=== PATIENT | female | born 1930 | race African-American/Black ===

== ENCOUNTER 2016-04-08 13:54 | Emergency (ER) | payer OTHER ==
[~2016-04-08] VITALS: Ht 157.5 cm; Wt 74.8 kg
[~2016-04-08 13:54] MED LIST: ALDACTONE25 MG PO; COREG25 M1 PO; COUMADIN 7.5 M7.5 MG PO; COUMADIN4 M1 PO; FUROSEMIDE40 MG PO; HYDRALAZINE HCL25 MG PO; IMDUR 60MG TAB60 MG PO; JANUVIA25 M1 PO; LASIX20 MG PO; LASIX80 MG PO; LOVENOX 8080 MG/0.8 SC; PRINIVIL 5MG5 MG PO; SIMVASTATIN40 M1 PO; SPIRONOLACTONE25 MG PO; ZAROXOLYN 2.5M2.5 MG PO
--- NOTE | 2016-04-08 14:17 | ED UPPER/LOWER EXTREMITY COMPL ---
History of Present Illness General Chief Complaint: Lower Extremity Problems Stated Complaint: LEFT LEG PAIN Source: patient Exam Limitations: no limitations Allergies Coded Allergies: NO KNOWN ALLERGIES (01/01/13) Reconcile Medications Carvedilol (Coreg) 25 MG TABLET 1 TAB PO BID HEART (Reported) Furosemide 40 MG TABLET 1 TAB PO DAILY WATER PILL (Reported) Hydralazine HCl 25 MG TABLET 1 TAB PO BID BP (Reported) Isosorbide Mononitrate (Isosorbide Mononitrate ER) 60 MG TAB.ER.24H 1 TAB PO DAILY HEART (Reported) Metolazone 2.5 MG TABLET 1 TAB PO QTHURS WATER PILL (Reported) Simvastatin (Simvastatin*) 40 MG TABLET 1 TAB PO DAILY CHOLESTEROL (Reported) Sitagliptin Phosphate (Januvia) 25 MG TABLET 1 TAB PO DAILY DM (Reported) Spironolactone (Aldactone) 25 MG TABLET 1 TAB PO DAILY WATER PILL (Reported) Warfarin Sodium (Coumadin) 4 MG TABLET 1 TAB PO Q48 BLOOD THINNER (Reported) Triage Note: 85 Y/O FEMALE BIBA FROM HOME FOR EVAL OF L LEG AND L KNEE PAIN X 1 WEEK. PER EMS AND FAMILY MEMBER, PT WAS TOLD SHE HAS ARTHRITIS AND WAS ADVISED TO TAKE TYLENOL BUT HAS NOT TAKEN SAME - "DOESNT LIKE TAKING PILLS" PER EMS. PT ARRIVES A/O X 4, SPEAKING CLEARLY WITH NO DISTRESS NOTED. DENIES INJURIES OR TRAUMA TO THE LEG STATING IS HAS JUST BEEN BOTHERING HER AND NOW SHE IS UNABLE TO AMBULATE. GUERLINE STUDENT INTO EVAL. Triage Nurses Notes Reviewed? yes HPI: this patient is an 85-year-old female with a past medical history including CHF and hypertension who presented to the emergency department today for evaluation of left knee pain. The patient reported that and started on Tuesday and has progressively been getting worse. She typically walks without a walker or cane, but starting on Tuesday she needed to use her cane. The patient reported that last night she went to stand up and began having 10 out of 10 pain in her left knee and was unable to bear weight. The patient reported that when she is laying down she does not have any pain. The pain is worse with movement and palpation. The pain is nonradiating. The patient was told that she does have some arthritis and her primary care physician suggested that she take Tylenol. The patient does not like taking pills, so she did not take any Tylenol prior to arrival in the emergency department. The patient denied any history of blood clots, calf pain, difficulty breathing, chest pain, abdominal pain, fevers, chills, or numbness or tingling in her extremities. (DIANNA GARNER PA-C) Vital Signs & Intake/Output Vital Signs & Intake/Output Vital Signs Date Time Temp Pulse Resp B/P Pulse O2 O2 Flow FiO2 Ox Delivery Rate 04/09 1133 98.2 90 18 154/68 98 Room Air 04/09 0927 98.2 96 18 119/59 97 Room Air Past History Travel History Traveled to [place] past 21 day No Medical History Any Pertinent Medical History? see below for history Neurological: DIABETIC NEROPATHY Cardiovascular: CHF, hypertension, hyperlipidemia, nonischemic cardiomyopathy with an LVEF of 15-20% LVEF of 15-20% hypertensive heart disease FALL HX Respiratory: NONE Gastrointestinal: NONE Hepatic: NONE Renal: chronic kidney disease Musculoskeletal: NONE Psychiatric: NONE Endocrine: diabetes Blood Disorders: NONE Cancer(s): SIgmoid Carcinoma, s/p Polypectomy History of MRSA: No History of VRE: No History of CDIFF: No Pneumonia Vaccine: 11/07/06 Surgical History Surgical History: non-contributory Psychosocial History Who do you live with Patient/Self Services at Home Home Health Aide, Nursing What is your primary language Sinhala Tobacco Use: Never used Family History Family History, If Any: FATHER (HTN). MOTHER (DM). BROTHER BROTHER (Lung Cancer). Relation not specified for: FH: diabetes mellitus FH: hypertension Hx Contributory? No (DIANNA GARNER PA-C) Review of Systems Review of Systems Constitutional: Reports: no symptoms. EENTM: Reports: no symptoms. Respiratory: Reports: no symptoms. Cardiovascular: Reports: no symptoms. Gastrointestinal/Abdominal: Reports: no symptoms. Genitourinary: Reports: no symptoms. Musculoskeletal: Reports: see HPI. Skin: Reports: no symptoms. Neurological/Psychological: Reports: no symptoms. All Other Systems: Reviewed and Negative (DIANNA GARNER PA-C) Physical Exam Physical Exam General Appearance: well developed/nourished, no apparent distress, alert, awake Comments: Well-developed well-nourished person in no acute distress HEENT: Normal EENT exam, head normocephalic/atraumatic. Pupils equally round and reactive to light. Back: Normal inspection Cardiovascular: Regular rate and rhythm with no murmurs, rubs or gallops Respiratory: No respiratory distress. Breath sounds clear to auscultation bilaterally Abdomen: Soft, nontender and nondistended Left lower extremity: No effusions or overlying erythema or ecchymosis to the hip or ankle. Full range of motion of the ankle and hip. Range of motion at the knee limited due to pain. Effusion to the knee noted with no overlying erythema or ecchymosis. Dorsalis pedis and posterior tibialis pulses 2+ and strong. Capillary refill less than 2 seconds. Tenderness to palpation over the patella and patellar tendon Neuro: Alert oriented x3, cranial nerves II through XII grossly intact. Skin: No appreciable rash on exposed skin, skin is warm and dry. Psych: Mood and affect is normal (PATSY ROSENTHAL,DIANNA) Progress Differential Diagnosis: arterial insufficiency, cellulitis, CHF, compartment syndrome, contusion, DVT, fracture, gout, septic arthritis, sprain, tendon injury Diagnostic Imaging: Viewed by Me: Radiology Read, Ultrasound. Discussed w/RAD: Radiology Read, Ultrasound. Radiology Impression: PATIENT: SHIRA BUCKNER PRESENT AGE: 85 PATIENT ACCOUNT NO: [id number] : 29 LOCATION: [facility] ORDERING PHYSICIAN: DIANNA GARNER PA-C SERVICE DATE: 04/08/16 EXAM TYPE: RAD - XRY-KNEE COMPLETE LEFT EXAMINATION: XR KNEE, LEFT CLINICAL INFORMATION: Left knee swelling. Evaluate for arthritis. COMPARISON: None TECHNIQUE: Four views of the left knee. FINDINGS: No acute fracture or subluxation. Mild medial compartment joint space narrowing with small tricompartmental osteophytes. There is anterior soft tissue swelling. Superior patellar enthesophyte formation. No significant joint effusion. IMPRESSION: Mild tricompartmental degenerative changes. Anterior soft tissue swelling. DICTATED BY: KARY NEWELL MD DATE/ TIME DICTATED:04/08/161505 CLEARING HOUSE CLERK:CLARICE DATE/TIME TRANSCRIBED: 04/08/161505 CONFIDENTIAL, DO NOT COPY WITHOUT APPROPRIATE AUTHORIZATION. < Electronically signed in Other Vendor System> SIGNED BY: KARY NEWELL MD 04/08/16 1513, PATIENT: SHIRA BUCKNER PRESENT AGE : 85 PATIENT ACCOUNT NO: [id number] : 29 LOCATION: [facility] ORDERING PHYSICIAN: DIANNA GARNER PA-C SERVICE DATE: 04/08/16 EXAM TYPE: US - US-UNILATERAL VENOUS DOPPLER EXAMINATION: US TRIPLEX LOWER EXTREMITY, LEFT CLINICAL INFORMATION: Edema, pain, swelling. COMPARISON: None TECHNIQUE: Color- flow triplex imaging with spectral analysis and compression Doppler were performed on the left lower extremity. FINDINGS: Respiratory variation, normal compression and augmented flow are noted throughout the lower extremity. The visualized common femoral vein, superficial femoral vein, profunda femoral vein, popliteal vein and midcalf peroneal and posterior tibial venous segments show no evidence of deep venous thrombosis. There is a popliteal cyst measuring 2.2 x 0.7 x 1.2 cm. IMPRESSION: Normal triplex scan without evidence of deep venous thrombosis involving the left lower extremity. DICTATED BY: DAGO GOEL MD DATE /TIME DICTATED:04/08/161536 CLEARING HOUSE CLERK:CLARICE DATE/TIME TRANSCRIBED: 04/08/161536 CONFIDENTIAL, DO NOT COPY WITHOUT APPROPRIATE AUTHORIZATION. < Electronically signed in Other Vendor System> SIGNED BY: DAGO GOEL MD 1542 Hand-Off Endorsed To: YVAN MERINO MD Endorsed Time: 1954 Pending: consult Comments: 04/08/2016 2:38:56 PM: The patient is refusing any medication for pain. 04/08/2016 3:54:13 PM: Discussed this patient with Luci, case management. Patient is unable to ambulate. PT is no longer here for the evening. Patient is still refusing medication for pain. She patient will stay in the emergency department until she can be evaluated by PT. Possible short term rehab versus home with home services. Patient lives at home by herself. Discussed this patient with Dr. Jackson who is in agreement with the plan. (PATSY ROSENTHAL,DIANNA) Plan of Care: Orders Procedure Date/time Status PT EVAL MOD COMPLEX 30 MIN 04/09 UNK Complete PATIENT SIGNED OUT TO ME BY DR MERINO, PENDING PT EVALUATION/CASE MANAGEMENT. 11:37 PATIENT TO BE TRANSFERRED TO [facility] FOR PT/SHORT TERM REHAB. (MEMO GARBER,JENIFFER) Hand-Off Endorsed To: KATHERINE REEDER DO Endorsed Time: 07 Pending: consult (PT, case management) (YVAN MERINO MD) Departure Departure Disposition: ACUTE REHAB FACILITY Condition: Stable Clinical Impression Primary Impression: Left knee pain Qualifiers: Chronicity: unspecified Qualified Code: M25.562 - Pain in left knee Secondary Impressions: Unable to ambulate Referrals: AMERICA GARBER,DAGO [place] (PCP/Family) Departure Forms: Customer Survey General Discharge Information (DIANNA GARNER PA-C) PA/MEDICAL TRANSCRIPTION Co-Sign Statement Statement: ED Attending supervision documentation- [x] I saw and evaluated the patient. I have also reviewed all the pertinent lab results and diagnostic results. I agree with the findings and the plan of care as documented in the PA's/MEDICAL TRANSCRIPTION's documentation. [] I have reviewed the ED Record and agree with the PA's/MEDICAL TRANSCRIPTION's documentation. [] Additions or exceptions (if any) to the PAs/MEDICAL TRANSCRIPTION's note and plan are summarized below: [] (DINESH GARBER,KATHERINE John) PA/MEDICAL TRANSCRIPTION Co-Sign Statement Statement: ED Attending supervision documentation- x I saw and evaluated the patient. I have also reviewed all the pertinent lab results and diagnostic results. I agree with the findings and the plan of care as documented in the PA's/MEDICAL TRANSCRIPTION's documentation. [] I have reviewed the ED Record and agree with the PA's/MEDICAL TRANSCRIPTION's documentation. [] Additions or exceptions (if any) to the PAs/MEDICAL TRANSCRIPTION's note and plan are summarized below: [] (YVAN MERINO MD) Departure Time of Disposition: 1235 (MEMO GARBER,JENIFFER) (DIANNA GARNER PA-C) PA/MEDICAL TRANSCRIPTION Co-Sign Statement Statement: ED Attending supervision documentation- [x] I saw and evaluated the patient. I have also reviewed all the pertinent lab results and diagnostic results. I agree with the findings and the plan of care as documented in the PA's/MEDICAL TRANSCRIPTION's documentation. [] I have reviewed the ED Record and agree with the PA's/MEDICAL TRANSCRIPTION's documentation. [] Additions or exceptions (if any) to the PAs/MEDICAL TRANSCRIPTION's note and plan are summarized below: [] (KATHERINE JACKSON MD) PA/MEDICAL TRANSCRIPTION Co-Sign Statement Statement: ED Attending supervision documentation- x I saw and evaluated the patient. I have also reviewed all the pertinent lab results and diagnostic results. I agree with the findings and the plan of care as documented in the PA's/MEDICAL TRANSCRIPTION's documentation. [] I have reviewed the ED Record and agree with the PA's/MEDICAL TRANSCRIPTION's documentation. [] Additions or exceptions (if any) to the PAs/MEDICAL TRANSCRIPTION's note and plan are summarized below: [] (ANGELIQUE GARBER,YVAN) Departure Time of Disposition: 1235 (MEMO GARBER,JENIFFER)
[2016-04-08] MEDS ORDERED: ISOSORBIDE MONO60 M1 PO (14:19)
[2016-04-08] MEDS ORDERED: FUROSEMIDE40 M1 PO (14:19)
[2016-04-08] MEDS ORDERED: METOLAZONE2.5 M1 PO (14:21)
[2016-04-08] MEDS ORDERED: HYDRALAZINE HCL25 M1 PO (14:22)
--- NOTE | 2016-04-08 15:13 | RADIOLOGY REPORT ---
EXAMINATION: XR KNEE, LEFT CLINICAL INFORMATION: Left knee swelling. Evaluate for arthritis. COMPARISON: None TECHNIQUE: Four views of the left knee. FINDINGS: No acute fracture or subluxation. Mild medial compartment joint space narrowing with small tricompartmental osteophytes. There is anterior soft tissue swelling. Superior patellar enthesophyte formation. No significant joint effusion. IMPRESSION: Mild tricompartmental degenerative changes. Anterior soft tissue swelling.
--- NOTE | 2016-04-08 15:42 | ULTRASOUND REPORT ---
EXAMINATION: US TRIPLEX LOWER EXTREMITY, LEFT CLINICAL INFORMATION: Edema, pain, swelling. COMPARISON: None TECHNIQUE: Color-flow triplex imaging with spectral analysis and compression Doppler were performed on the left lower extremity. FINDINGS: Respiratory variation, normal compression and augmented flow are noted throughout the lower extremity. The visualized common femoral vein, superficial femoral vein, profunda femoral vein, popliteal vein and midcalf peroneal and posterior tibial venous segments show no evidence of deep venous thrombosis. There is a popliteal cyst measuring 2.2 x 0.7 x 1.2 cm. IMPRESSION: Normal triplex scan without evidence of deep venous thrombosis involving the left lower extremity.
[2016-04-09 11:33] VITALS: BP 154/68
== END 2016-04-09 13:02 ==
LOC: ERH 13:54
DX: M25.562 Pain in left knee (principal); R26.89 Other abnormalities of gait and mobility; E11.9 Type 2 diabetes mellitus without complications; Z79.84 Long term (current) use of oral hypoglycemic drugs
CPT/HCPCS: 73562-LT; 97162-GP

== ENCOUNTER 2016-04-09 19:42 | Inpatient (IN) | payer OTHER ==
[~2016-04-09] VITALS: Ht 157.5 cm; Wt 76.2 kg
[~2016-04-09 19:42] MED LIST changes: +FUROSEMIDE40 M1 PO; +HYDRALAZINE HCL25 M1 PO; +ISOSORBIDE MONO60 M1 PO; +METOLAZONE2.5 M1 PO
--- NOTE | 2016-04-09 19:46 | ED GENERAL ADULT ---
History of Present Illness General Chief Complaint: Fever Stated Complaint: BIBA FOR FEVER Source: patient, old records, EMS, [facility] Exam Limitations: confusion Vital Signs & Intake/Output Vital Signs & Intake/Output Vital Signs Date Time Temp Pulse Resp B/P Pulse O2 O2 Flow FiO2 Ox Delivery Rate 04/09 1950 98 Room Air 04/09 1945 98.6 97 18 149/73 98 Room Air Allergies Coded Allergies: NO KNOWN ALLERGIES (01/01/13) Reconcile Medications Carvedilol (Coreg) 25 MG TABLET 1 TAB PO BID HEART (Reported) Furosemide 40 MG TABLET 1 TAB PO DAILY WATER PILL (Reported) Hydralazine HCl 25 MG TABLET 1 TAB PO BID BP (Reported) Isosorbide Mononitrate (Isosorbide Mononitrate ER) 60 MG TAB.ER.24H 1 TAB PO DAILY HEART (Reported) Metolazone 2.5 MG TABLET 1 TAB PO QTHURS WATER PILL (Reported) Simvastatin (Simvastatin*) 40 MG TABLET 1 TAB PO DAILY CHOLESTEROL (Reported) Sitagliptin Phosphate (Januvia) 25 MG TABLET 1 TAB PO DAILY DM (Reported) Spironolactone (Aldactone) 25 MG TABLET 1 TAB PO DAILY WATER PILL (Reported) Warfarin Sodium (Coumadin) 4 MG TABLET 1 TAB PO Q48 BLOOD THINNER (Reported) Triage Nurses Notes Reviewed? yes Onset: Gradual Duration: hour(s): Timing: single episode today Injury Environment: at rehab Severity: mild Modifying Factors: Improves With: rest. Associated Symptoms: fever at rehab HPI: 85-year-old woman from short-term rehabilitation presents with a fever of more than 101. Per the medics and the chart, she was recently discharged from the emergency department due to right leg pain the workup was benign. However because she could not ambulate, she was transferred for short-term rehabilitation facility. Upon arrival to short-term rehabilitation they noted that she had a fever. They sent her to the emergency department for further evaluation. Patient states that she feels well. She has no dysuria cough dyspnea abdominal pain chest pain headache sore throat runny nose ear pain. She is otherwise well. She has no other concerns. Past History Travel History Traveled to [place] past 21 day No Medical History Any Pertinent Medical History? see below for history Neurological: DIABETIC NEROPATHY Cardiovascular: CHF, hypertension, hyperlipidemia, nonischemic cardiomyopathy with an LVEF of 15-20% LVEF of 15-20% hypertensive heart disease FALL HX Respiratory: NONE Gastrointestinal: NONE Hepatic: NONE Renal: chronic kidney disease Musculoskeletal: NONE Psychiatric: NONE Endocrine: diabetes Blood Disorders: NONE Cancer(s): SIgmoid Carcinoma, s/p Polypectomy History of MRSA: No History of VRE: No History of CDIFF: No Surgical History Surgical History: non-contributory Psychosocial History Who do you live with Patient/Self Services at Home Home Health Aide, Nursing What is your primary language Moroccan Family History Family History, If Any: FATHER (HTN). MOTHER (DM). BROTHER BROTHER (Lung Cancer). Relation not specified for: FH: diabetes mellitus FH: hypertension Hx Contributory? No Review of Systems Review of Systems Constitutional: Reports: no symptoms. EENTM: Reports: no symptoms. Respiratory: Reports: no symptoms. Cardiovascular: Reports: no symptoms. GI: Reports: no symptoms. Genitourinary: Reports: no symptoms. Musculoskeletal: Reports: no symptoms. Skin: Reports: no symptoms. Neurological/Psychological: Reports: no symptoms. Hematologic/Endocrine: Reports: no symptoms. Immunologic/Allergic: Reports: no symptoms. All Other Systems: Reviewed and Negative Physical Exam Physical Exam General Appearance: well developed/nourished, mild distress Head: atraumatic, normal appearance Eyes: Bilateral: normal appearance, PERRL, EOMI. Ears, Nose, Throat: normal ENT inspection, dry mucosa Neck: normal inspection, supple, full range of motion Respiratory: normal breath sounds, chest non-tender, no respiratory distress, quiet respiration, lungs clear Cardiovascular: regular rate/rhythm Gastrointestinal: normal bowel sounds, soft, non-tender, no organomegaly Back: normal inspection, normal range of motion Extremities: normal inspection, normal capillary refill Neurologic/Psych: no motor/sensory deficits, awake, alert, axox1 Skin: intact, normal color, warm/dry Core Measures ACS in differential dx? No CVA/TIA Diagnosis: No Severe Sepsis Present: No Septic Shock Present: No Progress Differential Diagnoses I considered the following diagnoses in my evaluation of the patient: dehydration, uti, pneumonia, viral syndrome, influenza vs other. Plan of Care: Orders Procedure Date/time Status Nothing by Mouth 04/10 B Active FingerStick- Glucose 04/09 2058 Active EKG 04/10 2051 Active Saline Lock 04/10 2043 Active Misc Message 04/10 2043 Active ED Holding Orders 04/10 2043 Active Admit to inpatient 04/10 2043 Active Vital Signs 04/10 2043 Active Code Status 04/10 2043 Active RAPID VIRAL INFLUENZA A 04/09 2017 Complete URINALYSIS 04/09 1946 Complete COMPREHENSIVE METABOLIC PANEL 04/09 1946 Complete CBC WITHOUT DIFFERENTIAL 04/09 1946 Complete Current Medications Sig/Ethel Start time Last Medication Dose Stop Time Status Admin Insulin Aspart 0 TIDAC 04/10 0800 CAN (NovoLOG) Laboratory Tests 04/09/16 2005: Anion Gap 16, Estimated GFR 18 L, BUN/Creatinine Ratio 25.6 H, Glucose 158 H, Calcium 8.8, Total Bilirubin 0.6, AST 48 H, ALT 35, Alkaline Phosphatase 118, Total Protein 6.9, Albumin 3.3 L, Globulin 3.6, Albumin/Globulin Ratio 0.9 L, CBC w Diff NO MAN DIFF REQ, RBC 3.95 L, MCV 82.3, MCH 27.5, RDW 14.3, MPV 7.1 L, Gran % 75.8 H, Lymphocytes % 13.0 L, Monocytes % 10.6 H, Eosinophils % 0, Basophils % 0.6, Absolute Granulocytes 8.4 H, Absolute Lymphocytes 1.4, Absolute Monocytes 1.2 H, Absolute Eosinophils 0, Absolute Basophils 0.1, PUBS MCHC 33.4 04/09/16 2003: Urinalysis LIGHT H, Urine Color YEL, Urine Clarity HAZY H, Urine pH 6.0, Ur Specific Junior 1.020, Urine Protein 100 H, Urine Ketones NEG, Urine Nitrite NEG, Urine Bilirubin NEG, Urine Urobilinogen 0.2, Ur Leukocyte Esterase NEG, Ur Microscopic SEDIMENT EXAMINED, Urine RBC 5-10 H, Urine WBC 1-3 H, Ur Epithelial Cells RARE, Urine Hemoglobin SMALL H, Urine Glucose NEG Diagnostic Imaging: Viewed by Me: Radiology Read. Discussed w/RAD: Radiology Read. CXR Impression: no acute abnormality, no infiltrates, normal size heart, normal mediastinum Initial ED EKG: normal axis, normal intervals, normal p-waves, normal QRS complex, normal sinus rhythm, WITH PVC'S, NO ACUTE CHANGE Departure Departure Disposition: STILL A PATIENT Condition: Stable Clinical Impression Primary Impression: Fever Secondary Impressions: Acute on chronic renal failure, Hypokalemia Referrals: AMERICA GABRER,DAGO [place] (PCP/Family) Departure Forms: Customer Survey General Discharge Information Admission Note Spoke With: WAI SCHMIDT MD Documentation of Exam: Documentation of any treatments & extenuating circumstances including Concerns Regarding Discharge (functional status, medication knowledge or non-compliance, living conditions, etc.) that warrant an admission rather than observation: pt with acute on chronic renal failure. also with hypokalemia... pt merits monitoring, iv hydration, potassium repletion. also , would follow fever curve... no fever in ED. Critical Care Note Critical Care Note Critical Care Time: non-applicable
--- NOTE | 2016-04-09 19:51 | NUR ---
PT CALEB FROM [facility] C/O FEVER. PT WAS D/C'D FROM ED EARLIER TODAY. PT HAS 0 COMPLAINTS WAS SENT IN BY PHYSICIAN AT [facility] FOR HIGH FEVER, EMS STATES THAT FACILITY COULD NOT GET TEMPERATURE CONTROLLED OR UNDER 101. ON ARRIVAL PT TEMP 98.6, DR KAY IN FOR EVAL
--- NOTE | 2016-04-09 20:09 | NUR ---
THIS RN AND JAMES GUZMAN CLEANED PT AND REMOVED PTS DIAPER PLACING PT ON THE PAD. THIS RN STRAIGHT CATHED PT FOR A URINE SAMPLE. URINE TRIO SENT BY JAMES GUZMAN. THIS RN ESTABLISHED IV ACCESS LFA #20, LABS DRAWN AND SENT BY THIS RN (CHERYL, BRITNI, ALVERTO. BLUE)
[2016-04-09 20:18] LABS: ABSOLUTE BASOPHIL COUNT 0.1 /CUMM (0.0-0.2); ABSOLUTE EOSINOPHIL COUNT 0 /CUMM (0.0-0.7); ABSOLUTE GRANULOCYTE CT 8.4 /CUMM (1.4-6.5); ABSOLUTE LYMPH COUNT 1.4 /CUMM (1.2-3.4); ABSOLUTE MONOCYTE COUNT 1.2 /CUMM (0.10-0.60); BASOPHIL % 0.6 % (0.0-2.0); EOSINOPHIL % 0 % (0-5); GRANULOCYTE % 75.8 % (42.2-75.2); HEMATOCRIT 32.5 % (37-47); MEAN CORPUSCULAR HGB 27.5 PG (27.0-31.0); MEAN CORPUSCULAR HGB CONC 33.4 G/DL (33.0-37.0); MEAN CORPUSCULAR VOLUME 82.3 FL (81.0-99.0); MEAN PLATELET VOLUME 7.1 FL (7.4-10.4); PLATELET COUNT 211 /CUMM (130-400); RBC DISTRIBUTION WIDTH 14.3 % (11.5-14.5); RED BLOOD CELL CT 3.95 /CUMM (4.20-5.40); WHITE BLOOD CELL COUNT 11.1 /CUMM (4.8-10.8)
--- NOTE | 2016-04-09 20:38 | RADIOLOGY REPORT ---
EXAMINATION: XR PORTABLE CHEST CLINICAL INFORMATION: Fever COMPARISON: 07/23/2014 TECHNIQUE: Portable AP view of the chest was obtained. FINDINGS: Lung volumes are symmetric. No focal consolidation is seen. No evidence of pneumothorax, pleural effusion, or pulmonary edema. Cardiac size is within normal limits. Calcification is present at the aortic arch. No acute osseous findings are seen. IMPRESSION: No acute cardiopulmonary findings.
--- NOTE | 2016-04-09 20:57 | NUR ---
FLU SWAB COLLECTED AND SENT TO LAB BY THIS MADIHA
--- NOTE | 2016-04-09 21:05 | NUR ---
PT HAS [id number] INFUSING IN D5W NS INFUSING AT 250ML/HR.
--- NOTE | 2016-04-09 21:08 | NUR ---
PTS FS 156, EKG COMPLETED BY JAMES GUZMAN
--- NOTE | 2016-04-09 21:51 | NUR ---
Emergency Dept UC Admit Note: To be admitted to [facility] by DR SCHMIDT with HYPOKALEMIA as the diagnosis, to TELE location. Nursing Software Engineer Kernel and admitting notified 04/09/16 at 2135 PT WILL GO TO ROOM 179-1
--- NOTE | 2016-04-09 21:54 | NUR ---
HOUSE STAFF IN FOR EVAL, BLOOD CULTURES COLLECTED AND SENT TO LAB
[2016-04-09 22:04] LABS: PT 14.8 SEC (9.4-12.5)
--- NOTE | 2016-04-09 22:08 | NUR ---
THIS RN GAVE REPORT TO MADIHA BENZ, TRANSPORTCALLED
--- NOTE | 2016-04-09 22:16 | NUR ---
TRANSPORT HERE FOR PT
--- NOTE | 2016-04-09 22:38 | History & Physical ---
EVERETTE BARNES MD 04/09/16 2201: General Information and HPI MD Statement: I have seen and personally examined SHIRA BUCKNER and documented this H&P. The patient is a 85 year old F sent in for evaluation from [facility] for fever. 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 EMS records and W10 demonstrate that patient has a fever of 101.6 today that did not respond to tylenol. EMS records demonstrate patient was afebrile on initial evaluation. Patient was seen in the [place] ED from the same short term rehabiliation center with complaints of left leg/knee pain for the past week with inability to ambulate secondary to pain. She was discharged back to [facility] after adequate pain control was acheived for further rehabilitation. Xray of the knee demonstrated mild tricompartmental degenerative changes with anterior soft tissue swelling. Dopple was negative for DVT. She normally ambulates with a cane, but has been using a walker. The pain is present now on evaluation and is described as being focal to her left knee as a 5/10 stabbing pain without radiation. She only admits to mild associated nausea. She has been eating and drinking and otherwise has no complaints. She denies any denies any blurred/double vision, lightheadedness/dizzyness, headache, subjective fever, chills, chest pain, palpitations, shortness of breath, cough, vomiting, diarrhea, numbness/tingling, urinary frequency/urgency/ burning/pain/discharge. PMHx: CHF, HTN, HLD, Nonischemic Cardiomyopathy EF 15-20%, NIDDM, CKD, Sigmoid Carcinoma s/p polypectomy, frequent falls Allergies/Medications Allergies: Coded Allergies: NO KNOWN ALLERGIES (01/01/13) Home Med list Carvedilol (Coreg) 25 MG TABLET 1 TAB PO BID HEART (Reported) Furosemide 40 MG TABLET 1 TAB PO DAILY WATER PILL (Reported) Hydralazine HCl 25 MG TABLET 1 TAB PO BID BP (Reported) Isosorbide Mononitrate (Isosorbide Mononitrate ER) 60 MG TAB.ER.24H 1 TAB PO DAILY HEART (Reported) Metolazone 2.5 MG TABLET 1 TAB PO QTHURS WATER PILL (Reported) Simvastatin (Simvastatin*) 40 MG TABLET 1 TAB PO DAILY CHOLESTEROL (Reported) Sitagliptin Phosphate (Januvia) 25 MG TABLET 1 TAB PO DAILY DM (Reported) Spironolactone (Aldactone) 25 MG TABLET 1 TAB PO DAILY WATER PILL (Reported) Warfarin Sodium (Coumadin) 4 MG TABLET 1 TAB PO Q48 BLOOD THINNER (Reported) Compliance With Home Meds: GOOD Past History Travel History Traveled to [place] past 21 day No Medical History Neurological: DIABETIC NEROPATHY Cardiovascular: CHF, hypertension, hyperlipidemia, nonischemic cardiomyopathy with an LVEF of 15-20% LVEF of 15-20% hypertensive heart disease FALL HX Respiratory: NONE Gastrointestinal: NONE Hepatic: NONE Renal: chronic kidney disease Musculoskeletal: NONE Psychiatric: NONE Endocrine: diabetes Blood Disorders: NONE Cancer(s): SIgmoid Carcinoma, s/p Polypectomy History of MRSA: No History of VRE: No History of CDIFF: No Surgical History Surgical History: non-contributory Past Family/Social History Family History Relations & Conditions if any FATHER (HTN). MOTHER (DM). BROTHER BROTHER (Lung Cancer). Relation not specified for: FH: diabetes mellitus FH: hypertension Psychosocial History Services at Home: Home Health Aide, Nursing Review of Systems Review of Systems Constitutional: Reports: see HPI. Exam & Diagnostic Data Last 24 Hrs of Vital Signs/I&O Vital Signs Date Time Temp Pulse Resp B/P Pulse O2 O2 Flow FiO2 Ox Delivery Rate 04/09 1950 98 Room Air 04/09 1945 98.6 97 18 149/73 98 Room Air Physical Exam General Appearance Alert, Cooperative, No Acute Distress Skin No Rashes, No Breakdown, No Significant Lesion HEENT Atraumatic, PERRLA, EOMI, Mucous Membr. moist/pink Neck Supple Cardiovascular Regular Rate, Normal S1, Normal S2, No Murmurs Lungs Minimal bibasilar crackles Abdomen Normal Bowel Sounds, Soft, No Tenderness, No Hepatospenomegaly, No Masses Neurological Normal Speech, Normal Tone, Cranial Nerves 3-12 NL Extremities No Clubbing, No Cyanosis, Normal Pulses, Warm left tender swollen knee without obviosu erythema or rash or recent injury Vascular Normal Pulses, Pulses Symmetrical Last 24 Hrs of Labs/Jonathan: Laboratory Tests 04/09/162004: Anion Gap 16, Estimated GFR 18 L, BUN/Creatinine Ratio 25.6 H, Glucose 158 H, Calcium 8.8, Total Bilirubin 0.6, AST 48 H, ALT 35, Alkaline Phosphatase 118, Troponin I Pending, Xkb-G-Tzxdagljenu Pept Pending, Total Protein 6.9, Albumin 3.3 L, Globulin 3.6, Albumin/Globulin Ratio 0.9 L, PT Pending, INR Pending, CBC w Diff NO MAN DIFF REQ, RBC 3.95 L, MCV 82.3, MCH 27.5, RDW 14.3, MPV 7.1 L, Gran % 75.8 H, Lymphocytes % 13.0 L, Monocytes % 10.6 H, Eosinophils % 0, Basophils % 0.6, Absolute Granulocytes 8.4 H, Absolute Lymphocytes 1.4, Absolute Monocytes 1.2 H, Absolute Eosinophils 0, Absolute Basophils 0.1, PUBS MCHC 33.4 04/09/16 2003: Urinalysis LIGHT H, Urine Color YEL, Urine Clarity HAZY H, Urine pH 6.0, Ur Specific [place] 1.020, Urine Protein 100 H, Urine Ketones NEG, Urine Nitrite NEG, Urine Bilirubin NEG, Urine Urobilinogen 0.2, Ur Leukocyte Esterase NEG, Ur Microscopic SEDIMENT EXAMINED, Urine RBC 5-10 H, Urine WBC 1-3 H, Ur Epithelial Cells RARE, Urine Hemoglobin SMALL H, Urine Glucose NEG Microbiology 04/09 2154 NASOPHARYN: Influenza Virus A & B Rapid Smear - COMP 04/10 2151 BLOOD: Blood Culture - RECD 04/09 2134 BLOOD: Blood Culture - RECD Diagnostic Data EKG Results NSR HR 91 NJ 224 QTc 368 PVC with 1st degree AVB Assessment/Plan Assessment: 85 year old woman with multiple medical problems seen for evaluation of persistent fever and left knee pain with inability to ambulate for at least one week. Patient was seen and evaluated in the [place] ED yesteray for left leg/ knee pain for which she refused any medicaiton for pain control. Radiograph of the knee demonstrated tricompartmental degenerative changes with anterior soft tissue swelling in the left knee and no obvious fracture. Dopple was negative for DVT. Given her reported history of a fever of 101.6 at [facility] and her persistent leg pain and physical examination demonstrating a hot swollen tender left knee it is possible that the patient has an septic joint. Patient to to be admitted to the telemetry floor for further evalution. Possible Infection Patient reportedly febrile to 101.6 at [facility] without respond to acetaminophen. Patient afebrile to 99.0 per EMS on ED arrival. Patient reports left lower extremity pain localized to her knee. Knee is hot swollen and tender. Xray of need demonstrates tricompartmental changes with anterior swelling on ED evaluation yesterday with a negative doppler for DVT. CBC demonstrates mild leukocytosis. UA negative. -No antibiotics for now -Obtain BNP -Blood cultures x2 Hx of Congestive Heart Failure with Hypokalemia Patient has a history of congestive heart failure maintained on multiple diuretics. Patient of Dr. Schumacher. She reports adequate oral intake. Potassium on initial evaluation was 2.9 without any new EKG changes. -Telemetry -Trend Troponin/EKG -Hold Metolazone -Replete potassium as needed -Cardiology consult in AM -Daily BEP Acute Kidney Injury on Chronic Kidney Disease Baseline creatinine 1.9 as of July 2015. Creatinine on initial evaluation 2.5. Non Insulin Dependent Diabetes Mellitus -Accuchecks TIDAC/HS -Hold oral hypoglycemics -Novolog SSI Hypertension -Coreg 25mg PO BID -Hydralazine 25mg PO BID Hyperlipidemia - Atorvastatin 40mg PO Daily Pain Plan - Acetaminophen, Morphine DVT PPx - Heparin SC Diet - Heart Healthy Diet Code status - DNR/DNI As Ranked By This Provider Problem List: 1. Fever Core Measures/Miscellaneous Acute Coronary Syndrome ACS Diagnosis: No Cerebrovascular Accident CVA/TIA Diagnosis: No Congestive Heart Failure CHF Diagnosis: No Venous Thromboembolism VTE Risk Factors: Acute medical illness, Age > 40 [facility] prophylaxis d/t: No contraindications No VTE Pharm Prophylaxis d/t: No contraindications VTE Diagnosis: No VTE Type: NONE VTE Confirmed by (Test): NONE Severe Sepsis Severe Sepsis Present: No Septic Shock Septic Shock Present: No Miscellaneous Documentation Attending Case Discussed With: WAI SCHMIDT MD Primary Care Physician: DAGO CROSS MD Patient sees these Specialists Dr. Schumacher Level of Patient Care: Telemetry Consults Needed: Consulting Specialty: Cardiology ELIZABETH HARRIS 04/09/16 2356: Resident Review Statement Resident Statement: discussed with mechanical engineering intern, agreed with mechanical engineering intern, discussed with family Other Findings: Patient is 81 year old female with PMH of HTN, DM type 2, CHF with EF of 20% from last echo, katie came with chief complain of left knee pain. Patient came from home to ER yesterday for left knee pain, she was evaluated with venous Doppler and left knee x-ray which were significant for anterior soft tissue swelling and no DVT. From ER, patient was discharged to [facility] for difficulty on ambulation. Patient was sent back to ER again today for fever of 101. Patient reports that her left knee pain has worsenend and is associated with local tenderness. The knee pain worsened on ambulation or knee movement. As per patients Daughter, the pain started around 3 days ago. Labs and Vitals as above. On Physical exam, Mild bibasilar crackles heard, S1 S2, Tender, red swollen left knee joint with restricted ROM, normal right knee joint. USG and left knee x ray from 04/08/16 Mild tricompartmental degenerative changes. Anterior soft tissue swelling. Normal triplex scan without evidence of deep venous thrombosis involving the left lower extremity. CXR from 04/10/16 No acute cardio pulmonary process Assessment and Plan Right knee swelling could eb due to septic bursitis (inflamation of pre-patellar bursa) given the leukocytosis and fever. WIll start patient on IV cefazolin, will trend CBC for leukocytosis and monitor for fevers. Patient does not have any history of gout or hx of local trauma. Elevated creatinine, could be pre-renal as patient was not been eating and drinking well the day prior to coming to ER or this could be her new baseline as no prior creatinien is avaliable in last 3 months to compare with. Will continue to moniotr creatinine Hypokalemia 2.9 on admission, she was given 40 IV and 40 po, repeat is still low. WIll continue to monitor and goal is to keep the levels above 3.5- 4 given her cardiac history Patient has EF of 15-20% from her previous echocardiograms, no evidence of CHF exacerbation at this point. Will continue her coreg, hydralazine, spirinolactone and isosorbid mononitrate. Will continue to monitor WIll hold oral antidiabetic agents and start on novolog SS. Patient is DNR/DNI DVT ppx SC WAI Gil 04/10/16 0104: Attending MD Review Statement Attending Statement Attending MD Statement: examined this patient, discuss w/resident/PA/FREELANCE ART DIRECTOR, agreed w/resident/PA/FREELANCE ART DIRECTOR, reviewed EMR data (avail), reviewed images, amended to note Attending Assessment/Plan: Cc: Fever PMH : HLD, HTN, DM, CKD nonischemic cardiomyopathy, HFrEF ( EF 15-20%, in 2015), S/P polypectomy, Hx DVT Patient was in ER yesterday for left knee pain, she was evaluated with venous Doppler and left knee x-ray which showed mild degenerative disease and anterior soft tissue swelling, patient was discharged to [facility] from ER for not being able to ambulate. Patient was sent back to ER again today for fever of 101. Patient persistently complains of pain in left lower extremity more so in many, unable to move the leg, unable to walk, denies chills, cough, shortness of breath, chest pain, chest tightness, urinary complaints, abdominal pain, any GI complaints. Patient states she has been having this knee pain since last 1 week. Did not have any fever at home before today, denied any trauma, did not take any pain medications at home. She states that "I have bad heart", has been compliant with all her medications. Vitals: Afebrile, pulse in 90s, heart, BP, O2 saturation in acceptable range. On examination: Thin built, no acute distress, a O 3, mucosa dry, no JVD, no neck supple, no lymphadenopathy. CVS: S1-S2, RRR. RS: Clear to auscultate bilaterally basis. Abdomen: Soft, NT, ND, bowel sounds present. No focal neurological deficits but difficult to examine lower extremities as patient is not moving much because of pain. Bilateral knees are swollen, left knee mild erythematous and warm, fluctuating probably cystic structure in front of patella. Labs: WBC 11.1, neutrophils 75%, no bands. Hemoglobin 10.9, MCV 82, sodium 144, potassium 2.9, BUN 64, creatinine 2.5 (previous 1.9, in July 2015), glucose 158, AST 48 CXR: No acute cardiopulmonary process A and P #1 elevated creatinine: Her previous was 1.9 in July 2015, if this is progression of her C [place] versus acute injury is unclear at this point, denies any symptoms related to volume overload, no confusions, no urinary problems. Patient received 1 L D5 NS with potassium in ER. For now saline lock IV, no IV fluids. I's and O's strict, hold Lasix, repeat CMP in a.m. #2 hypokalemia : Potassium is 2.9, unclear cause, no GI losses, probably secondary to diuresis. Hold Lasix for now, repeat BMP in a.m.. Replace 40 meq by mouth, repeat potassium in 4 hours. #3 right knee has some soft tissue swelling in front of patella, fluctuation present, probably a cyst. Should rule out an abscess, given mild warmth and redness. Continue IV cefazolin renally adjusted for now, discontinue once cellulitis/ abscess was ruled out #4 HFrEF : No evidence of acute volume overload. Hold Lasix for mild increased creatinine and decreased potassium, continue rest of her home medications include Coreg, hydralazine, isosorbide mononitrate, Aldactone. Patient takes metolazone once a week need to confirm the day. #5 DM: Hold Januvia, sliding scale short acting insulin. #6 continue simvastatin, heparin for DVT prophylaxis, adequate pain control.
[2016-04-09 22:39] VITALS: BP 144/72
--- NOTE | 2016-04-10 01:06 | Admission Certification ---
Admission Certification Certification Statement - As attending physician, I certify that at the time of - admission, based on clinical presentation, severity of - symptoms, need for further diagnostic testing and - therapeutic interventions, and risk of adverse outcomes - without in-hospital treatment, in my clinical assessment, - this patient requires an acute hospital stay for a minimum - of two nights or longer. I have also considered psychsocial - factors such as support system, advanced age, financial - issues, cognitive issues, and failed out-patient treatments, - past re-admission history, safety of patient, and lack of - compliance as applicable. Specific rationale supporting this admission is: Renal insufficiency, hypokalemia, left knee pain
[2016-04-10 07:40] VITALS: BP 130/70
--- NOTE | 2016-04-10 07:53 | PN- Housestaff ---
ELIZABETH HARRIS 04/10/16 0752: Subjective Follow-up For: left knee pain and swelling Subjective: Patient seen and examined. Reports of left knee pain and pain on movement. Patient has been afebrile, morning labs still pending. ROS negative except for nausea. Review of Systems Constitutional: Reports: see HPI. Objective Last 24 Hrs of Vital Signs/I&O Vital Signs Date Time Temp Pulse Resp B/P Pulse O2 O2 Flow FiO2 Ox Delivery Rate 04/10 0000 95 Room Air 04/09 2238 98.2 93 18 144/72 98 Room Air 04/09 1951 98 Room Air 04/09 1945 98.6 97 18 149/73 98 Room Air Intake & Output 04/10 0800 04/10 0000 04/09 1600 Intake Total 120 Output Total 200 Balance 120 -200 Intake, Oral 120 Output, Urine 200 Patient 76.204 kg Weight Physical Exam General Appearance: Alert, Oriented X3, Cooperative, No Acute Distress Skin: No Rashes, No Breakdown HEENT: Atraumatic Neck: Supple Cardiovascular: Normal S1, Normal S2 Lungs: BIBASILAR CRACKLES Abdomen: Soft, No Tenderness, No Hepatospenomegaly Extremities: No Cyanosis, No Edema Current Medications: Current Medications Sig/Ethel Start time Last Medication Dose Route Stop Time Status Admin Acetaminophen 650 MG Q8P PRN 04/09 2230 AC 04/10 PO 0433 Acetaminophen 1,000 MG Q8P PRN 04/09 2230 AC IV Atorvastatin Calcium 40 MG 1700 / 1700 AC PO Carvedilol 25 MG BID 04/10 1000 AC PO Cefazolin Sodium 500 MG Q12 04/10 0100 AC 04/10 IV 0242 Heparin Sodium 5,000 UNIT Q8 / 0600 AC 04/10 (Porcine) SC 0609 Hydralazine HCl 25 MG BID 04/10 1000 AC PO Insulin Aspart 0 TIDAC 04/10 0800 CAN SC Insulin Aspart 0 TIDAC 04/10 0800 AC SC Morphine Sulfate 1 MG Q12P PRN 04/09 2230 AC 04/09 IV 2242 Potassium Chloride 40 MEQ ONCE ONE 04/10 0615 DC 04/10 PO 04/10 0616 0610 Potassium Chloride 40 MEQ ONCE ONE 04/09 2230 DC 04/09 PO 04/09 2231 2323 Potassium Chloride 40 MEQ Q8H 04/09 2045 DC 04/09 Dextrose/Sodium 1,000 ML IV 2103 Chloride Last 24 Hrs of Lab/Jonathan Results Last 24 Hrs of Labs/Mics: Laboratory Tests 04/10/16 0655: Sodium Pending, Potassium Pending, Chloride Pending, Carbon Dioxide Pending, Anion Gap Pending, BUN Pending, Creatinine Pending, BUN/Creatinine Ratio Pending , Glucose Pending, Calcium Pending, Total Bilirubin Pending, AST Pending, ALT Pending, Alkaline Phosphatase Pending, Total Protein Pending, Albumin Pending, Globulin Pending, Albumin/Globulin Ratio Pending, CBC w Diff Pending, WBC Pending, RBC Pending, Hgb Pending, Hct Pending, MCV Pending, MCH Pending, RDW Pending, Plt Count Pending, MPV Pending, PUBS MCHC Pending 04/10/16 0100: Estimated GFR 19 L 04/09/162004: Anion Gap 16, Estimated GFR 18 L, BUN/Creatinine Ratio 25.6 H, Glucose 158 H, Calcium 8.8, Total Bilirubin 0.6, AST 48 H, ALT 35, Alkaline Phosphatase 118, Creatine Kinase 433 H, Troponin I < 0.01, Smz-N-[place]ot[place] Pept 2890 H, Total Protein 6.9, Albumin 3.3 L, Globulin 3.6, Albumin/Globulin Ratio 0.9 L, PT 14.8 H, INR 1.41 H, CBC w Diff NO MAN DIFF REQ, RBC 3.95 L, MCV 82.3, MCH 27.5, RDW 14.3, MPV 7.1 L, Gran % 75.8 H, Lymphocytes % 13.0 L, Monocytes % 10.6 H, Eosinophils % 0, Basophils % 0.6, Absolute Granulocytes 8.4 H, Absolute Lymphocytes 1.4, Absolute Monocytes 1.2 H, Absolute Eosinophils 0, Absolute Basophils 0.1, PUBS MCHC 33.4 04/09/162002: Urinalysis LIGHT H, Urine Color YEL, Urine Clarity HAZY H, Urine pH 6.0, Ur Specific [place] 1.020, Urine Protein 100 H, Urine Ketones NEG, Urine Nitrite NEG, Urine Bilirubin NEG, Urine Urobilinogen 0.2, Ur Leukocyte Esterase NEG, Ur Microscopic SEDIMENT EXAMINED, Urine RBC 5-10 H, Urine WBC 1-3 H, Ur Epithelial Cells RARE, Urine Hemoglobin SMALL H, Urine Glucose NEG Microbiology 03/03 2155 NASOPHARYN: Influenza Virus A & B Rapid Smear - COMP 04/10 2151 BLOOD: Blood Culture - RECD 04/09 2134 BLOOD: Blood Culture - RECD Assessment/Plan Assessment: Patient is 81 year old female with PMH of HTN, DM type 2, CHF with EF of 20% from last echo, hypwerlipidemia came with chief complain of left knee pain. Patient came from home to ER yesterday for left knee pain, she was evaluated with venous Doppler and left knee x-ray which were significant for anterior soft tissue swelling and no DVT. From ER, patient was discharged to [facility] for difficulty on ambulation. Patient was sent back to ER again today for fever of 101. Patient reports that her left knee pain has worsenend and is associated with local tenderness. The knee pain worsened on ambulation or knee movement. As per patients Daughter, the pain started around 3 days ago. Labs and Vitals as above. On Physical exam, Mild bibasilar crackles heard, S1 S2, Tender, red swollen left knee joint with restricted ROM, normal right knee joint. USG and left knee x ray from 04/08/16 Mild tricompartmental degenerative changes. Anterior soft tissue swelling. Normal triplex scan without evidence of deep venous thrombosis involving the left lower extremity. CXR from 04/10/16 No acute cardio pulmonary process Assessment and Plan Right knee swelling could bE due to septic bursitis (inflamation of pre-patellar bursa) given the leukocytosis and fever. WIll start patient on IV cefazolin, will trend CBC for leukocytosis and monitor for fevers. Patient does not have any history of gout or hx of local trauma. Elevated creatinine, could be pre-renal as patient was not been eating and drinking well the day prior to coming to ER or this could be her new baseline as no prior creatinien is avaliable in last 3 months to compare with. Will continue to moniotr creatinine Hypokalemia 2.9 on admission, she was given 40 IV and 40 po, repeat is still low. WIll continue to monitor and goal is to keep the levels above 3.5- 4 given her cardiac history Patient has EF of 15-20% from her previous echocardiograms, no evidence of CHF exacerbation at this point. Will continue her coreg, hydralazine, spirinolactone and isosorbid mononitrate. Will continue to monitor WIll hold oral antidiabetic agents and start on novolog SS. Patient is DNR/DNI DVT ppx SC heprin Problem List: 1. Hypokalemia 2. Acute on chronic renal failure 3. Left knee pain 4. Diabetes mellitus type 2 Pain Ratin Pain Location: LEFT KNEE Pain Goal: Pain 4 or less Pain Plan: TYLENOL PO, TORADOL, MORPHINE Tomorrow's Labs & Rationales: CBC BEP Consulting Request: Consulting Specialty: Cardiology HERIBERTO VIERA MD 04/10/16 1858: Attending MD Review Statement Attending Statement Attending MD Statement: examined this patient, discuss w/resident/PA/INTELLIGENCE RESEARCH SPECIALIST, agreed w/resident/PA/INTELLIGENCE RESEARCH SPECIALIST, reviewed EMR data (avail) Attending Assessment/Plan: 85F PMH HLD, HTN, DM, CKD nonischemic cardiomyopathy, HFrEF ( EF 15-20%, in 2014 ), S/P polypectomy, Hx DVT admitted for left knee pain and fever, found to be hypokalemic with mildly elevated creatinine. Patient reports continued left knee pain today. There is no warmth or erythema. The knee is mildly tender but not swollen. She has been afebrile since admission. Plan - Replete potassium - Ortho consult for knee pain tomorrow - Discontinue antibiotics - Pain control for knee - Continue home medications - PT eval - DVT PPx
[2016-04-10 08:52] LABS: ABSOLUTE BASOPHIL COUNT 0 /CUMM (0.0-0.2); ABSOLUTE EOSINOPHIL COUNT 0 /CUMM (0.0-0.7); ABSOLUTE LYMPH COUNT 1.1 /CUMM (1.2-3.4); BASOPHIL % 0.4 % (0.0-2.0); EOSINOPHIL % 0.2 % (0-5); GRANULOCYTE % 79.1 % (42.2-75.2); HEMATOCRIT 30.1 % (37-47); MEAN CORPUSCULAR VOLUME 82.4 FL (81.0-99.0); PLATELET COUNT 185 /CUMM (130-400); RBC DISTRIBUTION WIDTH 14.3 % (11.5-14.5); RED BLOOD CELL CT 3.66 /CUMM (4.20-5.40); WHITE BLOOD CELL COUNT 10.1 /CUMM (4.8-10.8)
[2016-04-10 16:05] VITALS: BP 120/70
[2016-04-10 23:52] VITALS: BP 118/60
[2016-04-11 08:11] LABS: ABSOLUTE BASOPHIL COUNT 0 /CUMM (0.0-0.2); ABSOLUTE EOSINOPHIL COUNT 0 /CUMM (0.0-0.7); ABSOLUTE GRANULOCYTE CT 7.2 /CUMM (1.4-6.5); ABSOLUTE MONOCYTE COUNT 0.7 /CUMM (0.10-0.60); BASOPHIL % 0.3 % (0.0-2.0); EOSINOPHIL % 0.2 % (0-5); GRANULOCYTE % 80.9 % (42.2-75.2); HEMATOCRIT 29.7 % (37-47); MEAN CORPUSCULAR HGB 27.5 PG (27.0-31.0); MEAN CORPUSCULAR VOLUME 83.5 FL (81.0-99.0); MEAN PLATELET VOLUME 8.1 FL (7.4-10.4); PLATELET COUNT 167 /CUMM (130-400); RBC DISTRIBUTION WIDTH 14.8 % (11.5-14.5); RED BLOOD CELL CT 3.55 /CUMM (4.20-5.40); WHITE BLOOD CELL COUNT 8.9 /CUMM (4.8-10.8)
[2016-04-11 08:15] VITALS: BP 120/60
--- NOTE | 2016-04-11 08:39 | PN- Housestaff ---
See Addendum Subjective Follow-up For: Left knee pain with swelling and warmth Tele-Events Since Last Visit: SR HR 80s, no overnight events Subjective: Patient seen and examined at bedside this AM. SHe is resting comfortably in bed without distress. She endorses pain in her left knee with any movement of the left lower extremity. It is sensitive to touch and she has been laying still to prevent exacerbation of the pain. She denies confusion, headache, chest pain, palpitations, shortness of breath or weakness. Review of Systems Constitutional: Reports: malaise. Denies: chills, fever. EENTM: Denies: visual changes, hearing changes. Cardiovascular: Denies: chest pain, palpitations. Respiratory: Denies: cough, short of breath. Gastrointestinal: Denies: abdominal pain. Genitourinary: Denies: dysuria. Musculoskeletal: Reports: joint pain, joint swelling. Skin: Denies: rash. Neurological/Psychological: Denies: confusion. Objective Last 24 Hrs of Vital Signs/I&O Vital Signs Date Time Temp Pulse Resp B/P Pulse O2 O2 Flow FiO2 Ox Delivery Rate 04/11 0815 98.9 89 20 120/60 97 Room Air 03/ 2352 98.5 91 20 118/60 97 Room Air /04 2221 99 03/04 2221 99 118/60 03/04 1605 98.7 87 20 120/70 97 Intake & Output / 1600 /05 0800 03/05 0000 Intake Total 50 250 Output Total Balance 50 250 Intake, Oral 50 250 Physical Exam General Appearance: Alert, Oriented X3, Cooperative, No Acute Distress Skin: No Rashes, No Breakdown HEENT: Atraumatic, PERRLA Neck: Supple Cardiovascular: Regular Rate, Normal S1, Normal S2 Lungs: Normal air movement,bibasilar crackles Abdomen: Normal Bowel Sounds, Soft, No Tenderness Neurological: Normal Speech, Sensation Intact Extremities: Left knee swelling with increased warmth. Vascular: Pulses Symmetrical Current Medications: Current Medications Sig/Ethel Start time Last Medication Dose Route Stop Time Status Admin Acetaminophen 650 MG Q8P PRN 04/09 2230 AC 03/ PO 1450 Acetaminophen 1,000 MG Q8P PRN 04/09 2230 AC IV Atorvastatin Calcium 40 MG 1700 04/10 1700 AC 03/04 PO 1720 Carvedilol 25 MG BID 04/10 1000 AC 04/10 PO 2221 Cefazolin Sodium 500 MG Q12H 04/10 1500 DC 04/10 IV 1454 Heparin Sodium 5,000 UNIT Q8 04/10 0600 AC 04/11 (Porcine) SC 0532 Hydralazine HCl 25 MG BID 04/10 1000 AC 04/10 PO 2221 Insulin Aspart 0 TIDAC 04/10 0800 AC 04/10 SC 0836 Morphine Sulfate 1 MG Q12P PRN 04/09 2230 AC 04/09 IV 2242 Potassium Chloride 20 MEQ BID 04/10 1130 DC 03/ PO 04/11 1001 2222 Spironolactone 25 MG DAILY 04/10 1000 AC 04/10 PO 1057 Last 24 Hrs of Lab/Jonathan Results Last 24 Hrs of Labs/Mics: Laboratory Tests 04/11/16 0640: Anion Gap 10, Estimated GFR 27 L, BUN/Creatinine Ratio 30.0 H, CBC w Diff NO MAN DIFF REQ, RBC 3.55 L, MCV 83.5, MCH 27.5, RDW 14.8 H, MPV 8.1, Gran % 80.9 H, Lymphocytes % 10.8 L, Monocytes % 7.8, Eosinophils % 0.2, Basophils % 0.3, Absolute Granulocytes 7.2 H, Absolute Lymphocytes 1.0 L, Absolute Monocytes 0.7 H, Absolute Eosinophils 0, Absolute Basophils 0, PUBS MCHC 33.0 Orders Radiology Findings: CXR: IMPRESSION: No acute cardiopulmonary findings. Assessment/Plan Assessment: Ms. Gipson is a pleasant 81 year old female with PMH of HTN, DM type 2, CHF with EF of 20% from last echo and hyperlipidemia who presented with chief complain of left knee pain. Patient came from home to the ER yesterday for left knee pain, she was evaluated with venous Doppler and left knee x-ray which were significant for anterior soft tissue swelling and no DVT. From ER, patient was discharged to [facility] for difficulty on ambulation. Patient was sent back to ER again for fever of 101. Patient reported that her left knee pain worsenend and was associated with local tenderness. The knee pain worsened on ambulation or knee movement. As per patients Daughter, the pain started around 3 days ago Patient is admitted to the telemetry floor and the following is the management: Assessment and Plan #Right knee swelling * Patient initially started on IV cefazolin for likely septic arthritis, however she has been afebrile without leukocytosis and this has been discontinued * Consideration for bursitis * Tylenol for pain * Ortho consult for today, f/u rec's * PT eval for today, f/u recs #Elevated creatinine * Could be pre-renal as patient was not been eating and drinking well the day prior to coming to ER or this could be her new baseline as no prior cre is avaliable in last 3 months to compare with. * Will continue to monitor creatinine, continue IVF #Hypokalemia * 2.9 on admission * S/P repletion and K today is WNL to 4.1 * Repeat BEP in AM #CHF * Patient has EF of 15-20% from her previous echocardiograms, no evidence of CHF exacerbation at this point. * Will continue her coreg, hydralazine, spirinolactone and isosorbid mononitrate. #DM * WIll hold oral antidiabetic agents and start on novolog SS. * Accuchecks TIDAC/HS Patient is DNR/DNI DVT ppx SC heprin Problem List: 1. Hypokalemia 2. Acute on chronic renal failure 3. Left knee pain 4. Diabetes mellitus type 2 Pain Ratin Pain Location: Left knee with minimal movement Pain Goal: Pain 4 or less Pain Plan: TYLENOL PO, TORADOL, MORPHINE Tomorrow's Labs & Rationales: CBC (monitor for leukocytosis), BEP (monitor for hypokalemia Consulting Request: Consulting Specialty: Cardiology
--- NOTE | 2016-04-11 14:33 | RADIOLOGY REPORT ---
EXAMINATION: XR KNEE, LEFT CLINICAL INFORMATION: Pain and swelling COMPARISON: 04/08/2016 x-ray TECHNIQUE: Four views of the left knee were obtained. FINDINGS: There is no acute fracture or dislocation of left knee. Degenerative changes of left knee joint with tricompartmental osteophytosis and narrowing about the medial tibiofemoral joint space again noted. There is a moderate suprapatellar joint effusion. Anterior soft tissue thickening also noted. IMPRESSION: Anterior soft tissue swelling and moderate suprapatellar joint effusion. TOMMY.
[2016-04-11 15:30] VITALS: BP 136/60
--- NOTE | 2016-04-11 16:26 | Cons- Orthopedic ---
General Information and HPI Consulting Request Date of Consult: 04/11/16 Requested By: WAI SCHMIDT MD Reason for Consult: pain swelling left knee History of Present Illness: Patient is a 85-year-old female very poor historian who comes in today with some left knee pain difficulty with bending the knee although I could move her knee from 0 to about 95. She does have a mild to moderate effusion of the left knee. Mild increased temperature and no erythema no fevers. White count is 11 which is very close to the normal range. She cannot give any history as to any trauma to this knee no prior history of being treated for arthritis she doesn't recall whether or not she is ever taken an anti-inflammatory medication. She doesn't recall ever having her knee drained. Allergies/Medications Allergies: Coded Allergies: NO KNOWN ALLERGIES (01/01/13) Home Med List: Carvedilol (Coreg) 25 MG TABLET 1 TAB PO BID HEART (Reported) Furosemide 40 MG TABLET 1 TAB PO DAILY WATER PILL (Reported) Hydralazine HCl 25 MG TABLET 1 TAB PO BID BP (Reported) Isosorbide Mononitrate (Isosorbide Mononitrate ER) 60 MG TAB.ER.24H 1 TAB PO DAILY HEART (Reported) Metolazone 2.5 MG TABLET 1 TAB PO QTHURS WATER PILL (Reported) Simvastatin (Simvastatin*) 40 MG TABLET 1 TAB PO DAILY CHOLESTEROL (Reported) Sitagliptin Phosphate (Januvia) 25 MG TABLET 1 TAB PO DAILY DM (Reported) Spironolactone (Aldactone) 25 MG TABLET 1 TAB PO DAILY WATER PILL (Reported) Warfarin Sodium (Coumadin) 4 MG TABLET 1 TAB PO Q48 BLOOD THINNER (Reported) Past History Medical History Blood Transfusion Hx: No Neurological: DIABETIC NEROPATHY Cardiovascular: CHF, hypertension, hyperlipidemia, nonischemic cardiomyopathy with an LVEF of 15-20% LVEF of 15-20% hypertensive heart disease FALL HX Respiratory: NONE Gastrointestinal: NONE Hepatic: NONE Renal: chronic kidney disease Musculoskeletal: NONE Psychiatric: NONE Endocrine: diabetes Blood Disorders: NONE Cancer(s): SIgmoid Carcinoma, s/p Polypectomy Surgical History Pertinent Surgical History: non-contributory Family History Relations & Conditions If Any: FATHER (HTN). MOTHER (DM). BROTHER BROTHER (Lung Cancer). Relation not specified for: FH: diabetes mellitus FH: hypertension Psychosocial History Where Do You Live? Home Services at Home: None Smoking Status: Never Smoked Exam & Diagnostic Data Vital Signs and I&O Vital Signs Date Time Temp Pulse Resp B/P Pulse O2 O2 Flow FiO2 Ox Delivery Rate 04/11 1530 99.6 86 18 136/60 98 04/11 1049 89 120/60 04/11 1049 89 120/60 04/11 0815 98.9 89 20 120/60 97 Room Air 04/10 2352 98.5 91 20 118/60 97 Room Air 04/10 2221 99 04/10 2221 99 118/60 Intake & Output 04/11 1600 04/11 0800 04/11 0000 04/10 1600 04/10 0800 04/10 0000 Intake Total 480 50 250 715 120 Output Total 200 Balance 480 50 250 715 120 -200 Intake, IV 15 Intake, Oral 480 50 250 700 120 Output, Urine 200 Patient 168 lb Weight Physical Exam: On physical examination the left knee had a mild to moderate effusion no erythema she has some pain over the joint lines her x-rays while here at the hospital show some osteoarthritis of the knee more so over the medial compartment and patellofemoral compartment. She has ligaments are all intact to stress testing she had range of motion 0 to about 90 with some discomfort. The patient is a very poor historian and doesn't follow commands and has no great recall of any prior treatments regarding her legs. Physical Exam General Appearance: no apparent distress, awake, comfortable Extremities: normal inspection (left knee swelling ,ligaments ) Assessment/Plan Assessment/Plan Assessment this patient is probable osteoarthritis flareup on the left side she has no history of fevers no history of chills no puncture wounds and no other source of any infection. So my assessment would be osteoarthritic flareup plan at this point in time as the leg was aspirated the bedside with the lpn medical assistant in presence the appropriate fluid will be sent for culture gram stain crystals and cell count. I did instill Celestone into the knee after I had withdrawn and the fluid patient tolerated procedure well the knee will be iced over the next day every 4-6 hours for 15 minutes she may ambulate weightbearing as tolerated and we will follow-up on the laboratory values regarding her fluid. Consult Acknowledgment - Thank you for your consult request. Attending MD Review Statement Attending Statement Attending MD Statement: examined this patient
[2016-04-11 22:26] VITALS: BP 138/70
--- NOTE | 2016-04-12 08:03 | PN- Housestaff ---
See Addendum Subjective Follow-up For: knee pain hypokalemia Tele-Events Since Last Visit: SR 72- Subjective: Pt seen this morning, she denied bilateral knee pain, however ROM limited on passive and active motion on both knees, only limited to about 30 degrees, due to pain, which according to the patient is her baseline. She thinks she was given tylenol for pain at the facility, and do not think she was receiving nsaids such as ibuprofen. kidney functions has improved to baseline. potassium has improved. likely discharge to [facility] today. she has been afebrile with no white count. knee aspiration done and gram stain pending and no growth to date. Review of Systems Constitutional: Denies: chills, fever. Cardiovascular: Denies: chest pain. Respiratory: Denies: cough, short of breath. Gastrointestinal: Denies: abdominal pain. Genitourinary: Denies: dysuria. Objective Last 24 Hrs of Vital Signs/I&O Vital Signs Date Time Temp Pulse Resp B/P Pulse O2 O2 Flow FiO2 Ox Delivery Rate 04/11 2225 98.7 85 22 138/70 95 Room Air 04/11 2053 85 138/70 04/11 2053 85 138/70 04/11 1530 99.6 86 18 136/60 98 04/11 1049 89 120/60 04/11 1049 89 120/60 Intake & Output 04/12 1600 04/12 0800 04/12 0000 Intake Total 120 240 Output Total 250 Balance -130 240 Intake, Oral 120 240 Output, Urine 250 Physical Exam General Appearance: Alert, Oriented X3, Cooperative, No Acute Distress Skin: No Significant Lesion HEENT: Atraumatic Cardiovascular: Regular Rate, Normal S1, Normal S2, No Murmurs Lungs: Clear to Auscultation, Normal Air Movement Abdomen: Normal Bowel Sounds, Soft, No Tenderness Extremities: both knees appear swollen athough nontender. rom limited to 30 degrees knee flexion bilaterally due to pain (active and passive ROM) Vascular: Normal Pulses Current Medications: Current Medications Sig/Ethel Start time Last Medication Dose Route Stop Time Status Admin Acetaminophen 650 MG .STK-MED ONE 04/12 1951 DC PO 04/11 1952 Acetaminophen 650 MG Q8P PRN 04/09 2229 AC 04/11 PO 1957 Acetaminophen 1,000 MG Q8P PRN 04/09 2229 AC IV Atorvastatin Calcium 40 MG 1700 04/10 1700 AC 04/11 PO 1808 Betamethasone Sodium 30 MG SEE ADMIN CRITERIA.. 04/11 1545 DC 04/11 Phosphate IA 04/11 1546 1559 Carvedilol 25 MG BID 04/10 1000 AC 04/11 PO 2054 Heparin Sodium 5,000 UNIT Q8 04/10 0600 AC 04/12 (Porcine) SC 0531 Hydralazine HCl 25 MG BID 04/10 1000 AC 04/11 PO 205 Insulin Aspart 0 TIDAC 04/10 0800 AC 04/11 SC 1808 Lidocaine 5 ML ONCE ONE 04/11 1515 DC 04/11 SC 04/11 1516 1558 Morphine Sulfate 1 MG Q12P PRN 04/09 2230 AC 04/09 IV 2242 Potassium Chloride 20 MEQ BID 04/10 1130 DC 04/11 PO 04/11 1001 1049 Spironolactone 25 MG DAILY 04/10 1000 AC 04/11 PO 1049 Triamcinolone 40 MG SEE ADMIN CRITERIA 04/11 1515 CAN Acetonide IA Last 24 Hrs of Lab/Jonathan Results Last 24 Hrs of Labs/Mics: Laboratory Tests 04/12/16 0655: Anion Gap 14, Estimated GFR 27 L, BUN/Creatinine Ratio 29.4 H, CBC w Diff NO MAN DIFF REQ, RBC 3.58 L, MCV 83.3, MCH 27.9, RDW 15.2 H, MPV 8.1, Gran % 90.6 H, Lymphocytes % 7.3 L, Monocytes % 2.0, Eosinophils % 0, Basophils % 0.1, Absolute Granulocytes 8.5 H, Absolute Lymphocytes 0.7 L, Absolute Monocytes 0.2, Absolute Eosinophils 0, Absolute Basophils 0, PUBS MCHC 33.4 04/11/16 1600: Lymphocytes 3, % Normal PMNs 97, Fluid Glucose 180 Microbiology 04/11 1600 BODY FLUID: Body Fluid Culture - RES 04/12 1599 BODY FLUID: Gram Stain - RES Assessment/Plan Assessment: Ms. Gipson is a pleasant 81 year old female with PMH of HTN, DM type 2, CHF with EF of 20% from last echo and hyperlipidemia who presented with chief complain of left knee pain. Patient came from home to the ER yesterday for left knee pain, she was evaluated with venous Doppler and left knee x-ray which were significant for anterior soft tissue swelling and no DVT. From ER, patient was discharged to [facility] for difficulty on ambulation. Patient was sent back to ER again for fever of 101. Patient reported that her left knee pain worsenend and was associated with local tenderness. The knee pain worsened on ambulation or knee movement. As per patients Daughter, the pain started around 3 days ago Patient is admitted to the telemetry floor and the following is the management: Assessment and Plan #Right knee swelling most likely due bursitis * Patient initially started on IV cefazolin for likely septic arthritis, however she has been afebrile without leukocytosis and this has been discontinued * Tylenol for pain * Ortho consult placed, aspiration done, NGTD, fluid glucose 180 * PT eval, f/u recs to [facility] #Elevated creatinine improved to baseline - Most likely due to pre-renal as patient was not been eating and drinking well the day prior to coming to ER or this could be her new baseline as no prior cre is avaliable in last 3 months to compare with. * Will continue to monitor creatinine #Hypokalemia * 2.9 on admission * S/P repletion and K improved * Follow K level #CHF * Patient has EF of 15-20% from her previous echocardiograms, no evidence of CHF exacerbation at this point. * Will continue her coreg, hydralazine, spirinolactone and isosorbid mononitrate. #DM * WIll hold oral antidiabetic agents and start on novolog SS. * Accuchecks TIDAC/HS Diet: CC 2 DVT ppx SC heparin DNR/DNI Problem List: 1. Hypokalemia 2. Left knee pain Pain Ratin Pain Location: none Pain Goal: Remain pain free Pain Plan: tylenol Tomorrow's Labs & Rationales: bep for hypokalemia and nasreen DVT/Prophylaxis: mechanical, pharmacological Consulting Request: Consulting Specialty: Cardiology
--- NOTE | 2016-04-12 08:18 | Discharge Summary ---
See Addendum Visit Information Visit Dates Admission Date: 04/09/16 Discharge Date: 04/12/16 Hospital Course Course Attending Physician: Dr. Gonzalez Primary Care Physician: AMERICA GARBER,DAGO [place] Consulting Request: Consulting Specialty: Orthopedics Hospital Course: This is an 85-year-old lady with past medical history significant for CHF, hypertension, hyperlipidemia, nonischemic cardiomyopathy ejection fraction 15-20 % (in 2014), CKD, NIDDM, Sigmoid Carcinoma s/p polypectomy, frequent falls, history of DVT who presented to the hospital for evaluation of fever and left knee pain. Patient was seen in the [facility] with complaints of left leg/knee pain for the past week with inability to ambulate secondary to pain. She was discharged back to [facility] after adequate pain control was acheived for further rehabilitation. Xray of the knee demonstrated mild tricompartmental degenerative changes with anterior soft tissue swelling. Doppler was negative for DVT. She normally ambulates with a cane, but has been using a walker. Vital signs on admission: Vital Signs Date Time Temp Pulse Resp B/P Pulse O2 O2 Flow FiO2 Ox Delivery Rate 04/09 1950 98 Room Air 04/09 1945 98.6 97 18 149/73 98 Room Air Pertinent physical exam at the time of admission:eneral Appearance Alert, Cooperative, No Acute Distress Skin No Rashes, No Breakdown, No Significant Lesion HEENT Atraumatic, PERRLA, EOMI, Mucous Membr. moist/pink Neck Supple Cardiovascular Regular Rate, Normal S1, Normal S2, No Murmurs Lungs Minimal bibasilar crackles Abdomen Normal Bowel Sounds, Soft, No Tenderness, No Hepatospenomegaly, No Masses Neurological Normal Speech, Normal Tone, Cranial Nerves 3-12 NL Extremities No Clubbing, No Cyanosis, Normal Pulses, Warm left tender swollen knee without obvious erythema or rash or recent injury Vascular Normal Pulses, Pulses Symmetrical Pertinent lab and diagnostic data on admission: Laboratory Tests 04/09/162004: Anion Gap 16, Estimated GFR 18 L, BUN/Creatinine Ratio 25.6 H, Glucose 158 H, Calcium 8.8, Total Bilirubin 0.6, AST 48 H, ALT 35, Alkaline Phosphatase 118, Troponin I Pending, [id number] Pept Pending, Total Protein 6.9, Albumin 3.3 L, Globulin 3.6, Albumin/Globulin Ratio 0.9 L, PT Pending, INR Pending, CBC w Diff NO MAN DIFF REQ, RBC 3.95 L, MCV 82.3, MCH 27.5, RDW 14.3, MPV 7.1 L, Gran % 75.8 H, Lymphocytes % 13.0 L, Monocytes % 10.6 H, Eosinophils % 0, Basophils % 0.6, Absolute Granulocytes 8.4 H, Absolute Lymphocytes 1.4, Absolute Monocytes 1.2 H, Absolute Eosinophils 0, Absolute Basophils 0.1, PUBS MCHC 33.4 04/09/162002: Urinalysis LIGHT H, Urine Color YEL, Urine Clarity HAZY H, Urine pH 6.0, Ur Specific [place] 1.020, Urine Protein 100 H, Urine Ketones NEG, Urine Nitrite NEG, Urine Bilirubin NEG, Urine Urobilinogen 0.2, Ur Leukocyte Esterase NEG, Ur Microscopic SEDIMENT EXAMINED, Urine RBC 5-10 H, Urine WBC 1-3 H, Ur Epithelial Cells RARE, Urine Hemoglobin SMALL H, Urine Glucose NEG Diagnostic Data EKG Results: NSR, HR 91, AK 224, QTc 368, PVC with 1st degree AVB Rapid flu negative. Blood cultures NGTD. The patient was admitted to telemetry monitored service. The following problems were addressed during the course of her hospital stay: #Left knee swelling; most likely secondary to osteoarthritic flareup Patient initially received IV cefazolin for likely septic arthritis. Orthopedic surgery was consulted. Left Leg was aspirated by orthopedic surgery and fluid was sent for culture and Gram stain, crystals and cell count. Per orthopedic surgery, most likely secondary to osteoarthritic flareup; IV steroid was injected into the left knee. IV antibiotic was discontinued. Fluid Cultures: NGTD. fluid glucose 180, WBC moderate. Her pain was adequately controlled with when necessary Tylenol. Afebrile with stable vital signs on the day of discharge. #Elevated creatinine: Baseline creatinine 1.9 as of July 2015. Creatinine on initial evaluation 2.5. I'll see her if it MARIOLA or worsening of CKD. Patient received 1 L D5 NS with potassium in ER. Metolazone and Lasix were held on admission. Patient was on strict I's and O's. Repeat creatinine improved to 1.8. Home medication of Lasix was resumed. #Hypokalemia: The patient had a potassium level of 2.9 on admission which was adequately repleted with IV and by mouth potassium supplement. Today's potassium level is 4.9 #CHF Patient has EF of 15-20% from her previous echocardiograms, no evidence of CHF exacerbation at this point. She was maintained on her home dose of coreg, hydralazine, spirinolactone and isosorbid mononitrate. #DM The patient was maintained on diabetic diet with sodium restriction. Oral diabetic medications were held on admission. She was maintained on insulin sliding scale. Blood glucose levels were monitored closely. Ranging in 140s- 200s. #DVT Prophylaxis: Subcutaneous heparin. #CODE STATUS: DNR/DNI Allergies: Coded Allergies: NO KNOWN ALLERGIES (01/01/13) Pertinent Lab Results: Laboratory Tests 04/12 03 0655 1600 Chemistry Sodium (137 - 145 mmol/L) 148 H Potassium (3.5 - 5.1 mmol/L) 4.9 Chloride (98 - 107 mmol/L) 110 H Carbon Dioxide (22 - 30 mmol/L) 25 Anion Gap (5 - 16) 14 BUN (7 - 17 mg/dL) 53 H Creatinine (0.5 - 1.0 mg/dL) 1.8 H Estimated GFR (>60 ml/min) 27 L BUN/Creatinine Ratio (7 - 25 %) 29.4 H Hematology CBC w Diff NO MAN DIFF REQ WBC (4.8 - 10.8 /CUMM) 9.4 RBC (4.20 - 5.40 /CUMM) 3.58 L Hgb (12.0 - 16.0 G/DL) 10.0 L Hct (37 - 47 %) 29.8 L MCV (81.0 - 99.0 FL) 83.3 MCH (27.0 - 31.0 PG) 27.9 RDW (11.5 - 14.5 %) 15.2 H Plt Count (130 - 400 /CUMM) 190 MPV (7.4 - 10.4 FL) 8.1 Gran % (42.2 - 75.2 %) 90.6 H Lymphocytes % (20.5 - 51.1 %) 7.3 L Monocytes % (1.7 - 9.3 %) 2.0 Eosinophils % (0 - 5 %) 0 Basophils % (0.0 - 2.0 %) 0.1 Absolute Granulocytes (1.4 - 6.5 /CUMM) 8.5 H Absolute Lymphocytes (1.2 - 3.4 /CUMM) 0.7 L Lymphocytes (%) 3 Absolute Monocytes (0.10 - 0.60 /CUMM) 0.2 Absolute Eosinophils (0.0 - 0.7 /CUMM) 0 Absolute Basophils (0.0 - 0.2 /CUMM) 0 % Normal PMNs (%) 97 PUBS MCHC (33.0 - 37.0 G/DL) 33.4 Other Body Source Fluid Glucose (mg/dL) 180 Urines Sodium Urate Crystals (NONE) Disposition Summary Disposition Principal Diagnosis: Left knee swelling; likely Osteoarthritic flareup Additional Diagnosis: Elevated creatinine Hypokalemia Discharge Disposition: SNF Discharge Instructions General Discharge Information Code Status: Do Not Resucitate/Intubat Patient's Diet: Diabetes/cardiac diet Patient's Activity: As tolerated Follow-Up Instructions/Appts: -Please follow up with PCP in 1 week. -Please follow-up with orthopedic surgery within a week of discharge. -Please avoid taking NSAIDs such as ibuprofen. -Please follow potassium and kidney functions. -Final left knee joint aspiration culture results needs to be followed; so far negative after one day. Medications at Discharge Discharge Medications: Continue taking these medications: Simvastatin (Simvastatin*) 40 MG TABLET 1 Tablet ORAL DAILY Sitagliptin Phosphate (Januvia) 25 MG TABLET 1 Tablet ORAL DAILY Carvedilol (Coreg) 25 MG TABLET 1 Tablet ORAL TWICE DAILY Spironolactone (Aldactone) 25 MG TABLET 1 Tablet ORAL DAILY Furosemide (Furosemide) 40 MG TABLET 1 Tablet ORAL DAILY Qty = 90 Isosorbide Mononitrate (Isosorbide Mononitrate ER) 60 MG TAB.ER.24H 1 Tablet ORAL DAILY Qty = 30 Metolazone (Metolazone) 2.5 MG TABLET 1 Tablet ORAL EVERY TUESDAY Qty = 12 Hydralazine HCl (Hydralazine HCl) 25 MG TABLET 1 Tablet ORAL TWICE DAILY Start taking the following new medications: Acetaminophen (Tylenol) 325 MG TABLET 650 Milligram ORAL EVERY 8 HOURS NEEDED as needed for PAIN (knee) Qty = 30 No Refills Copies To: AMERICA GARBER,DAGO [place]; MARIIA GARBER,ZACHERY Rivera
[2016-04-12 08:25] VITALS: BP 134/76
--- NOTE | 2016-04-12 08:30 | Patient Discharge Instructions ---
Discharge Instructions General Discharge Information You were seen/treated for: Osteoarthritic flareup Hypokalemia Special Instructions: - Please follow up with PCP in 1 week. - Please follow-up with orthopedic surgery within a week of discharge. - Please avoid taking NSAIDs such as ibuprofen. - Please follow potassium and kidney functions. - Please follow up results from knee aspiration Diet Continue normal diet: Yes Recommended Diet: Diabetic, Heart Healthy Activity Full Activity/No Limits: Yes Acute Coronary Syndrome Inclusion Criteria At DC or during hospital stay patient has or had the following: ACS DIAGNOSIS No Discharge Core Measures Meds if any: Prescribed or Continued at Discharge Meds if any: NOT Prescribed or Continued at Discharge Congestive Heart Failure Inclusion Criteria At DC or during hospital stay patient has or had the following: CHF DIAGNOSIS No Discharge Core Measures Meds if any: Prescribed or Continued at Discharge Meds if any: NOT Prescribed or Continued at Discharge Cerebrovascular accident Inclusion Criteria At DC or during hospital stay patient has or had the following: CVA/TIA Diagnosis No Discharge Core Measures Meds if any: Prescribed or Continued at Discharge Meds if any: NOT Prescribed or Continued at Discharge Venous thromboembolism Inclusion Criteria VTE Diagnosis No VTE Type NONE VTE Confirmed by (Test) NONE Discharge Core Measures - Per Current guidelines, there needs to be overlap - treatment for the first 5 days of Warfarin therapy. - If discharged on Warfarin prior to 5 days of - overlap therapy, the patient will need to be - assessed for post discharge needs including - *Post discharge parental anticoagulation - *Warfarin and/or parental anticoagulation education - *Follow up date to check INR post discharge At least 5 days overlap therapy as Inpatient No Meds if any: Prescribed or Continued at Discharge Note: Overlap Therapy is Warfarin and Anticoagulant Meds if any: NOT Prescribed or Continued at Discharge
[2016-04-12 08:54] LABS: ABSOLUTE BASOPHIL COUNT 0 /CUMM (0.0-0.2); ABSOLUTE EOSINOPHIL COUNT 0 /CUMM (0.0-0.7); ABSOLUTE GRANULOCYTE CT 8.5 /CUMM (1.4-6.5); ABSOLUTE LYMPH COUNT 0.7 /CUMM (1.2-3.4); ABSOLUTE MONOCYTE COUNT 0.2 /CUMM (0.10-0.60); BASOPHIL % 0.1 % (0.0-2.0); EOSINOPHIL % 0 % (0-5); HEMATOCRIT 29.8 % (37-47); MEAN CORPUSCULAR HGB 27.9 PG (27.0-31.0); MEAN CORPUSCULAR HGB CONC 33.4 G/DL (33.0-37.0); MEAN CORPUSCULAR VOLUME 83.3 FL (81.0-99.0); MEAN PLATELET VOLUME 8.1 FL (7.4-10.4); PLATELET COUNT 190 /CUMM (130-400); RBC DISTRIBUTION WIDTH 15.2 % (11.5-14.5); RED BLOOD CELL CT 3.58 /CUMM (4.20-5.40); WHITE BLOOD CELL COUNT 9.4 /CUMM (4.8-10.8)
[2016-04-12 09:34] LABS: GRANULOCYTE % 90.6 % (42.2-75.2)
[2016-04-12 14:20] VITALS: BP 134/76
[2016-04-12] MEDS ORDERED: TYLENOL325 M1 PO (14:35)
== END 2016-04-12 15:30 | DRG 554 ==
LOC: ENRESERVDT → ENRESERVTM → ERH 19:42 → ERHI 20:44 → 1NO 20:44 → ENPENDDIS 20:44 → 1NO 22:20
PROVIDERS: Internal Medicine; Pediatrics; Radiology Diagnostic Radiology; Student in an Organized Health Care Education/Training Program; ADMIT Internal Medicine
PROC: 0S9D3ZX Drainage of Left Knee Joint, Percutaneous Approach, Diagnostic (ICD-10-PCS; principal; 2016-04-11)
PROC: 3E0U33Z Introduction of Anti-inflammatory into Joints, Percutaneous Approach (ICD-10-PCS; principal; 2016-04-11)
DX: M17.12 Unilateral primary osteoarthritis, left knee (principal); N17.9 Acute kidney failure, unspecified; I42.9 Cardiomyopathy, unspecified; I13.0 Hypertensive heart and chronic kidney disease with heart failure and stage 1 through stage 4 chronic kidney disease, or unspecified chronic kidney disease; I50.22 Chronic systolic (congestive) heart failure; M25.462 Effusion, left knee; E87.6 Hypokalemia; E78.5 Hyperlipidemia, unspecified; N18.9 Chronic kidney disease, unspecified; E11.22 Type 2 diabetes mellitus with diabetic chronic kidney disease; Z79.84 Long term (current) use of oral hypoglycemic drugs; Z85.038 Personal history of other malignant neoplasm of large intestine
CPT/HCPCS: 1NSP; 87075; 36415; 73562-LT; 81001; 82436; 87040; 87804; 87804-59; 88305; 89060; 93005; 93010; 96374; 97162-GP; 97530-GO; J0690; J0702; J1644; J7042

== ENCOUNTER 2016-04-16 10:21 | Inpatient (IN) | payer OTHER ==
[~2016-04-16] VITALS: Ht 157.5 cm; Wt 76.2 kg
[~2016-04-16 10:21] MED LIST changes: +TYLENOL325 M1 PO
--- NOTE | 2016-04-16 10:22 | ED GENERAL ADULT ---
History of Present Illness General Chief Complaint: General Adult Stated Complaint: BIBA WEAKNESS Source: patient Exam Limitations: no limitations Vital Signs & Intake/Output Vital Signs & Intake/Output Vital Signs Date Time Temp Pulse Resp B/P Pulse O2 O2 Flow FiO2 Ox Delivery Rate 04/16 1907 Room Air 04/16 1836 88 20 134/62 97 Room Air 04/16 1654 96.4 77 18 114/59 98 Room Air 04/16 1509 97.3 70 20 111/58 98 Room Air 04/16 1025 97.9 82 20 133/63 98 Room Air Allergies Coded Allergies: NO KNOWN ALLERGIES (01/01/13) Reconcile Medications Carvedilol (Coreg) 25 MG TABLET 1 TAB PO BID HEART (Reported) Furosemide 40 MG TABLET 1 TAB PO DAILY WATER PILL (Reported) Hydralazine HCl 25 MG TABLET 1 TAB PO BID BP (Reported) Isosorbide Mononitrate (Isosorbide Mononitrate ER) 60 MG TAB.ER.24H 1 TAB PO DAILY HEART (Reported) Metolazone 2.5 MG TABLET 1 TAB PO QTHURS WATER PILL (Reported) Simvastatin (Simvastatin*) 40 MG TABLET 1 TAB PO DAILY CHOLESTEROL (Reported) Sitagliptin Phosphate (Januvia) 25 MG TABLET 1 TAB PO DAILY DM (Reported) Spironolactone (Aldactone) 25 MG TABLET 1 TAB PO DAILY WATER PILL (Reported) Triage Nurses Notes Reviewed? yes Onset: Abrupt Duration: unknown duration Timing: unknown Severity: moderate HPI: 04/16/16 85-year-old female who presents to the emergency department for left-sided weakness and left knee pain. According to the [facility] care facility staff the patient has a history of ongoing left knee pain. This morning however upon waking they noticed that she had weakness to the left arm and left leg. She was last seen normal last night. In the emergency department for severe left knee pain. No history of trauma. She has had this pain for approximately the past 2 weeks. She has decreased range of motion to the left knee. 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 She has a gag reflex. She tolerates water. Past History Medical History Any Pertinent Medical History? 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 MOTHER (DM). BROTHER BROTHER (Lung Cancer). Relation not specified for: FH: diabetes mellitus FH: hypertension Hx Contributory? No Review of Systems Review of Systems Constitutional: Denies: fever. EENTM: Denies: visual changes. Respiratory: Denies: short of breath. Cardiovascular: Denies: chest pain. GI: Denies: abdominal pain. Genitourinary: Reports: no symptoms. Musculoskeletal: Reports: joint pain. Skin: Denies: rash. Neurological/Psychological: Reports: confusion, weakness. Hematologic/Endocrine: Denies: bleeding. Physical Exam Physical Exam General Appearance: alert, awake, anxious, mild distress Head: atraumatic, normal appearance Eyes: Bilateral: normal appearance, PERRL, EOMI. Ears, Nose, Throat: normal pharynx, normal ENT inspection Neck: normal inspection, supple Respiratory: no respiratory distress Cardiovascular: regular rate/rhythm Peripheral Pulses: 4+ radial (R), 4+ radial (L) Gastrointestinal: non-tender Back: decreased range of motion Extremities: swelling, tenderness, left knee Neurologic/Psych: awake, alert, motor weakness (left upper and lower extremity) Skin: intact, normal color, warm/dry Core Measures ACS in differential dx? No CVA/TIA Diagnosis: Yes NIH Stroke Scale: Total 9 Dt/Tm Last Known Well: No Date Last Known Well: 04/15/16 Symptom start date: 04/16/16 Reason tPA not ordered: Medical Contraindication Severe Sepsis Present: No Septic Shock Present: No Progress Differential Diagnoses I considered the following diagnoses in my evaluation of the patient: [CVA, TIA, ARTHRITIS] Plan of Care: Orders Procedure Date/time Status Heart Healthy Diet 04/16 D Active Nothing by Mouth 04/16 B Complete TROPONIN LEVEL 04/16 2330 Active EKG 04/16 2329 Active Turn and Reposition 04/16 191 Active Skin Integrity Protocol 04/16 191 Active RT: Evaluation 04/16 1906 Active Vital Signs 04/16 1849 Active Teach/Educate 04/16 184 Active Pain Treatment and Response 04/16 184 Active Nutritional Intake, Monitor 04/16 184 Active Isolation 04/16 1849 Active Intake & Output 04/16 184 Active Patient Care Conference 04/16 1849 Active Activity/Ambulation 04/16 184 Active Code Status 04/16 1827 Active URINALYSIS 04/16 1804 Active PROTHROMBIN TIME 04/16 1731 Active TROPONIN LEVEL 04/16 1730 Complete EKG 04/16 1730 Active Admit to inpatient 04/16 1554 Active Vital Signs 04/16 1554 Complete TRC EVALUATION (GEN) 04/16 1539 Complete OXYGEN SETUP (GEN) 04/16 1539 Active PT Evaluate & Treat 04/16 1539 Active Pathway - chart 04/16 1539 Active House Staff 04/16 1539 Active Patient Data 04/16 1539 Active Patient Data 04/16 1533 Active THYROID STIMULATING HORMONE 04/16 1136 Active MAGNESIUM 04/16 1136 Active GLYCOSYLATED HGB 04/16 1136 Active FREE T4 04/16 1136 Active WESTERGREN SED RATE 04/16 1136 Complete C-REACTIVE PROTEIN 04/16 1136 Active TROPONIN LEVEL 04/16 1133 Active COMPREHENSIVE METABOLIC PANEL 04/16 1133 Active CBC WITHOUT DIFFERENTIAL 04/16 1133 Complete [id number] DOPPLER 04/16 UNK Active SWALLOW EVALUATION 04/16 UNK Active Evaluate Swallowing 04/16 UNK Complete THERAPIST ORDERS 04/16 UNK Complete Lab Add-on Test 04/16 UNK Active Occupational Tx Eval & Treat 04/16 UNK Active VTE Mechanical Prophylaxis 04/16 UNK Active Vital Signs 04/16 UNK Active MISTAKE 04/16 UNK Active Telemetry/[employer] Fitness Instructor 04/16 UNK Active Intake & Output 04/16 UNK Active Hemoccult 04/16 UNK Active FingerStick- Glucose 04/16 UNK Active CMS- Neurovascular Checks 04/16 UNK Active PHYSICIAN CONSULT 04/16 UNK Active ECHOCARDIOGRAM 04/16 UNK Active Current Medications Sig/Ethel Start time Last Medication Dose Stop Time Status Admin Aspirin 325 MG DAILY 04/17 1000 AC (Aspirin) Insulin Aspart 0 TIDAC 04/17 0800 AC (NovoLOG) Carvedilol 25 MG BID 03/10 2200 AC (Coreg) Heparin Sodium 5,000 UNIT Q8 04/16 2199 AC (Porcine) Hydralazine HCl 25 MG BID 04/16 2199 AC (Apresoline) Oxycodone/ 1 TAB Q6P PRN 04/17 1999 AC Acetaminophen (Percocet) Spironolactone 25 MG DAILY 04/16 1946 AC (Aldactone) Furosemide 40 MG DAILY 04/16 1945 AC (Lasix) Isosorbide 60 MG DAILY 04/16 1945 AC Mononitrate (Imdur) Atorvastatin Calcium 80 MG 0 04/16 1699 AC (Lipitor) Laboratory Tests 04/16/16 1705: Troponin I < 0.01 04/16/16 1136: Anion Gap 13, Estimated GFR 27 L, BUN/Creatinine Ratio 32.8 H, Glucose 148 H, Hemoglobin A1c Pending, Calcium 8.8, Magnesium 2.2, Total Bilirubin 0.4, AST 17, ALT 35, Alkaline Phosphatase 110, Troponin I < 0.01, C-Reactive Prot, Quant 8.5 H, Total Protein 6.5, Albumin 3.0 L, Globulin 3.5, Albumin/Globulin Ratio 0.9 L, TSH 1.260, Free T4 2.02 H, CBC w Diff NO MAN DIFF REQ, RBC 3.56 L, MCV 82.5 , MCH 27.4, RDW 15.0 H, MPV 6.9 L, Gran % 80.4 H, Lymphocytes % 10.6 L, Monocytes % 8.5, Eosinophils % 0.5, Basophils % 0 L, Absolute Granulocytes 9.1 H, Absolute Lymphocytes 1.2, Absolute Monocytes 1.0 H, Absolute Eosinophils 0.1 , Absolute Basophils 0, PUBS MCHC 33.2, ESR Westergren 81 H Initial ED EKG: no ischemic changes Comments: Head CT no acute changes. X-ray the left knee shows arthritis. MRI of the head was ordered. Departure Departure Disposition: STILL A PATIENT Condition: Stable Clinical Impression Primary Impression: CVA (cerebral vascular accident) Secondary Impressions: Arthritis Referrals: AMERICA GARBER,DAGO [place] (PCP/Family) Departure Forms: Customer Survey General Discharge Information Comments 04/16/16 4 PM The patient was seen and evaluated by the hospitalist who had Recently admitted the patient, he does notice that there is a change in her exam. She is not moving the left arm which is a new finding. Her mental status is essentially the same, the failure to move the left leg has been an ongoing issue secondary to pain. She is therefore being admitted to the telemetry service to rule out TIA vs CVA. It is unclear the onset from which the symptoms occurred. MRI has been ordered. Consider Neurology consult. Admission Note Spoke With: HERIBERTO VIERA MD Documentation of Exam: Documentation of any treatments & extenuating circumstances including Concerns Regarding Discharge (functional status, medication knowledge or non-compliance, living conditions, etc.) that warrant an admission rather than observation: [The patient needs admission for telemetry monitoring, inpatient MRI, neuro checks every] Critical Care Note Critical Care Note Critical Care Time: 30-74 min
--- NOTE | 2016-04-16 11:32 | CT SCAN REPORT ---
EXAMINATION: CT HEAD WITHOUT CONTRAST CLINICAL INFORMATION: 85-year-old woman with left-sided weakness. COMPARISON: Head CT 06/12/2014 TECHNIQUE: 2.[address] slices were obtained from the skull base to the vertex. No intravenous contrast was administered. 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 In the anteromedial left frontal lobe, there is what appears to be a prominent sulcus. No definite new acute infarct or hemorrhage is seen. No intra-axial or extra-axial fluid collections are seen. There is mild brain atrophy. Except for atrophy, the brain stem and cerebellum are grossly unremarkable. No fractures or concerning osseous lesions are seen. The orbits and globes are normal. The sinuses and mastoid air cells are clear. The scalp and superficial soft tissues are unremarkable. There is overall no significant change from the prior exam. IMPRESSION: No acute findings. No significant interval change.
[2016-04-16 11:50] LABS: ABSOLUTE BASOPHIL COUNT 0 /CUMM (0.0-0.2); ABSOLUTE EOSINOPHIL COUNT 0.1 /CUMM (0.0-0.7); ABSOLUTE GRANULOCYTE CT 9.1 /CUMM (1.4-6.5); ABSOLUTE LYMPH COUNT 1.2 /CUMM (1.2-3.4); BASOPHIL % 0 % (0.0-2.0); EOSINOPHIL % 0.5 % (0-5); GRANULOCYTE % 80.4 % (42.2-75.2); HEMATOCRIT 29.4 % (37-47); MEAN CORPUSCULAR HGB 27.4 PG (27.0-31.0); MEAN CORPUSCULAR HGB CONC 33.2 G/DL (33.0-37.0); MEAN CORPUSCULAR VOLUME 82.5 FL (81.0-99.0); MEAN PLATELET VOLUME 6.9 FL (7.4-10.4); PLATELET COUNT 259 /CUMM (130-400); RED BLOOD CELL CT 3.56 /CUMM (4.20-5.40); WHITE BLOOD CELL COUNT 11.3 /CUMM (4.8-10.8)
--- NOTE | 2016-04-16 13:08 | RADIOLOGY REPORT ---
EXAMINATION: XR KNEE, LEFT CLINICAL INFORMATION: Left knee pain. COMPARISON: Left knee films from 04/11/2016. TECHNIQUE: Four views of the left knee. FINDINGS: The previously seen moderate sized suprapatellar knee joint effusion has nearly completely resolved with only a trace amount of effusion remaining. Similarly, the prepatellar soft tissue swelling has decreased. Diffuse osteopenia is present with mild spurring in the medial and lateral femoral compartments, the intercondylar notch and tibial spines and patella, consistent with mild degenerative changes. Mild loss in joint space height in the medial and patellofemoral compartment is again noted. No soft tissue calcifications are seen. No acute fracture or dislocation is present. IMPRESSION: 1. Near complete resolution of previously seen suprapatellar knee joint effusion. 2. Decreasing prepatellar soft tissue swelling. 3. Mild tricompartmental degenerative changes again noted. 4. Osteopenia. No acute fracture.
--- NOTE | 2016-04-16 15:40 | History & Physical ---
RACHELLE ERICKSON MD 04/16/16 1540: General Information and HPI MD Statement: I have seen and personally examined SHIRA BUCKNER and documented this H&P. The patient is a 85 year old F who presented with a patient stated chief complaint of [left sided weakness]. Source of Information: patient, family, W10, called [facility] and spoke to covering nurse Exam Limitations: no limitations History of Present Illness: 85-year-old lady with PMH significant for CHF, nonischemic cardiomyopathy ejection fraction 15-20% (in 2014), hypertension, hyperlipidemia, CKD, NIDDM, sigmoid Carcinoma s/p polypectomy, frequent falls, DVT now off coumadin, presented for left sided weakness and speech difficulty noticed since 730am on . I spoke to the covering nurse at [facility], who stated that, as per the nursing note, pt's weakness was noticed while she was in the dining room this morning. She was found to be leaning towards the left. She was then brought back to her bed, and they noted that her left arm was flaccid. However, she was able to move her left lower extremity. She also was not able to communicate appropriately, unclear about the specifics of it. Pt presented to the ED around 1045am. As per ED note, no facial droop was noted and pt able to answer simple questions correctly and speech is clear. I last saw the patient on 04/12/16, the day she was discharged from [facility] for generalized weakness most likely due to hypokalemia and left knee pain due to bursiitis. At that time, no focal neurological deficits were found on my exam. When we evaluated the patient today, she was a little slow to answer questions and stutters her answers intermittently (which is her baseline, as confirmed by her daughter who was present at bedside). She followed commands, and answered questions appropriately. However, there was noticable weakness of both her left arm (2/5) and leg (3/5), compared to her right arm (4/5) and leg (4+/5). She passed swallow evaluation with the house staff. She also passed formal swallow evaluation with speech therapy. She complains of twitches of both lower extremities (initially left, then right) , that is new. She currently does not complain of knee pain, however she was given pain meds in the ED. Of note, pt was on warfarin in 2014 for DVT (reportedly found incidentally in the abdomen), and has since been off the warfarin. No history of abnormal heart rhythm, however she did have cardiomyopathy and was offered AICD?, however did not pursue it. 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 Allergies/Medications Allergies: Coded Allergies: NO KNOWN ALLERGIES (01/01/13) Home Med list Carvedilol (Coreg) 25 MG TABLET 1 TAB PO BID HEART (Reported) Furosemide 40 MG TABLET 1 TAB PO DAILY WATER PILL (Reported) Hydralazine HCl 25 MG TABLET 1 TAB PO BID BP (Reported) Isosorbide Mononitrate (Isosorbide Mononitrate ER) 60 MG TAB.ER.24H 1 TAB PO DAILY HEART (Reported) Metolazone 2.5 MG TABLET 1 TAB PO QTHURS WATER PILL (Reported) Simvastatin (Simvastatin*) 40 MG TABLET 1 TAB PO DAILY CHOLESTEROL (Reported) Sitagliptin Phosphate (Januvia) 25 MG TABLET 1 TAB PO DAILY DM (Reported) Spironolactone (Aldactone) 25 MG TABLET 1 TAB PO DAILY WATER PILL (Reported) Past History Travel History Traveled to [place] past 21 day No Medical History Neurological: DIABETIC NEROPATHY Cardiovascular: CHF, hypertension, hyperlipidemia, nonischemic cardiomyopathy with an LVEF of 15-20% LVEF of 15-20% hypertensive heart disease FALL HX Respiratory: NONE Gastrointestinal: NONE Hepatic: NONE Renal: chronic kidney disease Musculoskeletal: NONE Psychiatric: NONE Endocrine: diabetes Blood Disorders: NONE Cancer(s): SIgmoid Carcinoma, s/p Polypectomy History of MRSA: No History of VRE: No History of CDIFF: No Influenza Vaccine: 11/17/15 Surgical History Surgical History: non-contributory Past Family/Social History Family History Relations & Conditions if any FATHER (HTN). MOTHER (DM). BROTHER BROTHER (Lung Cancer). Relation not specified for: FH: diabetes mellitus FH: hypertension Psychosocial History Where do you live? Acute Rehab Services at Home: None ETOH Use: denies use Illicit Drug Use: denies illicit drug use Review of Systems Review of Systems Constitutional: Denies: chills, fever. EENTM: Denies: visual changes. Cardiovascular: Denies: chest pain, edema, palpitations, peripheral edema. Respiratory: Denies: cough, short of breath, sputum production. GI: Denies: abdominal pain, bloating, constipation, diarrhea. Genitourinary: Denies: dysuria. Exam & Diagnostic Data Last 24 Hrs of Vital Signs/I&O Vital Signs Date Time Temp Pulse Resp B/P Pulse O2 O2 Flow FiO2 Ox Delivery Rate 04/16 1654 96.4 77 18 114/59 98 Room Air 04/16 1509 97.3 70 20 111/58 98 Room Air 04/16 1025 97.9 82 20 133/63 98 Room Air Intake & Output 04/16 1600 04/16 0800 04/16 0000 Intake Total Output Total Balance Patient 76.204 kg Weight Physical Exam General Appearance Alert, Oriented X3, Cooperative, No Acute Distress Skin dry skin both lower extremities HEENT Atraumatic, PERRLA, EOMI, dry mucous membrane Neck Supple, +2 Carotid Pulse wo Bruit, No LAD Lymphatic Axillary nl, Cervical nl Cardiovascular Regular Rate, Normal S1, Normal S2, No Murmurs, Gallops, Rubs Lungs Clear to Auscultation, Normal Air Movement Abdomen Normal Bowel Sounds, Soft, No Tenderness Neurological 2/5 left arm 3/5 left leg 4/5 right arm 4+/5 right leg finger to nose normal Extremities No Edema Last 24 Hrs of Labs/Jonathan: Laboratory Tests 04/16/16 1705: Troponin I < 0.01 04/16/16 1136: Anion Gap 13, Estimated GFR 27 L, BUN/Creatinine Ratio 32.8 H, Glucose 148 H, Hemoglobin A1c Pending, Calcium 8.8, Total Bilirubin 0.4, AST 17, ALT 35, Alkaline Phosphatase 110, Troponin I < 0.01, C-Reactive Prot, Quant Pending, Total Protein 6.5, Albumin 3.0 L, Globulin 3.5, Albumin/Globulin Ratio 0.9 L, TSH 1.260, Free T4 2.02 H, CBC w Diff NO MAN DIFF REQ, RBC 3.56 L, MCV 82.5, MCH 27.4, RDW 15.0 H, MPV 6.9 L, Gran % 80.4 H, Lymphocytes % 10.6 L, Monocytes % 8.5, Eosinophils % 0.5, Basophils % 0 L, Absolute Granulocytes 9.1 H, Absolute Lymphocytes 1.2, Absolute Monocytes 1.0 H, Absolute Eosinophils 0.1 , Absolute Basophils 0, PUBS MCHC 33.2, ESR Westergren Pending Diagnostic Data Other Results Head MRI EXAM TYPE: MRI - MRI-HEAD W/O LULU EXAMINATION: MR BRAIN WITHOUT CONTRAST CLINICAL INFORMATION: Left-sided weakness. Evaluate for cerebrovascular accident. COMPARISON: CT scan of the head 04/16/2016. TECHNIQUE: MRI of the brain without contrast was obtained using routine sequences. FINDINGS: There is a small focus of restricted diffusion involving the right precentral gyrus near the vertex best illustrated on T2 FLAIR image 20 of 23 series 10 consistent with an acute infarct within the anterior cerebral artery territory. This infarct corresponds to the left lower extremity motor association area. This acute finding is superimposed upon chronic ischemic changes including old infarcts involving the paramedian left frontal lobe and right parietal and occipital lobes. There is no pathological magnetic susceptibility artifact. Intracranial vascular flow voids including the major dural venous sinuses are preserved. There is no intracranial mass effect or midline shift. No abnormal extra-axial collection. Lateral and third ventricles are normal. No hydrocephalus. Midline structures including the cervicomedullary junction are normal. Bone marrow signal intensity is normal. There is no mastoid or middle ear effusion. Trivial paranasal sinus mucosal thickening within the ethmoid air cells and maxillary sinuses. Globes and orbits are symmetric. IMPRESSION: There is a small acute infarct centered within the right precentral gyrus that corresponds to the motor association area of the left lower extremity. This acute finding superimposed upon a few additional chronic cortical infarcts. DICTATED BY: PARTH ALMODOVAR MD DATE/TIME DICTATED:04/16/161654 Head CT IMPRESSION: No acute findings. No significant interval change. DICTATED BY: YVONNE MENDEZ MD DATE/TIME DICTATED:04/16/161114 Knee xray IMPRESSION: 1. Near complete resolution of previously seen suprapatellar knee joint effusion. 2. Decreasing prepatellar soft tissue swelling. 3. Mild tricompartmental degenerative changes again noted. 4. Osteopenia. No acute fracture. DICTATED BY: ANDREA GROVE MD DATE/TIME DICTATED:04/16/161300 Assessment/Plan Assessment: 85-year-old lady with PMH significant for CHF, nonischemic cardiomyopathy ejection fraction 15-20% (in 2014), hypertension, hyperlipidemia, CKD, NIDDM, Sigmoid Carcinoma s/p polypectomy, frequent falls, DVT now off coumadin, presented for left sided weakness and speech difficulty noticed since 730am on . # Acute left sided weakness concerning for stroke vs TIA - CT head negative - MRI showed small acute infarct centered within the right precentral gyrus that corresponds to the motor association area of the left lower extremity. - Speech at baseline (slow to respond and stutters intermittently). There was noticable weakness of both her left arm (2/5) and leg (3/5), compared to her right arm (4/5) and leg (4+/5). * Admit to telemetry * Neuro consult appreciated * Cardio consult appreciated * Formal swallow evaluation done, passed, recc regular and thin * Speech therapy/OT/PT * Follow carotid Ultrasound * Follow EKG and trop at 5pm and 11pm * Follow Echo * Follow lipid panel * Follow thyroid function test * Consider EEG * 1Xfull dose aspirin given, continue baby aspirin * Changed statin to atorvastatin 80 mg # Right knee pain - Xray shows complete resolution of previously seen suprapatellar knee joint effusion # CKD (at baseline) # Chronic anemia (at baseline) #DM * Hold oral antidiabetic agents (januvia) and start on novolog SS. * Accuchecks TIDAC/HS # Continue home meds Aldactone 25 mg daily Lasix 40 mg daily Isosorbide mononitrite 60 mg daily Hydralazine 25 mg BID Coreg 25 mg po BID Metolazone 2.5 mg every Diet: CC 2 DVT ppx: alps and SC heparin DNR/DNI As Ranked By This Provider Problem List: 1. Stroke Core Measures/Miscellaneous Acute Coronary Syndrome ACS Diagnosis: No Cerebrovascular Accident CVA/TIA Diagnosis: Yes NIH Stroke Scale: Total 6 Date Last Known Well: 04/16/16 Time Last Known Well: 729 Neurological S/S of CVA: Weakness of Limb Symptom Start Date: 04/16/16 (730am) Symptom Start Time: 0730 Reason tPA not ordered Medical Contraindication (past tpa window) Bedside Swallow Eval Done: Yes Result of Evaluation: Pass Days in Hospital: 1 Antithrombotic: Yes AFIB: No Aflutter: No Anticoagulant: Yes (for dvt ppx) Evidence of Atherosclerosis: No (carotid doppler pending) LDL Assessed Within 24 Hours: Yes (lipid panel pending) Currently on Statin: Yes (dose increased) Rehab Needs Assessed: Medical Eval for Rehab PT Consult Ordered: Yes Congestive Heart Failure CHF Diagnosis: No Venous Thromboembolism VTE Risk Factors: Acute medical illness, Age > 40 No [facility] VTE prophylaxis d/t: No contraindications No VTE Pharm Prophylaxis d/t: No contraindications VTE Diagnosis: No VTE Type: NONE VTE Confirmed by (Test): NONE Severe Sepsis Severe Sepsis Present: No Septic Shock Septic Shock Present: No Miscellaneous Documentation Attending Case Discussed With: HERIBERTO VIERA MD Primary Care Physician: DAGO CROSS MD Patient sees these Specialists Dr Schumacher cardiology Level of Patient Care: Telemetry LIZ SORENSEN 04/16/16 1611: Resident Review Statement Resident Statement: examined this patient, discussed with dietary internship, agreed with dietary internship, reviewed EMR data (avail), reviewed images Other Findings: This is an 85-year-old lady with past medical history significant for CHF, nonischemic cardiomyopathy (EF 15-20% in 2015), CKD, IDDM, sigmoid carcinoma status post polypectomy, frequent falls, remote history of DVT now off warfarin who was sent to the hospital for left-sided weakness and dysarthria noticed 7:30 AM at her intermediate facility. Her speech was back to baseline upon presentation to the hospital, however left-sided weakness persisted. Vital signs on admission: Temperature 97.9, pulse rate 80, respiratory rate 20, blood pressure 133/63, oxygen saturation 98% on room air. Physical exam at the time of admission: AAO 3, no acute distress. HEENT: NCAT, PERRLA, EOMI,Normal ophthalmoscopy exam, moist mucous membrane. Neck: Supple, no JVD, no carotid bruit, no LAD. CV: RRR, systolic murmur. Lungs: CTA BL. Extremities: No edema. Neurology: Normal speech, CN 3-12 intact. finger-to- nose impaired. Upward Babinski on the left lower extremity. Sensation intact. Normal reflexes. Gait not assessed. Muscle mass decreased in UE and LE BL. No sign of inflammation, no tenderness. Muscle tone decreased in left upper and left lower extremity; normal in right upper and lower extremity. No fasciculations. Strength 5/5 in right upper and right lower extremity. 1/5 in left upper and left lower extremity. Weak cone marker strength in left upper extremity ; normal in right upper extremity. Patient passed bedside swallow evaluation. Available labs and diagnostic data reviewed. Head CT negative, MRI shows small acute infarct centered within the right precentral gyrus. Problem list/plan: #CVA: * radiation monitor * Frequent neuro checks * Vital signs per protocol * Doppler carotid ultrasound * Echocardiogram * Rule out ACS with serial troponins and EKG * Cardiology consult * Neurology consult * Will start the patient on aspirin and high-dose statin * Formal swallow evaluation * PT/OT/speech therapy #History of left knee pain: * Not complaining of pain at this point; received ketorolac and Percocet in the ED. * Physical exam unremarkable * Knee x-ray shows :Near complete resolution of previously seen suprapatellar knee joint, Decreasing prepatellar soft tissue swelling. Mild tricompartmental degenerative changes again noted. Osteopenia. No acute fracture. * Percocet when necessary if develops any pain. #HFrEF, nonischemic cardiomyopathy: * Monitor on telemetry * Will continue home medications including isosorbide mononitrate, Coreg, Aldactone, Lasix #CKD: * Chronic/stable * Will avoid nephrotoxins * Monitor creatinine level closely #Diabetes: * Will hold oral diabetic medications while inpatient. * Accu-Cheks * Insulin sliding scale * Diabetic/cardiac diet #DVT prophylaxis: * Subcutaneous heparin #CODE STATUS: * DNI/DNR HERIBERTO VIERA MD 04/16/16 2314: Attending MD Review Statement Attending Statement Attending MD Statement: examined this patient, discuss w/resident/PA/[employer]ACLE SCM CONSULTANT, agreed w/resident/PA/ORACLE SCM CONSULTANT, reviewed EMR data (avail) Attending Assessment/Plan: New onset left sided weakness, decreased cone marker strength in left hand, power 2/5 in LUE and LLE, toes upgoing on left, cranial nerve exam intact. Will obtain MRI head, carotid doppler, echocardioram, ASA, high dose statin, neurology and cardiology consults, continue current management, bedside swallow and formal swallow eval, continue home medications, neuro checks swallow eval, continue home medications, neuro checks
--- NOTE | 2016-04-16 17:04 | MRI REPORT ---
EXAMINATION: MR BRAIN WITHOUT CONTRAST CLINICAL INFORMATION: Left-sided weakness. Evaluate for cerebrovascular accident. COMPARISON: CT scan of the head 04/16/2016. TECHNIQUE: MRI of the brain without contrast was obtained using routine sequences. FINDINGS: There is a small focus of restricted diffusion involving the right precentral gyrus near the vertex best illustrated on T2 FLAIR image 20 of 23 series 10 consistent with an acute infarct within the anterior cerebral artery territory. This infarct corresponds to the left lower extremity motor association area. This acute finding is superimposed upon chronic ischemic changes including old infarcts involving the paramedian left frontal lobe and right parietal and occipital lobes. There is no pathological magnetic susceptibility artifact. Intracranial vascular flow voids including the major dural venous sinuses are preserved. There is no intracranial mass effect or midline shift. No abnormal extra-axial collection. Lateral and third ventricles are normal. No hydrocephalus. Midline structures including the cervicomedullary junction are normal. Bone marrow signal intensity is normal. There is no mastoid or middle ear effusion. Trivial paranasal sinus mucosal thickening within the ethmoid air cells and maxillary sinuses. Globes and orbits are symmetric. IMPRESSION: There is a small acute infarct centered within the right precentral gyrus that corresponds to the motor association area of the left lower extremity. This acute finding superimposed upon a few additional chronic cortical infarcts.
[2016-04-16 18:36] VITALS: BP 134/62
[2016-04-16 23:42] VITALS: BP 156/80
[2016-04-16 23:48] LABS: PT 14.4 SEC (9.4-12.5)
--- NOTE | 2016-04-17 07:19 | ULTRASOUND REPORT ---
EXAMINATION: DUPLEX BILATERAL CAROTID ULTRASOUND CLINICAL INFORMATION: [Weakness; question CVA. COMPARISON: None. TECHNIQUE: Real-time ultrasound and Doppler techniques (integrating B-mode 2D vascular images, Doppler spectral analysis and color flow Doppler imaging) were utilized to interrogate the extracranial carotid and vertebral arteries bilaterally. FINDINGS: Right side: 1. There is mild hyperechoic plaque in the ECA/ICA region. 2. The common carotid artery velocity is 116 cm/s. 3. The proximal internal carotid artery velocities are 71 cm/s systolic and 18 cm/s diastolic. 4. The external carotid artery velocity is 90 cm/s. Left side: 1. There is [id number] hyperechoic plaque in the ECA/ICA region. 2. The common carotid artery velocity is 111 cm/s. 3. The proximal internal carotid artery velocities are 89 cm/s systolic and 25 cm/s diastolic. 4. The external carotid artery velocity is 243 cm/s. ADDITIONAL FINDINGS: 1. The vertebral arteries show antegrade flow. IMPRESSION: 1. RIGHT: Minimal, nonhemodynamically significant stenosis of the proximal right internal carotid artery corresponding to a 0-49% stenosis by velocity criteria. 2. LEFT: Minimal, nonhemodynamically significant stenosis of the proximal left internal carotid artery corresponding to a 0-49% stenosis by velocity criteria. 3. Antegrade flow is seen via the bilateral vertebral arteries.
--- NOTE | 2016-04-17 07:41 | PN- Housestaff ---
LIZ SORENSEN 04/17/16 0740: Subjective Follow-up For: CVA Subjective: Patient seen and examined. Lying comfortably in bed. Offers no complaints. Denies headache, nausea, vomiting, dizziness, lightheadedness, numbness of breath, chest pain,palpitation, abdominal pain, urinary symptoms. Vital signs stable. No overnight events reported. Review of Systems Constitutional: Denies: see HPI. Objective Last 24 Hrs of Vital Signs/I&O Vital Signs Date Time Temp Pulse Resp B/P Pulse O2 O2 Flow FiO2 Ox Delivery Rate 04/17 0919 86 108/62 04/17 0918 86 108/62 04/17 0918 86 108/62 04/17 0800 Room Air 04/17 0754 97.9 86 20 108/62 97 04/16 2342 98.1 70 16 156/80 99 Room Air 04/16 2200 70 156/80 04/16 2200 70 156/80 03 2200 70 156/80 04/16 1907 Room Air 04/16 1836 88 20 134/62 97 Room Air 04/16 1654 96.4 77 18 114/59 98 Room Air 04/16 1509 97.3 70 20 111/58 98 Room Air 04/16 1025 97.9 82 20 133/63 98 Room Air Intake & Output 04/17 1600 04/17 0800 04/17 0000 Intake Total 100 100 Output Total 4 Balance 96 100 Intake, Oral 100 100 Output, Urine 4 Physical Exam General Appearance: Alert, Cooperative, No Acute Distress Skin: No Rashes, No Breakdown, No Significant Lesion HEENT: Atraumatic, PERRLA, EOMI, Mucous Membr. moist/pink Neck: Supple, No JVD, No LAD Lymphatic: Axillary nl, Cervical nl Cardiovascular: Regular Rate, Systolic murmur Lungs: Clear to Auscultation, Normal Air Movement Abdomen: Normal Bowel Sounds, Soft, No Tenderness, No Hepatospenomegaly, No Masses Other Physical Findings: Neurology: Normal speech, CN 3-12 intact. [id number]-[id number] impaired. Upward Babinski on the left lower extremity. Sensation intact. Normal reflexes. Gait not assessed. Muscle mass decreased in UE and LE BL. No sign of inflammation, no tenderness. Muscle tone decreased in left upper and left lower extremity; normal in right upper and lower extremity. No fasciculations. Strength 5/5 in right upper and right lower extremity. 1/5 in left upper and left lower extremity. Weak claim review medical director strength in left upper extremity; normal in right upper extremity. Current Medications: Current Medications Sig/Ethel Start time Last Medication Dose Route Stop Time Status Admin Aspirin 325 MG DAILY 04/17 1000 AC 04/17 PO 0918 Aspirin 325 MG ONCE ONE 04/16 1700 DC 04/16 PO 04/16 1701 2200 Atorvastatin Calcium 80 MG 1700 04/16 1700 AC 04/16 PO 220 Carvedilol 25 MG BID 04/16 2199 AC 04/17 PO 0919 Furosemide 40 MG DAILY 04/16 1945 AC 04/17 PO 0919 Heparin Sodium 5,000 UNIT Q8 04/16 2199 AC 04/17 (Porcine) SC 0535 Hydralazine HCl 25 MG BID 04/16 2199 AC 04/17 PO 0918 Insulin Aspart 0 TIDAC 04/17 0800 AC SC Isosorbide 60 MG DAILY 04/16 1945 AC 04/17 Mononitrate PO 09 Ketorolac 0 .STK-MED ONE 04/16 1226 DC Tromethamine .ROUTE Ketorolac 30 MG ONCE ONE 04/16 1215 DC 04/16 Tromethamine IM 04/16 1216 1305 Oxycodone/ 1 TAB Q6P PRN 04/17 1999 AC 04/17 Acetaminophen PO 0112 Oxycodone/ 0 .STK-MED ONE 04/16 1226 DC Acetaminophen PO Oxycodone/ 1 TAB ONCE ONE 04/16 1215 DC 04/16 Acetaminophen PO 04/16 1216 1305 Spironolactone 25 MG DAILY 04/16 1946 AC 04/17 PO 0918 Last 24 Hrs of Lab/Jonathan Results Last 24 Hrs of Labs/Mics: Laboratory Tests 04/17/16 0620: Anion Gap 12, Estimated GFR 20 L, BUN/Creatinine Ratio 29.6 H, CBC w Diff NO MAN DIFF REQ, RBC 3.25 L, MCV 83.3, MCH 27.1, RDW 15.3 H, MPV 7.7, Gran % 72.9 , Lymphocytes % 17.1 L, Monocytes % 8.3, Eosinophils % 1.5, Basophils % 0.2, Absolute Granulocytes 7.0 H, Absolute Lymphocytes 1.6, Absolute Monocytes 0.8 H, Absolute Eosinophils 0.1, Absolute Basophils 0, PUBS MCHC 32.6 L 04/17/16 0335: Urine Color YEL, Urine Clarity CLEAR, Urine pH 6.0, Ur Specific [place] 1.010, Urine Protein NEG, Urine Ketones NEG, Urine Nitrite NEG, Urine Bilirubin NEG, Urine Urobilinogen 0.2, Ur Leukocyte Esterase NEG, Ur Microscopic EXAM NOT REQUIRED, Urine Hemoglobin NEG, Urine Glucose NEG 04/16/16 2330: Troponin I < 0.01, PT 14.4 H, INR 1.38 H 04/16/16 1705: Troponin I < 0.01 04/16/16 1136: Anion Gap 13, Estimated GFR 27 L, BUN/Creatinine Ratio 32.8 H, Glucose 148 H, Hemoglobin A1c Pending, Calcium 8.8, Magnesium 2.2, Total Bilirubin 0.4, AST 17, ALT 35, Alkaline Phosphatase 110, Troponin I < 0.01, C-Reactive Prot, Quant 8.5 H, Total Protein 6.5, Albumin 3.0 L, Globulin 3.5, Albumin/Globulin Ratio 0.9 L, TSH 1.260, Free T4 2.02 H, CBC w Diff NO MAN DIFF REQ, RBC 3.56 L, MCV 82.5 , MCH 27.4, RDW 15.0 H, MPV 6.9 L, Gran % 80.4 H, Lymphocytes % 10.6 L, Monocytes % 8.5, Eosinophils % 0.5, Basophils % 0 L, Absolute Granulocytes 9.1 H, Absolute Lymphocytes 1.2, Absolute Monocytes 1.0 H, Absolute Eosinophils 0.1 , Absolute Basophils 0, PUBS MCHC 33.2, ESR Westergren 81 H Assessment/Plan Assessment: This is an 85-year-old lady with past medical history significant for CHF, nonischemic cardiomyopathy (EF 15-20% in 2015), CKD, IDDM, sigmoid carcinoma status post polypectomy, frequent falls, remote history of DVT now off warfarin who was sent to the hospital for left-sided weakness and dysarthria noticed 7:30 AM at her [facility] facility. Her speech was back to baseline upon presentation to the hospital, however left-sided weakness persisted. Problem list/plan: #CVA: * Continue monitoring analyst * Frequent neuro checks * Vital signs per protocol * Follow Doppler carotid ultrasound * Follow Echocardiogram * Ruled out ACS with serial troponins and EKG * Cardiology consult placed please follow recommendations * Neurology consult placed please follow recommendations * Continue with aspirin and high-dose statin * The patient passed Formal swallow evaluation * PT/OT/speech therapy #History of left knee pain: * Not complaining of pain at this point; received ketorolac and Percocet in the ED. * Physical exam unremarkable * Knee x-ray shows :Near complete resolution of previously seen suprapatellar knee joint, Decreasing prepatellar soft tissue swelling. Mild tricompartmental degenerative changes again noted. Osteopenia. No acute fracture. * Percocet when necessary if develops any pain. #HFrEF, nonischemic cardiomyopathy: * Monitor on telemetry * Will continue home medications including isosorbide mononitrate, Coreg, Aldactone, Lasix #CKD: * Avoid nephrotoxins * Monitor creatinine level closely: Creatinine increased to 2.3 today from 1.8 on admission; encourage by mouth water intake, consider IV fluid therapy. #Diabetes: * Will hold oral diabetic medications while inpatient. * Accu-Cheks * Insulin sliding scale * Diabetic/cardiac diet #DVT prophylaxis: * Subcutaneous heparin #CODE STATUS: * DNI/DNR Problem List: 1. Stroke Pain Ratin Pain Location: NA Pain Goal: Remain pain free Pain Plan: PRN percocet for knee pain Tomorrow's Labs & Rationales: BEP to monitor electrolytes CBC to monitor H&H HERIBERTO VIERA MD 04/17/16 1635: Attending MD Review Statement Attending Statement Attending MD Statement: examined this patient, discuss w/resident/PA/DRIER TRANSFER CAR OPERATOR, agreed w/resident/PA/DRIER TRANSFER CAR OPERATOR, reviewed EMR data (avail) Attending Assessment/Plan: New onset left sided weakness, decreased claim review medical director strength in left hand, power 2/5 in LUE and LLE, toes upgoing on left, cranial nerve exam intact. Patient appears more alert today. Stroke confirmed by brain MRI. Carotid doppler negative. Will continue ASA and high dose statin, echocardiogram, neurology and cardiology consults, obtain CTA neck and head per neurology, continue current management.
[2016-04-17 07:54] VITALS: BP 108/62
[2016-04-17 09:06] LABS: ABSOLUTE BASOPHIL COUNT 0 /CUMM (0.0-0.2); ABSOLUTE EOSINOPHIL COUNT 0.1 /CUMM (0.0-0.7); ABSOLUTE LYMPH COUNT 1.6 /CUMM (1.2-3.4); ABSOLUTE MONOCYTE COUNT 0.8 /CUMM (0.10-0.60); BASOPHIL % 0.2 % (0.0-2.0); EOSINOPHIL % 1.5 % (0-5); GRANULOCYTE % 72.9 % (42.2-75.2); HEMATOCRIT 27.1 % (37-47); MEAN CORPUSCULAR HGB 27.1 PG (27.0-31.0); MEAN CORPUSCULAR HGB CONC 32.6 G/DL (33.0-37.0); MEAN CORPUSCULAR VOLUME 83.3 FL (81.0-99.0); MEAN PLATELET VOLUME 7.7 FL (7.4-10.4); PLATELET COUNT 254 /CUMM (130-400); RBC DISTRIBUTION WIDTH 15.3 % (11.5-14.5); RED BLOOD CELL CT 3.25 /CUMM (4.20-5.40); WHITE BLOOD CELL COUNT 9.6 /CUMM (4.8-10.8)
--- NOTE | 2016-04-17 13:47 | Cons- Neurology ---
General Information and HPI Consulting Request Date of Consult: 04/17/16 Requested By: HERIBERTO VIERA MD Reason for Consult: Stroke Source of Information: family History of Present Illness: The patient is a 85-year-old lady with PMH significant for CHF, nonischemic cardiomyopathy ejection fraction 15-20% (in 2014), hypertension, hyperlipidemia, CKD, NIDDM, sigmoid Carcinoma s/p polypectomy, frequent falls, DVT now off coumadin, presented for left sided weakness and speech difficulty noticed since 730am on 04/16/2016. As per the nursing note, pt's weakness was noticed while she was in the dining room this morning. She was found to be leaning towards the left. She was then brought back to her bed, and they noted that her left arm was flaccid. However, she was able to move her left lower extremity. She also was not able to communicate appropriately, unclear about the specifics of it. Pt presented to the ED around 1045am. As per ED note, no facial droop was noted and pt able to answer simple questions correctly and speech is clear Currently she is unable to move the LUE and LLE but speech is overall clear. Allergies/Medications Allergies: Coded Allergies: NO KNOWN ALLERGIES (01/01/13) Home Med List: Carvedilol (Coreg) 25 MG TABLET 1 TAB PO BID HEART (Reported) Furosemide 40 MG TABLET 1 TAB PO DAILY WATER PILL (Reported) Hydralazine HCl 25 MG TABLET 1 TAB PO BID BP (Reported) Isosorbide Mononitrate (Isosorbide Mononitrate ER) 60 MG TAB.ER.24H 1 TAB PO DAILY HEART (Reported) Metolazone 2.5 MG TABLET 1 TAB PO QTHURS WATER PILL (Reported) Simvastatin (Simvastatin*) 40 MG TABLET 1 TAB PO DAILY CHOLESTEROL (Reported) Sitagliptin Phosphate (Januvia) 25 MG TABLET 1 TAB PO DAILY DM (Reported) Spironolactone (Aldactone) 25 MG TABLET 1 TAB PO DAILY WATER PILL (Reported) Current Medications: Current Medications Sig/Ethel Start time Last Medication Dose Route Stop Time Status Admin Aspirin 325 MG DAILY 04/17 1000 AC 04/17 PO 0918 Aspirin 325 MG ONCE ONE 04/16 1700 DC 04/16 PO 04/16 1701 2200 Atorvastatin Calcium 80 MG 1700 04/16 1700 AC 04/16 PO 2200 Carvedilol 25 MG BID 04/16 2199 AC 04/17 PO 0919 Furosemide 40 MG DAILY 04/16 1945 AC 04/17 PO 0919 Heparin Sodium 5,000 UNIT Q8 04/16 2199 AC 04/17 (Porcine) SC 1309 Hydralazine HCl 25 MG BID 04/16 2199 AC 04/17 PO 0918 Insulin Aspart 0 TIDAC 04/17 08 AC 04/17 SC 1227 Isosorbide 60 MG DAILY 04/16 1945 AC 04/17 Mononitrate PO 0918 Oxycodone/ 1 TAB Q6P PRN 04/17 1999 AC 04/17 Acetaminophen PO 1205 Spironolactone 25 MG DAILY 04/16 1946 AC 04/17 PO 0918 Review of Systems Review of Systems: 10 point ROS was unremarkable except for what is noted as above Past History Travel History Traveled to [place] past 21 day No Medical History Blood Transfusion Hx: No Neurological: DIABETIC NEROPATHY EENT: NONE Cardiovascular: CHF, hypertension, hyperlipidemia, nonischemic cardiomyopathy with an LVEF of 15-20% LVEF of 15-20% hypertensive heart disease FALL HX Respiratory: NONE Gastrointestinal: NONE Hepatic: NONE Renal: chronic kidney disease Musculoskeletal: NONE Psychiatric: NONE Endocrine: diabetes Blood Disorders: NONE Cancer(s): SIgmoid Carcinoma, s/p Polypectomy MUSIC EDUCATION DIRECTOR/Reproductive: NONE Surgical History Surgical History: non-contributory Family History Relations & Conditions If Any: FATHER (HTN). MOTHER (DM). BROTHER BROTHER (Lung Cancer). Relation not specified for: FH: diabetes mellitus FH: hypertension Psychosocial History Where Do You Live? Acute Rehab Services at Home: None Smoking Status: Never Smoked ETOH Use: denies use Illicit Drug Use: denies illicit drug use Exam & Diagnostic Data Vital Signs and I&O Vital Signs Date Time Temp Pulse Resp B/P Pulse O2 O2 Flow FiO2 Ox Delivery Rate 04/17 09 86 108/62 04/17 0918 86 108/62 04/17 0918 86 108/62 04/17 0800 Room Air 04/17 0754 97.9 86 20 108/62 97 04/16 2342 98.1 70 16 156/80 99 Room Air 04/16 2200 70 156/80 04/160 70 156/80 04/16 2199 70 156/80 04/16 1907 Room Air 04/16 1836 88 20 134/62 97 Room Air 04/16 1654 96.4 77 18 114/59 98 Room Air 04/16 1509 97.3 70 20 111/58 98 Room Air Intake & Output 04/17 1600 04/17 0800 04/17 0000 Intake Total 100 100 Output Total 4 Balance 96 100 Intake, Oral 100 100 Output, Urine 4 Physical Exam: Patient A&Ox3, Left facial weakness noted otherwise CN2-12 intact Left arm 1/5 proximally and 2/5 distally Left LE 2/5 at best RUE and RLE is 5/5 Positive Ar's on the left Neg clonus downgoing toes Intact sensation Last 48 Hours of Lab Results: Laboratory Tests 04/17 04/17 0620 0335 Chemistry Sodium (137 - 145 mmol/L) 143 Potassium (3.5 - 5.1 mmol/L) 5.2 H Chloride (98 - 107 mmol/L) 107 Carbon Dioxide (22 - 30 mmol/L) 23 Anion Gap (5 - 16) 12 BUN (7 - 17 mg/dL) 68 H Creatinine (0.5 - 1.0 mg/dL) 2.3 H Estimated GFR (>60 ml/min) 20 L BUN/Creatinine Ratio (7 - 25 %) 29.6 H Hematology CBC w Diff NO MAN DIFF REQ WBC (4.8 - 10.8 /CUMM) 9.6 RBC (4.20 - 5.40 /CUMM) 3.25 L Hgb (12.0 - 16.0 G/DL) 8.8 L Hct (37 - 47 %) 27.1 L MCV (81.0 - 99.0 FL) 83.3 MCH (27.0 - 31.0 PG) 27.1 RDW (11.5 - 14.5 %) 15.3 H Plt Count (130 - 400 /CUMM) 254 MPV (7.4 - 10.4 FL) 7.7 Gran % (42.2 - 75.2 %) 72.9 Lymphocytes % (20.5 - 51.1 %) 17.1 L Monocytes % (1.7 - 9.3 %) 8.3 Eosinophils % (0 - 5 %) 1.5 Basophils % (0.0 - 2.0 %) 0.2 Absolute Granulocytes (1.4 - 6.5 /CUMM) 7.0 H Absolute Lymphocytes (1.2 - 3.4 /CUMM) 1.6 Absolute Monocytes (0.10 - 0.60 /CUMM) 0.8 H Absolute Eosinophils (0.0 - 0.7 /CUMM) 0.1 Absolute Basophils (0.0 - 0.2 /CUMM) 0 PUBS MCHC (33.0 - 37.0 G/DL) 32.6 L Urines Urine Color (YEL,AMB,STR) YEL Urine Clarity (CLEAR) CLEAR Urine pH (5.0 - 8.0) 6.0 Ur Specific [place] (1.001 - 1.035) 1.010 Urine Protein (NEG,<30 MG/DL) NEG Urine Ketones (NEG) NEG Urine Nitrite (NEG) NEG Urine Bilirubin (NEG) NEG Urine Urobilinogen (0.1 - 1.0 EU/dl) 0.2 Ur Leukocyte Esterase (NEG) NEG Ur Microscopic EXAM NOT REQUIRED Urine Hemoglobin (NEG) NEG Urine Glucose (N MG/DL) NEG 04/16 04/16 04/16 2330 1705 1136 Chemistry Sodium (137 - 145 mmol/L) 145 Potassium (3.5 - 5.1 mmol/L) 4.8 Chloride (98 - 107 mmol/L) 108 H Carbon Dioxide (22 - 30 mmol/L) 23 Anion Gap (5 - 16) 13 BUN (7 - 17 mg/dL) 59 H Creatinine (0.5 - 1.0 mg/dL) 1.8 H Estimated GFR (>60 ml/min) 27 L BUN/Creatinine Ratio (7 - 25 %) 32.8 H Glucose (65 - 99 mg/dL) 148 H Hemoglobin A1c (4.2 - 5.8 %) Pending Calcium (8.4 - 10.2 mg/dL) 8.8 Magnesium (1.6 - 2.3 mg/dL) 2.2 Total Bilirubin (0.2 - 1.3 mg/dL) 0.4 AST (14 - 36 U/L) 17 ALT (9 - 52 U/L) 35 Alkaline Phosphatase (<127 U/L) 110 Troponin I (< 0.11 ng/ml) < 0.01 < 0.01 < 0.01 C-Reactive Prot, Quant (<1.0 mg/dL) 8.5 H Total Protein (6.3 - 8.2 g/dL) 6.5 Albumin (3.5 - 5.0 g/dL) 3.0 L Globulin (1.9 - 4.2 gm/dL) 3.5 Albumin/Globulin Ratio (1.1 - 2.2 %) 0.9 L TSH (0.270 - 4.200 uIU/mL) 1.260 Free T4 (0.85 - 1.93 ng/dL) 2.02 H Coagulation PT (9.4 - 12.5 SEC) 14.4 H INR (0.90 - 1.19) 1.38 H Hematology CBC w Diff NO MAN DIFF REQ WBC (4.8 - 10.8 /CUMM) 11.3 H RBC (4.20 - 5.40 /CUMM) 3.56 L Hgb (12.0 - 16.0 G/DL) 9.8 L Hct (37 - 47 %) 29.4 L MCV (81.0 - 99.0 FL) 82.5 MCH (27.0 - 31.0 PG) 27.4 RDW (11.5 - 14.5 %) 15.0 H Plt Count (130 - 400 /CUMM) 259 MPV (7.4 - 10.4 FL) 6.9 L Gran % (42.2 - 75.2 %) 80.4 H Lymphocytes % (20.5 - 51.1 %) 10.6 L Monocytes % (1.7 - 9.3 %) 8.5 Eosinophils % (0 - 5 %) 0.5 Basophils % (0.0 - 2.0 %) 0 L Absolute Granulocytes (1.4 - 6.5 /CUMM) 9.1 H Absolute Lymphocytes (1.2 - 3.4 /CUMM) 1.2 Absolute Monocytes (0.10 - 0.60 /CUMM) 1.0 H Absolute Eosinophils (0.0 - 0.7 /CUMM) 0.1 Absolute Basophils (0.0 - 0.2 /CUMM) 0 PUBS MCHC (33.0 - 37.0 G/DL) 33.2 ESR Westergren (0 - 20 MM) 81 H Imaging/Other Studies: CUS: 1. RIGHT: Minimal, nonhemodynamically significant stenosis of the proximal right internal carotid artery corresponding to a 0-49% stenosis by velocity criteria. 2. LEFT: Minimal, nonhemodynamically significant stenosis of the proximal left internal carotid artery corresponding to a 0-49% stenosis by velocity criteria. 3. Antegrade flow is seen via the bilateral vertebral arteries. MRI brain: There is a small acute infarct centered within the right precentral gyrus that corresponds to the motor association area of the left lower extremity. This acute finding superimposed upon a few additional chronic cortical infarcts. Assessment/Plan Assessment: The patient is a 85-year-old lady with PMH significant for CHF, nonischemic cardiomyopathy ejection fraction 15-20% (in 2014), hypertension, hyperlipidemia, CKD, NIDDM, sigmoid Carcinoma s/p polypectomy, frequent falls, DVT now off coumadin, presented for left sided weakness and speech difficulty noticed since 730am on 04/16/2016. As per the nursing note, pt's weakness was noticed while she was in the dining room this morning. She was found to be leaning towards the left. She was then brought back to her bed, and they noted that her left arm was flaccid. However, she was able to move her left lower extremity. She also was not able to communicate appropriately, unclear about the specifics of it. Pt presented to the ED around 1045am. As per ED note, no facial droop was noted and pt able to answer simple questions correctly and speech is clear Currently she is unable to move the LUE and LLE but speech is overall clear. MRI of brain showed stroke in the right precentral gyrus. Likely this was an evolving stroke which is now completed Obtain CTA neck to COW to better assess intracranial flow, if there is stenosis then change from ASA to plavix Continue statin Obtain fasting lipids, b12, tsh, hba1c Obtain pt/ot/speech/swallow eval Obtain Echo with bubble continue telemetry Call with questions Recommendations: see above Consult Acknowledgment - Thank you for your consult request.
--- NOTE | 2016-04-17 15:10 | Event Note ---
Event Note Event Note: Neuro note reviewed. Requesting CTA neck with [place] [facility] to evaluate for stenosis; if stenosis present they would suggest switching from ASA to plavix. On discussion with attending machinist general Dr. Endy MD, we will empirically switch from ASA to plavix given that patient cannot have CTA secondary to renal dysfunction. In terms of blood pressure, patient's BP is running below what is optimal post- stroke (there should be permissive hypertension), we have held her antihypertensives for now and will monitor BP closely. We will start reintroducing these as per cardio recs.
[2016-04-17 16:26] VITALS: BP 112/58
--- NOTE | 2016-04-17 17:10 | Cons- Cardiology ---
General Information and HPI Consulting Request Date of Consult: 04/17/16 Requested By: HERIBERTO VIERA MD Reason for Consult: CVA, history of cardiomyopathy Source of Information: old records Exam Limitations: poor historian History of Present Illness: This is an 85-year-old female with a past medical history of severe nonischemic cardiomyopathy who has declined AICD, significant mitral regurgitation, chronic systolic congestive heart failure, chronic renal insufficiency not on DAY inhibitor therapy, history of DVT in 2014 for which she completed a Coumadin course, diabetes mellitus, and history of hypertension. The patient was somewhat confused during my interview with her and was unable to tell me why she is currently in the hospital. She does remember recently being here for knee pain. Per the medical record the patient was transferred from [facility] when she was noticed to have focal left-sided weakness. No reports of associated palpitations, chest pain, syncope, or dyspnea. On my interview with the patient she had no acute complaints other than some pain in her knee. The patient did have an MRI which showed a small acute infarct. Allergies/Medications Allergies: Coded Allergies: NO KNOWN ALLERGIES (01/01/13) Home Med List: Carvedilol (Coreg) 25 MG TABLET 1 TAB PO BID HEART (Reported) Furosemide 40 MG TABLET 1 TAB PO DAILY WATER PILL (Reported) Hydralazine HCl 25 MG TABLET 1 TAB PO BID BP (Reported) Isosorbide Mononitrate (Isosorbide Mononitrate ER) 60 MG TAB.ER.24H 1 TAB PO DAILY HEART (Reported) Metolazone 2.5 MG TABLET 1 TAB PO QTHURS WATER PILL (Reported) Simvastatin (Simvastatin*) 40 MG TABLET 1 TAB PO DAILY CHOLESTEROL (Reported) Sitagliptin Phosphate (Januvia) 25 MG TABLET 1 TAB PO DAILY DM (Reported) Spironolactone (Aldactone) 25 MG TABLET 1 TAB PO DAILY WATER PILL (Reported) Current Medications: Current Medications Sig/Ethel Start time Last Medication Dose Route Stop Time Status Admin Aspirin 325 MG DAILY 04/17 1000 DC 04/17 PO 09 Aspirin 325 MG ONCE ONE 04/16 1700 DC 04/16 PO 04/16 1701 2200 Atorvastatin Calcium 80 MG 1700 04/16 1700 AC 04/16 PO 2200 Carvedilol 25 MG BID 04/16 2200 DC 04/17 PO 0919 Clopidogrel Bisulfate 75 MG DAILY 03/12 1000 AC PO Furosemide 40 MG DAILY 04/16 1945 AC 04/17 PO 0919 Heparin Sodium 5,000 UNIT Q8 04/16 2199 AC 04/17 (Porcine) SC 1309 Hydralazine HCl 25 MG BID 04/16 2199 DC 04/17 PO 0918 Insulin Aspart 0 TIDAC 04/17 0800 AC 04/17 SC 1227 Isosorbide 60 MG DAILY 04/16 1945 DC 04/17 Mononitrate PO 0918 Oxycodone/ 1 TAB Q6P PRN 04/17 1999 AC 04/17 Acetaminophen PO 1205 Simethicone 80 MG Q6P PRN 04/17 1545 AC PO Spironolactone 25 MG DAILY 04/16 1946 AC 04/17 PO 0918 Review of Systems Review of Systems: Limited as the patient is currently a limited historian. 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 MOTHER (DM). BROTHER BROTHER (Lung Cancer). Relation not specified for: FH: diabetes mellitus FH: hypertension Psychosocial History Where Do You Live? Acute Rehab Services at Home: None Smoking Status: Never Smoked ETOH Use: denies use Illicit Drug Use: denies illicit drug use ECHO Results (as available) Report: Echocardiogram: December 2012: LVEF 15-20% Exam & Diagnostic Data Vital Signs and I&O Vital Signs Date Time Temp Pulse Resp B/P Pulse O2 O2 Flow FiO2 Ox Delivery Rate 04/17 1626 98.0 63 18 112/58 97 Room Air 04/17 0919 86 108/62 04/17 0918 86 108/62 04/17 0918 86 108/62 04/17 0800 Room Air 04/17 0754 97.9 86 20 108/62 97 04/16 2342 98.1 70 16 156/80 99 Room Air 03/10 2200 70 156/80 04/16 2199 70 156/80 04/16 2200 70 156/80 04/16 1907 Room Air 04/16 1836 88 20 134/62 97 Room Air 04/16 1654 96.4 77 18 114/59 98 Room Air Intake & Output 04/17 0800 04/17 0000 04/16 1600 04/16 0800 04/16 0000 Intake Total 420 100 100 Output Total 4 Balance 420 96 100 Intake, Oral 420 100 100 Output, Urine 4 Patient 168 lb Weight Physical Exam: General: no apparent distress. Mildly confused. Eyes: No obvious scleral icterus. HEENT: No jugular venous distention or abnormal jugular venous pulsations. Cardiovascular: Normal intensity S1/S2. 1/6 SM. Respiratory: No rales or rhonchi Abdomen: no guarding or rebound tenderness. Musculoskeletal: No clubbing or cyanosis noted, no edema Skin: warm Neurologic: Left-sided weakness Labs/Jonathan Results: Laboratory Tests 04/17 04/17 0620 0335 Chemistry Sodium (137 - 145 mmol/L) 143 Potassium (3.5 - 5.1 mmol/L) 5.2 H Chloride (98 - 107 mmol/L) 107 Carbon Dioxide (22 - 30 mmol/L) 23 Anion Gap (5 - 16) 12 BUN (7 - 17 mg/dL) 68 H Creatinine (0.5 - 1.0 mg/dL) 2.3 H Estimated GFR (>60 ml/min) 20 L BUN/Creatinine Ratio (7 - 25 %) 29.6 H Triglycerides (<150 mg/dL) 130 Cholesterol (<200 MG/DL) 106 LDL Cholesterol, Calc (65 - 129 mg/dL) 55 L HDL Cholesterol (40 - 60 mg/dL) 25 L Cholesterol/HDL Ratio (0.00 - 4.23 %) 4 Vitamin B12 (239 - 931 pg/mL) 676 Hematology CBC w Diff NO MAN DIFF REQ WBC (4.8 - 10.8 /CUMM) 9.6 RBC (4.20 - 5.40 /CUMM) 3.25 L Hgb (12.0 - 16.0 G/DL) 8.8 L Hct (37 - 47 %) 27.1 L MCV (81.0 - 99.0 FL) 83.3 MCH (27.0 - 31.0 PG) 27.1 RDW (11.5 - 14.5 %) 15.3 H Plt Count (130 - 400 /CUMM) 254 MPV (7.4 - 10.4 FL) 7.7 Gran % (42.2 - 75.2 %) 72.9 Lymphocytes % (20.5 - 51.1 %) 17.1 L Monocytes % (1.7 - 9.3 %) 8.3 Eosinophils % (0 - 5 %) 1.5 Basophils % (0.0 - 2.0 %) 0.2 Absolute Granulocytes (1.4 - 6.5 /CUMM) 7.0 H Absolute Lymphocytes (1.2 - 3.4 /CUMM) 1.6 Absolute Monocytes (0.10 - 0.60 /CUMM) 0.8 H Absolute Eosinophils (0.0 - 0.7 /CUMM) 0.1 Absolute Basophils (0.0 - 0.2 /CUMM) 0 PUBS MCHC (33.0 - 37.0 G/DL) 32.6 L Urines Urine Color (YEL,AMB,STR) YEL Urine Clarity (CLEAR) CLEAR Urine pH (5.0 - 8.0) 6.0 Ur Specific [place] (1.001 - 1.035) 1.010 Urine Protein (NEG,<30 MG/DL) NEG Urine Ketones (NEG) NEG Urine Nitrite (NEG) NEG Urine Bilirubin (NEG) NEG Urine Urobilinogen (0.1 - 1.0 EU/dl) 0.2 Ur Leukocyte Esterase (NEG) NEG Ur Microscopic EXAM NOT REQUIRED Urine Hemoglobin (NEG) NEG Urine Glucose (N MG/DL) NEG 04/16 04/16 04/16 2330 1705 1136 Chemistry Sodium (137 - 145 mmol/L) 145 Potassium (3.5 - 5.1 mmol/L) 4.8 Chloride (98 - 107 mmol/L) 108 H Carbon Dioxide (22 - 30 mmol/L) 23 Anion Gap (5 - 16) 13 BUN (7 - 17 mg/dL) 59 H Creatinine (0.5 - 1.0 mg/dL) 1.8 H Estimated GFR (>60 ml/min) 27 L BUN/Creatinine Ratio (7 - 25 %) 32.8 H Glucose (65 - 99 mg/dL) 148 H Hemoglobin A1c (4.2 - 5.8 %) Pending Calcium (8.4 - 10.2 mg/dL) 8.8 Magnesium (1.6 - 2.3 mg/dL) 2.2 Total Bilirubin (0.2 - 1.3 mg/dL) 0.4 AST (14 - 36 U/L) 17 ALT (9 - 52 U/L) 35 Alkaline Phosphatase (<127 U/L) 110 Troponin I (< 0.11 ng/ml) < 0.01 < 0.01 < 0.01 C-Reactive Prot, Quant (<1.0 mg/dL) 8.5 H Total Protein (6.3 - 8.2 g/dL) 6.5 Albumin (3.5 - 5.0 g/dL) 3.0 L Globulin (1.9 - 4.2 gm/dL) 3.5 Albumin/Globulin Ratio (1.1 - 2.2 %) 0.9 L TSH (0.270 - 4.200 uIU/mL) 1.260 Free T4 (0.85 - 1.93 ng/dL) 2.02 H Coagulation PT (9.4 - 12.5 SEC) 14.4 H INR (0.90 - 1.19) 1.38 H Hematology CBC w Diff NO MAN DIFF REQ WBC (4.8 - 10.8 /CUMM) 11.3 H RBC (4.20 - 5.40 /CUMM) 3.56 L Hgb (12.0 - 16.0 G/DL) 9.8 L Hct (37 - 47 %) 29.4 L MCV (81.0 - 99.0 FL) 82.5 MCH (27.0 - 31.0 PG) 27.4 RDW (11.5 - 14.5 %) 15.0 H Plt Count (130 - 400 /CUMM) 259 MPV (7.4 - 10.4 FL) 6.9 L Gran % (42.2 - 75.2 %) 80.4 H Lymphocytes % (20.5 - 51.1 %) 10.6 L Monocytes % (1.7 - 9.3 %) 8.5 Eosinophils % (0 - 5 %) 0.5 Basophils % (0.0 - 2.0 %) 0 L Absolute Granulocytes (1.4 - 6.5 /CUMM) 9.1 H Absolute Lymphocytes (1.2 - 3.4 /CUMM) 1.2 Absolute Monocytes (0.10 - 0.60 /CUMM) 1.0 H Absolute Eosinophils (0.0 - 0.7 /CUMM) 0.1 Absolute Basophils (0.0 - 0.2 /CUMM) 0 PUBS MCHC (33.0 - 37.0 G/DL) 33.2 ESR Westergren (0 - 20 MM) 81 H Diagnostic Data EKG Results Tracing was personally reviewed and shows sinus rhythm with poor R wave progression CXR Results 04/09/2016 IMPRESSION: No acute cardiopulmonary findings. Other Results Telemetry tracings were personally reviewed and showed sinus rhythm MRI IMPRESSION: There is a small acute infarct centered within the right precentral gyrus that corresponds to the motor association area of the left lower extremity. This acute finding superimposed upon a few additional chronic cortical infarcts. Assessment/Plan Assessment/Plan 1. Acute CVA 2. History of severe nonischemic cardiomyopathy who has declined AICD 3. Hx of significant mitral regurgitation 4. Chronic systolic congestive heart failure 5. Chronic renal insufficiency with hyperkalemia not on DAY inhibitor therapy 6. History of DVT in 2014 for which she completed a Coumadin course 7. Hx DM/HTN 8. Anemia The patient presents with acute CVA symptoms confirmed by MRI. Neurology input reviewed. As she is not a good candidate for IV contrast consider empiric daily Plavix. Continue daily statin. May need to allow for some permissive hypertension in the setting of acute CVA. Can hold her outpatient antimyopathics for now. Would continue on her outpatient Lasix. She has no evidence of CHF decompensation at this time. Would keep on telemetry to monitor for any silent atrial fibrillation. Obtain an echocardiogram. Thien Schumacher MD [facility] Consult Acknowledgment - Thank you for your consult request.
[2016-04-17 23:36] VITALS: BP 110/60
[2016-04-18 08:03] VITALS: BP 112/58
--- NOTE | 2016-04-18 08:31 | PN- Housestaff ---
See Addendum Subjective Follow-up For: CVA Subjective: Patient seen and examined. Complains of left leg pain this morning. Patient reports that it hurts on movement. Her left side continues to be weak. Cant squeez fingers, can't lift leg against gravity. Review of Systems Constitutional: Reports: see HPI. Objective Last 24 Hrs of Vital Signs/I&O Vital Signs Date Time Temp Pulse Resp B/P Pulse O2 O2 Flow FiO2 Ox Delivery Rate 04/18 0803 97.8 64 18 112/58 98 Room Air 04/18 0800 Room Air 04/17 2336 98.7 81 18 110/60 97 Room Air 04/17 1626 98.0 63 18 112/58 97 Room Air 04/17 0919 86 108/62 04/17 0918 86 108/62 04/17 0918 86 108/62 Intake & Output 04/18 1600 04/18 0800 04/18 0000 Intake Total 200 615 Output Total 400 500 Balance -200 115 Intake, Oral 200 615 Output, Urine 400 500 Physical Exam General Appearance: Alert, Oriented X3, Cooperative, No Acute Distress Skin: No Rashes, No Breakdown HEENT: Atraumatic Neck: Supple Cardiovascular: Regular Rate, Normal S1, Normal S2 Lungs: Normal Air Movement Abdomen: Soft, No Tenderness Extremities: patient reports of pain in left knee, no reddness/swelling appreciated on physical exam. Current Medications: Current Medications Sig/Ethel Start time Last Medication Dose Route Stop Time Status Admin Aspirin 325 MG DAILY 04/17 1000 DC 04/17 PO 0918 Atorvastatin Calcium 80 MG 1700 04/16 1700 AC 04/17 PO 1642 Carvedilol 25 MG BID 04/16 2199 DC 04/17 PO 0919 Clopidogrel Bisulfate 75 MG DAILY 04/18 1000 AC 04/18 PO 0900 Furosemide 40 MG DAILY 04/16 194 DC 04/18 PO 0900 Heparin Sodium 5,000 UNIT Q8 04/16 2199 AC 04/18 (Porcine) SC 0549 Hydralazine HCl 25 MG BID 04/16 2199 DC 04/17 PO 0918 Insulin Aspart 0 TIDAC 04/17 0800 AC 04/17 SC 1227 Isosorbide 60 MG DAILY 04/16 1945 DC 04/17 Mononitrate PO 0918 Oxycodone/ 1 TAB Q6P PRN 04/17 1999 AC 04/18 Acetaminophen PO 0144 Simethicone 80 MG Q6P PRN 04/17 1545 AC PO Sodium Polystyrene 60 ML ONCE ONE 04/18 929 DC Sulfonate PO 04/18 930 Spironolactone 25 MG DAILY 04/16 1946 AC 04/18 PO 0900 Last 24 Hrs of Lab/Jonathan Results Last 24 Hrs of Labs/Mics: Laboratory Tests 04/18/16 0615: Anion Gap 12, Estimated GFR 19 L, BUN/Creatinine Ratio 30.4 H, CBC w Diff NO MAN DIFF REQ, RBC 3.38 L, MCV 83.6, MCH 27.1, RDW 14.8 H, MPV 7.7, Gran % 69.1 , Lymphocytes % 21.4, Monocytes % 7.9, Eosinophils % 1.4, Basophils % 0.2, Absolute Granulocytes 5.9, Absolute Lymphocytes 1.8, Absolute Monocytes 0.7 H, Absolute Eosinophils 0.1, Absolute Basophils 0, PUBS MCHC 32.4 L Assessment/Plan Assessment: This is an 85-year-old lady with past medical history significant for CHF, nonischemic cardiomyopathy (EF 15-20% in 2015), CKD, IDDM, sigmoid carcinoma status post polypectomy, frequent falls, remote history of DVT now off warfarin who was sent to the hospital for left-sided weakness and dysarthria noticed 7:30 AM at her longterm facility. Her speech was back to baseline upon presentation to the hospital, however left-sided weakness persisted. X ray Knee Knee x-ray showed :Near complete resolution of previously seen suprapatellar knee joint, Decreasing prepatellar soft tissue swelling. Mild tricompartmental degenerative changes again noted. Osteopenia. No acute fracture. MRI 04/16 There is a small acute infarct centered within the right precentral gyrus that corresponds to the motor association area of the left lower extremity. This acute finding superimposed upon a few additional chronic cortical infarcts. Carotid doppler 1. RIGHT: Minimal, nonhemodynamically significant stenosis of the proximal right internal carotid artery corresponding to a 0-49% stenosis by velocity criteria. 2. LEFT: Minimal, nonhemodynamically significant stenosis of the proximal left internal carotid artery corresponding to a 0-49% stenosis by velocity criteria. Problem list/Assessment and Plan Ischemia CVA Patient will be continued to be monitored on Telemetry floor for any underlying atrial fibrillation. She is on neuro checks, Doppler carotid significant for non hemodynamical significant minimal stenosis. Neurology evaluated the patient on 04/17/16 and recommend CTA which can not be given due to underlying renal dysfunction. Patient is started on empiric plavix per Security Director's recommendations. Patient passed swallow evaluation. PT/OT on board Hyperkalemia K elevated to 5.3 today from 5.2 yesterday, etiology uncertain. Will continue to monitor for now. Can give one dose of kayexelate and re-evaluate in am. Chronic kidney disease Will encourage PO intake, and continue to watch closely. Peggy void nephrotoxins such as NSAIDs Patient already got her todays dose of lasix. Hx of left knee pain Patient is reports of left knee pain today. No reddness, swelling appreciated. Knee is tender to palpation and painful to passive movement. Percocet when necessary for pain as patient has nasreen on ckd, NSAIDs will be avoided. HFrEF, nonischemic cardiomyopathy: Patient is continued on her home meds including isosorbide mononitrate, Coreg, Aldactone, Lasix Diabetes: Patients oral antidiabetics are held and she is started on Novolog SS and Diabetic diet. BS 129 this am. serial accu checks ordered SC heprin or DVT ppx Patient is DNR/DNI Problem List: 1. Stroke Pain Ratin Pain Location: left knee Pain Goal: Pain 4 or less Pain Plan: tylenol and percocet for pain Tomorrow's Labs & Rationales: cbc bep
[2016-04-18 08:46] LABS: ABSOLUTE BASOPHIL COUNT 0 /CUMM (0.0-0.2); ABSOLUTE EOSINOPHIL COUNT 0.1 /CUMM (0.0-0.7); ABSOLUTE GRANULOCYTE CT 5.9 /CUMM (1.4-6.5); ABSOLUTE LYMPH COUNT 1.8 /CUMM (1.2-3.4); ABSOLUTE MONOCYTE COUNT 0.7 /CUMM (0.10-0.60); BASOPHIL % 0.2 % (0.0-2.0); EOSINOPHIL % 1.4 % (0-5); GRANULOCYTE % 69.1 % (42.2-75.2); HEMATOCRIT 28.2 % (37-47); MEAN CORPUSCULAR HGB 27.1 PG (27.0-31.0); MEAN CORPUSCULAR HGB CONC 32.4 G/DL (33.0-37.0); MEAN CORPUSCULAR VOLUME 83.6 FL (81.0-99.0); MEAN PLATELET VOLUME 7.7 FL (7.4-10.4); PLATELET COUNT 285 /CUMM (130-400); RBC DISTRIBUTION WIDTH 14.8 % (11.5-14.5); RED BLOOD CELL CT 3.38 /CUMM (4.20-5.40); WHITE BLOOD CELL COUNT 8.5 /CUMM (4.8-10.8)
--- NOTE | 2016-04-18 16:01 | PN- Neurology ---
Subjective Subjective: Continues to have left sided wekaness Objective Vital Signs and I&Os Vital Signs Date Time Temp Pulse Resp B/P Pulse O2 O2 Flow FiO2 Ox Delivery Rate 04/18 0803 97.8 64 18 112/58 98 Room Air 04/18 0800 Room Air 04/17 2336 98.7 81 18 110/60 97 Room Air 04/17 1626 98.0 63 18 112/58 97 Room Air Intake & Output 04/18 1600 04/18 0800 04/18 0000 04/17 1600 04/17 0800 04/17 0000 Intake Total 540 200 615 420 100 100 Output Total 400 500 4 Balance 540 -200 115 420 96 100 Intake, Oral 540 200 615 420 100 100 Output, Urine 400 500 4 Physical Exam: Exam continues to show left UE and LE weakness Current Medications: Current Medications Sig/Ethel Start time Last Medication Dose Route Stop Time Status Admin Atorvastatin Calcium 80 MG 1700 04/16 1700 AC 04/17 PO 1642 Clopidogrel Bisulfate 75 MG DAILY 04/18 1000 AC 04/18 PO 0900 Furosemide 40 MG DAILY 04/16 194 DC 04/18 PO 0900 Heparin Sodium 5,000 UNIT Q8 04/16 2200 AC 04/18 (Porcine) SC 1306 Insulin Aspart 0 TIDAC 04/17 0800 AC 04/17 SC 1227 Oxycodone/ 1 TAB Q6P PRN 04/16 2000 AC 04/18 Acetaminophen PO 0144 Simethicone 80 MG Q6P PRN 04/17 1545 AC PO Sodium Polystyrene 60 ML ONCE ONE 04/18 0930 DC 04/18 Sulfonate PO 04/18 0931 1103 Spironolactone 25 MG DAILY 04/16 194 AC 04/18 PO 0900 Results Last 24 Hours of Lab Results: Laboratory Tests 04/18 0615 Chemistry Sodium (137 - 145 mmol/L) 142 Potassium (3.5 - 5.1 mmol/L) 5.3 H Chloride (98 - 107 mmol/L) 107 Carbon Dioxide (22 - 30 mmol/L) 23 Anion Gap (5 - 16) 12 BUN (7 - 17 mg/dL) 73 H Creatinine (0.5 - 1.0 mg/dL) 2.4 H Estimated GFR (>60 ml/min) 19 L BUN/Creatinine Ratio (7 - 25 %) 30.4 H Hematology CBC w Diff NO MAN DIFF REQ WBC (4.8 - 10.8 /CUMM) 8.5 RBC (4.20 - 5.40 /CUMM) 3.38 L Hgb (12.0 - 16.0 G/DL) 9.1 L Hct (37 - 47 %) 28.2 L MCV (81.0 - 99.0 FL) 83.6 MCH (27.0 - 31.0 PG) 27.1 RDW (11.5 - 14.5 %) 14.8 H Plt Count (130 - 400 /CUMM) 285 MPV (7.4 - 10.4 FL) 7.7 Gran % (42.2 - 75.2 %) 69.1 Lymphocytes % (20.5 - 51.1 %) 21.4 Monocytes % (1.7 - 9.3 %) 7.9 Eosinophils % (0 - 5 %) 1.4 Basophils % (0.0 - 2.0 %) 0.2 Absolute Granulocytes (1.4 - 6.5 /CUMM) 5.9 Absolute Lymphocytes (1.2 - 3.4 /CUMM) 1.8 Absolute Monocytes (0.10 - 0.60 /CUMM) 0.7 H Absolute Eosinophils (0.0 - 0.7 /CUMM) 0.1 Absolute Basophils (0.0 - 0.2 /CUMM) 0 PUBS MCHC (33.0 - 37.0 G/DL) 32.4 L Recent Imaging Studies: CUS: 1. RIGHT: Minimal, nonhemodynamically significant stenosis of the proximal right internal carotid artery corresponding to a 0-49% stenosis by velocity criteria. 2. LEFT: Minimal, nonhemodynamically significant stenosis of the proximal left internal carotid artery corresponding to a 0-49% stenosis by velocity criteria. 3. Antegrade flow is seen via the bilateral vertebral arteries. MRI brain: There is a small acute infarct centered within the right precentral gyrus that corresponds to the motor association area of the left lower extremity. This acute finding superimposed upon a few additional chronic cortical infarcts. Assessment/Plan Assessment: The patient is a 85-year-old lady with PMH significant for CHF, nonischemic cardiomyopathy ejection fraction 15-20% (in 2014), hypertension, hyperlipidemia, CKD, NIDDM, sigmoid Carcinoma s/p polypectomy, frequent falls, DVT now off coumadin, presented for left sided weakness and speech difficulty noticed since 730am on 04/16/2016. As per the nursing note, pt's weakness was noticed while she was in the dining room this morning. She was found to be leaning towards the left. She was then brought back to her bed, and they noted that her left arm was flaccid. However, she was able to move her left lower extremity. She also was not able to communicate appropriately, unclear about the specifics of it. Pt presented to the ED around 1045am. As per ED note, no facial droop was noted and pt able to answer simple questions correctly and speech is clear Currently she is unable to move the LUE and LLE but speech is overall clear. MRI of brain showed stroke in the right precentral gyrus. Likely this was an evolving stroke which is now completed Obtain CTA neck to COW to better assess intracranial flow, if there is stenosis then change from ASA to plavix Continue statin Obtain fasting lipids, b12, tsh, hba1c Obtain pt/ot/speech/swallow eval Obtain Echo with bubble continue telemetry Call with questions Dr. Mtaa will be back on service in AM, call with questions Plan: see above
[2016-04-18 16:38] VITALS: BP 113/61
--- NOTE | 2016-04-18 21:22 | Patient Discharge Instructions ---
Discharge Instructions General Discharge Information You were seen/treated for: Stroke, with left sided weakness High potassium Special Instructions: - Follow up with PCP in 1 week - Follow kidney functions closely, especially on SPIRINOLACTONE. - Follow potassium closely - Follow up with store manager and neurologist PLEASE HOLD antihypertensive meds for now as BP is therapeutic (120s-130s). If pt becomes hypertensive, please start her COREG first as this as has the highest mortality benefit, followed by his nitrate, followed by hydralazine. Diet Continue normal diet: Yes Recommended Diet: Heart Healthy Activity Full Activity/No Limits: Yes (As tolerated) Acute Coronary Syndrome Inclusion Criteria At DC or during hospital stay patient has or had the following: ACS DIAGNOSIS No Discharge Core Measures Meds if any: Prescribed or Continued at Discharge Meds if any: NOT Prescribed or Continued at Discharge Congestive Heart Failure Inclusion Criteria At DC or during hospital stay patient has or had the following: CHF DIAGNOSIS No Discharge Core Measures Meds if any: Prescribed or Continued at Discharge Meds if any: NOT Prescribed or Continued at Discharge Cerebrovascular accident Inclusion Criteria At DC or during hospital stay patient has or had the following: CVA/TIA Diagnosis Yes Discharge Core Measures Meds if any: Prescribed or Continued at Discharge Antithrombotic Yes Statin (required if LDL =>70) Yes Anticoagulant Yes Meds if any: NOT Prescribed or Continued at Discharge Venous thromboembolism Inclusion Criteria VTE Diagnosis No VTE Type NONE VTE Confirmed by (Test) NONE Discharge Core Measures - Per Current guidelines, there needs to be overlap - treatment for the first 5 days of Warfarin therapy. - If discharged on Warfarin prior to 5 days of - overlap therapy, the patient will need to be - assessed for post discharge needs including - *Post discharge parental anticoagulation - *Warfarin and/or parental anticoagulation education - *Follow up date to check INR post discharge At least 5 days overlap therapy as Inpatient No Meds if any: Prescribed or Continued at Discharge Note: Overlap Therapy is Warfarin and Anticoagulant Meds if any: NOT Prescribed or Continued at Discharge
[2016-04-18 22:52] VITALS: BP 122/78
--- NOTE | 2016-04-18 23:24 | ECHOCARDIOGRAM REPORT ---
SHIRA BUCKNER Age: 85 : 1930 Gender: F Exam Date: 04/18/2016 14:15 Exam Location: [facility] Ht (in): 62 Wt (lb): 168 BSA: 1.85 BP: 110 / 60 Ordering Physician: CHIOMA SORENSEN, Referring Physician: Buddy Schumacher M.D. Technologist: Yamini Spivey RDCS Room Number: 181 Indications: STROKE Rhythm: Technical Quality: Fair FINDINGS Left Ventricle Normal size left ventricle. Left ventricular wall thickness mildly increased. No obvious regional wall motion abnormalities. Left ventricular ejection fraction is estimated at 55 %. Right Ventricle Normal right ventricular size and function. Right Atrium Normal right atrial size. Left Atrium Normal left atrial size. Mitral Valve No mitral stenosis. Mild mitral annular calcification. Mild mitral regurgitation. Aortic Valve No aortic stenosis. Trileaflet aortic valve. Trace aortic regurgitation. Tricuspid Valve Structurally normal tricuspid valve. No tricuspid stenosis. Mild tricuspid regurgitation. Right ventricular systolic pressure estimated to be elevated at > 55 mmHg. Pulmonic Valve Pulmonic valve not well visualized, grossly normal. Pericardium No pericardial effusion. Great Vessels Normal size aortic root. CONCLUSIONS Normal size left ventricle. Left ventricular wall thickness mildly increased. No obvious regional wall motion abnormalities. Left ventricular ejection fraction is estimated at 55 %. Normal right ventricular size and function. Right ventricular systolic pressure estimated to be elevated at > 55 mmHg. No pericardial effusion. Buddy Schumacher M.D. (Electronically Signed) Final Date: 18 April 2016 23:23 MEASUREMENTS (Male / Female) Normal Values 2D ECHO LV Diastolic Diameter PLAX 4.4 cm 4.2 - 5.9 / 3.9 - 5.3 cm LV Systolic Diameter PLAX 3.1 cm 2.1 - 4.0 cm LV Fractional Shortening PLAX 29.5 % 25 - 46 % LV Ejection Fraction 2D Teich 56.8 % IVS Diastolic Thickness 1.2 cm LVPW Diastolic Thickness 1.2 cm LV Relative Wall Thickness 0.5 RV Internal Dim ED PLAX 2.3 cm 1.9 - 3.8 cm LVOT Diameter 1.9 cm Aortic Root Diameter 3.0 cm LA Systolic Diameter LX 3.8 cm 3.0 - 4.0 / 2.7 - 3.8 cm LA Volume 29.0 cm 18 - 58 / 22 - 52 cm Ascending Aorta Diameter 3.2 cm DOPPLER AV Peak Velocity 139.0 cm/s AV Peak Gradient 7.7 mmHg AV Mean Velocity 92.6 cm/s AV Mean Gradient 4.0 mmHg AV Velocity Time Integral 27.4 cm LVOT Peak Velocity 94.0 cm/s LVOT Peak Gradient 3.5 mmHg LVOT Mean Velocity 72.2 cm/s LVOT Mean Gradient 2.0 mmHg LVOT Velocity Time Integral 16.8 cm LVOT Stroke Volume 47.6 cm AV Area Cont Eq vti 1.7 cm AV Area Cont Eq pk 1.9 cm MV Peak Velocity 75.4 cm/s MV Peak Gradient 2.3 mmHg MV Mean Velocity 48.6 cm/s MV Mean Gradient 1.0 mmHg Mitral E Point Velocity 42.0 cm/s Mitral A Point Velocity 43.5 cm/s Mitral E to A Ratio 1.0 MV PHT Velocity 70.8 cm/s MV Deceleration Drew 330.0 cm/s MV Pressure Half Time 64.4 ms MV Area PHT 3.4 cm MV Deceleration Time 236.0 ms TR Peak Velocity 378.0 cm/s TR Peak Gradient 57.2 mmHg Right Atrial Pressure 10.0 mmHg Pulmonary Artery Systolic Pressu 67.2 mmHg Right Ventricular Systolic Press 67.2 mmHg PV Peak Velocity 89.6 cm/s PV Peak Gradient 3.2 mmHg PV Mean Velocity 58.2 cm/s PV Mean Gradient 2.0 mmHg PV Velocity Time Integral 17.4 cm LV E' Lateral Velocity 7.0 cm/s Mitral E to LV E' Lateral Ratio 6.0 LV E' Septal Velocity 5.4 cm/s Mitral E to LV E' Septal Ratio 7.8
--- NOTE | 2016-04-19 06:46 | PN- Housestaff ---
DRE GARBER,RACHELLE 04/19/16 0646: Subjective Follow-up For: stroke with left sided weakness hyperkalemia hypotension Tele-Events Since Last Visit: SR 70s PVCs Subjective: Pt seen this morning, she was alert and oriented, she knows that she is being hospitalized for a stroke but was confused why she could not move her left arm. she reports pain in her right knee, worse on active rom. Strength 1/5 of both upper and lower left extremity, however she was able to retract her left leg in response to pain. she also has decreased sensation of left hand. her bp has ranged 110-122/58-78 with her antihypertensives being held. echo results out and showed improvement in ef to 55%. No atrial thrombus noted, however brian would be a better test for it. due to her kidney functions, cta would not be a good test. Review of Systems Constitutional: Reports: see HPI. Objective Last 24 Hrs of Vital Signs/I&O Vital Signs Date Time Temp Pulse Resp B/P Pulse O2 O2 Flow FiO2 Ox Delivery Rate 04/19 0000 96 04/18 2252 99.4 86 20 122/78 18 Room Air 04/18 1638 97.6 71 18 113/61 97 Room Air Intake & Output 04/19 1600 04/19 0800 04/19 0000 Intake Total 360 600 Output Total 500 Balance -140 600 Intake, Oral 360 600 Number 1 Bowel Movements Output, Urine 500 Physical Exam General Appearance: Alert, Oriented X3, Cooperative, No Acute Distress Skin: No Significant Lesion HEENT: Atraumatic Cardiovascular: Regular Rate, Normal S1, Normal S2, No Murmurs Lungs: Clear to Auscultation, Normal Air Movement Abdomen: Normal Bowel Sounds, Soft, No Tenderness Neurological: Normal Speech Extremities: 1/5 strength left extremity (upper and lower) Current Medications: Current Medications Sig/Ethel Start time Last Medication Dose Route Stop Time Status Admin Atorvastatin Calcium 80 MG 1700 04/16 1700 AC 04/18 PO 1615 Clopidogrel Bisulfate 75 MG DAILY 04/18 1000 AC 04/18 PO 0900 Furosemide 40 MG DAILY 04/16 1946 DC 04/18 PO 0900 Heparin Sodium 5,000 UNIT Q8 04/16 2200 AC 04/19 (Porcine) SC 0606 Insulin Aspart 0 TIDAC 04/17 0800 AC 04/17 SC 1227 Oxycodone/ 1 TAB Q6P PRN 04/17 1999 AC 04/19 Acetaminophen PO 0058 Simethicone 80 MG Q6P PRN 04/17 1545 AC PO Sodium Polystyrene 60 ML ONCE ONE 04/18 929 DC 04/18 Sulfonate PO 04/18 0931 1103 Spironolactone 25 MG DAILY 04/16 1946 AC 04/18 PO 0900 Assessment/Plan Assessment: This is an 85-year-old lady with past medical history significant for CHF, nonischemic cardiomyopathy (EF 15-20% in 2014, now 55%), CKD, IDDM, sigmoid carcinoma status post polypectomy, frequent falls, remote history of DVT now off warfarin who was sent to the hospital for left-sided weakness and dysarthria noticed 7:30 AM at the assisted facility. Her speech was back to baseline upon presentation to the hospital, however left-sided weakness persisted. X ray Knee Knee x-ray showed :Near complete resolution of previously seen suprapatellar knee joint, Decreasing prepatellar soft tissue swelling. Mild tricompartmental degenerative changes again noted. Osteopenia. No acute fracture. MRI 04/16 There is a small acute infarct centered within the right precentral gyrus that corresponds to the motor association area of the left lower extremity. This acute finding superimposed upon a few additional chronic cortical infarcts. Carotid doppler 1. RIGHT: Minimal, nonhemodynamically significant stenosis of the proximal right internal carotid artery corresponding to a 0-49% stenosis by velocity criteria. 2. LEFT: Minimal, nonhemodynamically significant stenosis of the proximal left internal carotid artery corresponding to a 0-49% stenosis by velocity criteria. Problem list/Assessment and Plan Ischemia CVA Patient will be continued to be monitored on Telemetry floor for any underlying atrial fibrillation. She is on neuro checks, Doppler carotid significant for non hemodynamical significant minimal stenosis. Neurology evaluated the patient on 04/17/16 and recommend CTA which can not be given due to underlying renal dysfunction. Patient is started on empiric plavix per neurologist and Car Porter's recommendations. Patient passed swallow evaluation. PT/OT on board Antihypertensive meds on hold (BP range 110-122/58-78 now), consider restarting slowly Hyperkalemia unknown etiology K elevated to 5.3 on 04/18, given kayexelate . Will continue to monitor for now. Can give one dose of kayexelate and re-evaluate in am. Chronic kidney disease Will encourage PO intake, and continue to watch closely. Peggy void nephrotoxins such as NSAIDs Patient already got her todays dose of lasix. Hx of knee pain (right and left) Patient is reports of RIGHT knee pain today Percocet when necessary for pain as patient has nasreen on ckd, NSAIDs will be avoided. HFrEF, nonischemic cardiomyopathy (EF 15-20% in 2015): Home meds including isosorbide mononitrate, Coreg, Aldactone, Lasix ON HOLD due to borderline BP Repeat echo shows EF 55% Diabetes: Patients oral antidiabetics are held and she is started on Novolog SS and Diabetic diet. Serial accu checks ordered SC heparin or DVT ppx Patient is DNR/DNI Problem List: 1. 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 Patient appears more alert today. Stroke confirmed by brain MRI. Carotid doppler negative. Will continue high dose statin, echocardiogram, neurology and cardiology consults. Unable to obtain CTA due to renal function. Discontinue ASA. Start Plavix 75mg daily. Follow cardiology recommendations. Echo done which shows improvement in EF to 55%. Patient's BP is borderline low- normal, cannot restart cardiac medications. Will restart medications as BP is tolerated.
[2016-04-19 07:43] LABS: ABSOLUTE BASOPHIL COUNT 0 /CUMM (0.0-0.2); ABSOLUTE EOSINOPHIL COUNT 0.1 /CUMM (0.0-0.7); ABSOLUTE GRANULOCYTE CT 6.2 /CUMM (1.4-6.5); ABSOLUTE LYMPH COUNT 1.5 /CUMM (1.2-3.4); ABSOLUTE MONOCYTE COUNT 0.7 /CUMM (0.10-0.60); BASOPHIL % 0.2 % (0.0-2.0); EOSINOPHIL % 1.3 % (0-5); GRANULOCYTE % 72.9 % (42.2-75.2); HEMATOCRIT 30.7 % (37-47); MEAN CORPUSCULAR HGB CONC 32.5 G/DL (33.0-37.0); MEAN CORPUSCULAR VOLUME 82.9 FL (81.0-99.0); MEAN PLATELET VOLUME 7.1 FL (7.4-10.4); PLATELET COUNT 288 /CUMM (130-400); RBC DISTRIBUTION WIDTH 14.8 % (11.5-14.5); WHITE BLOOD CELL COUNT 8.5 /CUMM (4.8-10.8)
[2016-04-19 08:17] VITALS: BP 128/60
--- NOTE | 2016-04-19 08:59 | Discharge Summary ---
Visit Information Visit Dates Admission Date: 04/16/16 Hospital Course Allergies: Coded Allergies: NO KNOWN ALLERGIES (01/01/13) Discharge Instructions Medications at Discharge Discharge Medications: Stop taking the following medications: Simvastatin (Simvastatin*) 40 MG TABLET ORAL DAILY Continue taking these medications: Sitagliptin Phosphate (Januvia) 25 MG TABLET 1 Tablet ORAL DAILY Comments: NOT GIVEN IN HOSPITAL Carvedilol (Coreg) 25 MG TABLET 1 Tablet ORAL TWICE DAILY Comments: Last Taken: 04/12/16 Time: 9 AM Spironolactone (Aldactone) 25 MG TABLET 1 Tablet ORAL DAILY Comments: Last Taken: 04/12/16 Time: 9 AM Furosemide (Furosemide) 40 MG TABLET 1 Tablet ORAL DAILY Qty = 90 Isosorbide Mononitrate (Isosorbide Mononitrate ER) 60 MG TAB.ER.24H 1 Tablet ORAL DAILY Qty = 30 Metolazone (Metolazone) 2.5 MG TABLET 1 Tablet ORAL EVERY TUESDAY Qty = 12 Comments: NOT GIVEN IN HOSPITAL Hydralazine HCl (Hydralazine HCl) 25 MG TABLET 1 Tablet ORAL TWICE DAILY Comments: Last Taken: 04/12/16 Time: 9 AM Start taking the following new medications: Clopidogrel Bisulfate (Plavix) 75 MG TABLET 75 Milligram ORAL DAILY Qty = 30 No Refills Atorvastatin Calcium (Atorvastatin Calcium) 80 MG TABLET 80 Milligram ORAL 5 PM Qty = 30 No Refills
--- NOTE | 2016-04-19 09:37 | Discharge Summary ---
Visit Information Visit Dates Admission Date: 04/16/16 Discharge Date: 04/21/16 Hospital Course Course Attending Physician: HERIBERTO VIERA MD Primary Care Physician: AMERICA GARBER,DAGO [place] Consulting Request: 1 Consulting Specialty: Neurology Consulting Request: 2 Consulting Specialty: Cardiology Hospital Course: This is an 85-year-old lady with past medical history significant for hypertension, CHF, nonischemic cardiomyopathy (EF 15-20% in 2015), CKD, IDDM, sigmoid carcinoma status post polypectomy, frequent falls, remote history of DVT now off warfarin who was sent to the hospital for left-sided weakness and dysarthria noticed 7:30 AM at her custodial facility. Her speech was back to baseline upon presentation to the hospital, however left-sided weakness persisted. Vital signs on admission: Temperature 97.9, pulse rate 80, respiratory rate 20, blood pressure 133/63, oxygen saturation 98% on room air. Physical exam at the time of admission: AAO 3, no acute distress. HEENT: NCAT, PERRLA, EOMI,Normal ophthalmoscopy exam, moist mucous membrane. Neck: Supple, no JVD, no carotid bruit, no LAD. CV: RRR, systolic murmur. Lungs: CTA BL. Extremities: No edema. Neurology: Normal speech, CN 3-12 intact. finger-to- nose impaired. Upward Babinski on the left lower extremity. Sensation intact. Normal reflexes. Gait not assessed. Muscle mass decreased in UE and LE BL. No sign of inflammation, no tenderness. Muscle tone decreased in left upper and left lower extremity; normal in right upper and lower extremity. No fasciculations. Strength 5/5 in right upper and right lower extremity. 1/5 in left upper and left lower extremity. 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 Patient passed bedside swallow evaluation. Head CT negative. X ray Knee: Knee x-ray showed :Near complete resolution of previously seen suprapatellar knee joint, Decreasing prepatellar soft tissue swelling. Mild tricompartmental degenerative changes again noted. Osteopenia. No acute fracture. MRI 04/16 There is a small acute infarct centered within the right precentral gyrus that corresponds to the motor association area of the left lower extremity. This acute finding superimposed upon a few additional chronic cortical infarcts. Carotid doppler 1. RIGHT: Minimal, nonhemodynamically significant stenosis of the proximal right internal carotid artery corresponding to a 0-49% stenosis by velocity criteria. 2. LEFT: Minimal, nonhemodynamically significant stenosis of the proximal left internal carotid artery corresponding to a 0-49% stenosis by velocity criteria. The patient was admitted to telemetry monitored service. The following problems were addressed during the course of her hospital stay: PROBLEMS MANAGED #Ischemia CVA: The patient passed bedside on formal swallow evaluation. The patient was monitored on telemetry. Vital signs were monitored closely. Frequent neuro checks were performed. The patient was started on aspirin upon admission which was changed to Plavix later on as per neurology recommendation. Antihypertensives were held on admission for permissive hypertension. Neurology evaluated the patient on 04/17/16 and recommended CTA which can not be given due to underlying renal dysfunction. Patient was started on empiric plavix per neurologist and Asian Studies Professor's recommendations. PLEASE HOLD antihypertensive meds if BP is less than 120s systolically. If pt becomes hypertensive, please start COREG first as this as has the highest mortality benefit, followed by his nitrate, followed by hydralazine. Cardiology recommended resuming anti-myopathic medication regimen as blood pressure tolerates. Neurology recommended to maintain blood pressure above systolic 120s-130s - keep BP in 120-130 systolic range minimum for cerebral perfusion; #Chronic kidney disease: The patient has creatinine of 1.8 on admission which increased to maximum of 2.4 on 04/18/2016. By mouth water intake was encouraged. Nephrotoxins were avoided. Creatinine improved to 1.8 on 04/20/2016. #Hx left knee pain: Patient had complaint of left knee pain on admission, she received ketorolac and Percocet in the ED. The time of our admission physical exam she was asymptomatic and physical exam was unremarkable. Knee x-ray showed :Near complete resolution of previously seen suprapatellar knee joint, Decreasing prepatellar soft tissue swelling. Mild tricompartmental degenerative changes again noted. Osteopenia. No acute fracture. * She received when necessary Percocet for pain management. * Would avoid NSAIDs given CKD. #HFrEF, nonischemic cardiomyopathy (EF 15-20% in 2014): Home meds including isosorbide mononitrate, Coreg, Aldactone, Lasix ON HOLD due to borderline BP. Repeat echo shows EF 55%. * Cardiology recommended resuming anti-myopathic medication regimen as blood pressure tolerates. Neurology recommended to maintain blood pressure above systolic 120s-130s. Patient's blood pressure was low 120s and 1/10. * Please resume the medication as blood pressure tolerates as indicated above #Diabetes: Patient's oral medications were held on admission she was maintained on insulin sliding scale and diabetic diet. Blood glucose level were monitored closely and remained well controlled. #DVT prophylaxis: SC Heparin Patient is DNR/DNI #This DC summary contains course of hospital stay from 04/16/16-04/21/16. Allergies: Coded Allergies: NO KNOWN ALLERGIES (01/01/13) Significant Procedures: Echo 04/18/16: FINDINGS Left Ventricle Normal size left ventricle. Left ventricular wall thickness mildly increased. No obvious regional wall motion abnormalities. Left ventricular ejection fraction is estimated at 55 %. Right Ventricle Normal right ventricular size and function. Right Atrium Normal right atrial size. Left Atrium Normal left atrial size. Mitral Valve No mitral stenosis. Mild mitral annular calcification. Mild mitral regurgitation. Aortic Valve No aortic stenosis. Trileaflet aortic valve. Trace aortic regurgitation. Tricuspid Valve Structurally normal tricuspid valve. No tricuspid stenosis. Mild tricuspid regurgitation. Right ventricular systolic pressure estimated to be elevated at > 55 mmHg. Pulmonic Valve Pulmonic valve not well visualized, grossly normal. Pericardium No pericardial effusion. Great Vessels Normal size aortic root. CONCLUSIONS Normal size left ventricle. Left ventricular wall thickness mildly increased. No obvious regional wall motion abnormalities. Left ventricular ejection fraction is estimated at 55 %. Normal right ventricular size and function. Right ventricular systolic pressure estimated to be elevated at > 55 mmHg. No pericardial effusion. Buddy Schumacher M.D. (Electronically Signed) Final Date: 18 April 2016 23:23 Pertinent Lab Results: Laboratory Tests 04/20/16 0710: Anion Gap 13, Estimated GFR 27 L, BUN/Creatinine Ratio 31.7 H 04/19/16 0704: Anion Gap 11, Estimated GFR 22 L, BUN/Creatinine Ratio 34.3 H, CBC w Diff NO MAN DIFF REQ, RBC 3.70 L, MCV 82.9, MCH 27.0, RDW 14.8 H, MPV 7.1 L, Gran % 72.9, Lymphocytes % 17.2 L, Monocytes % 8.4, Eosinophils % 1.3, Basophils % 0.2 , Absolute Granulocytes 6.2, Absolute Lymphocytes 1.5, Absolute Monocytes 0.7 H , Absolute Eosinophils 0.1, Absolute Basophils 0, PUBS MCHC 32.5 L Disposition Summary Disposition Principal Diagnosis: CVA right hemisphere Additional Diagnosis: History of nonischemic cardiomyopathy History of hypertension CKD Discharge Disposition: SNF Discharge Instructions General Discharge Information Code Status: Do Not Resucitate/Intubat Patient's Diet: Diabetic/cardiac Patient's Activity: As tolerated Follow-Up Instructions/Appts: - Follow up with PCP in 1 week - Follow kidney functions closely, especially on lasix. - Follow potassium closely - Follow up with cosmetics and toiletries salesperson and neurologist Medications at Discharge Discharge Medications: Stop taking the following medications: Simvastatin (Simvastatin*) 40 MG TABLET ORAL DAILY Carvedilol (Coreg) 25 MG TABLET ORAL TWICE DAILY Furosemide (Furosemide) 40 MG TABLET ORAL DAILY Qty = 90 Isosorbide Mononitrate (Isosorbide Mononitrate ER) 60 MG TAB.ER.24H ORAL DAILY Qty = 30 Metolazone (Metolazone) 2.5 MG TABLET ORAL EVERY TUESDAY Qty = 12 Hydralazine HCl (Hydralazine HCl) 25 MG TABLET ORAL TWICE DAILY Continue taking these medications: Sitagliptin Phosphate (Januvia) 25 MG TABLET 1 Tablet ORAL DAILY Comments: NOT GIVEN IN HOSPITAL Spironolactone (Aldactone) 25 MG TABLET 1 Tablet ORAL DAILY Comments: Last Taken: 04/21/16 Time: 930 AM Start taking the following new medications: Clopidogrel Bisulfate (Plavix) 75 MG TABLET 75 Milligram ORAL DAILY Qty = 30 No Refills Comments: Last Taken: 04/21/16 Time: 930 AM Atorvastatin Calcium (Atorvastatin Calcium) 80 MG TABLET 80 Milligram ORAL 5 PM Qty = 30 No Refills Comments: Last Taken: 04/20/16 Time: 345 PM Copies To: DAGO CROSS MD No Refills Copies To: DAGO CROSS MD No Refills Atorvastatin Calcium (Atorvastatin Calcium) 80 MG TABLET 80 Milligram ORAL 5 PM Qty = 30 No Refills Copies To: DAGO CROSS MD
[2016-04-19 10:45] VITALS: BP 128/60
[2016-04-19 16:25] VITALS: BP 122/60
--- NOTE | 2016-04-19 16:40 | PN- Neurology ---
Subjective Subjective: feels better. has some movement left hand, no voluntary leg movement. denied sensory loss Review of Systems: denies headache, dizziness Objective Vital Signs and I&Os Vital Signs Date Time Temp Pulse Resp B/P Pulse O2 O2 Flow FiO2 Ox Delivery Rate 04/19 1625 99.6 82 20 122/60 96 Room Air 04/19 1045 98.0 72 20 128/60 / 1038 Room Air 04/19 0817 98.0 72 20 128/60 98 Room Air 04/19 0800 Room Air 04/19 0000 96 04/18 2252 99.4 86 20 122/78 18 Room Air 04/18 1638 97.6 71 18 113/61 97 Room Air Intake & Output 04/19 1600 04/19 0800 04/19 0000 04/18 1600 04/18 0800 04/18 0000 Intake Total 465 360 600 540 200 615 Output Total 250 500 400 500 Balance 215 -140 600 540 -200 115 Intake, Oral 465 360 600 540 200 615 Number 1 Bowel Movements Output, Urine 250 500 400 500 Physical Exam: awake, speech clear, language intact. VFF EOMI P4ERRL equivocal facial assymetry 1-2 left surgical resident, 0-1 prox arm and leg. power normal on right sensation intact on left Current Medications: Current Medications Sig/Ethel Start time Last Medication Dose Route Stop Time Status Admin Atorvastatin Calcium 80 MG 1700 04/16 1700 AC 04/19 PO 1601 Clopidogrel Bisulfate 75 MG DAILY 04/18 1000 AC 04/19 PO 0900 Heparin Sodium 5,000 UNIT Q8 04/16 2200 AC 04/19 (Porcine) SC 1358 Insulin Aspart 0 TIDAC 04/17 0800 AC 04/17 SC 1227 Oxycodone/ 1 TAB Q6P PRN 04/16 2000 AC 04/19 Acetaminophen PO 0058 Simethicone 80 MG Q6P PRN 04/17 1545 AC PO Spironolactone 25 MG DAILY 04/16 1947 AC 04/19 PO 0900 Results Last 24 Hours of Lab Results: Laboratory Tests 04/19 0704 Chemistry Sodium (137 - 145 mmol/L) 143 Potassium (3.5 - 5.1 mmol/L) 4.9 Chloride (98 - 107 mmol/L) 106 Carbon Dioxide (22 - 30 mmol/L) 26 Anion Gap (5 - 16) 11 BUN (7 - 17 mg/dL) 72 H Creatinine (0.5 - 1.0 mg/dL) 2.1 H Estimated GFR (>60 ml/min) 22 L BUN/Creatinine Ratio (7 - 25 %) 34.3 H Hematology CBC w Diff NO MAN DIFF REQ WBC (4.8 - 10.8 /CUMM) 8.5 RBC (4.20 - 5.40 /CUMM) 3.70 L Hgb (12.0 - 16.0 G/DL) 10.0 L Hct (37 - 47 %) 30.7 L MCV (81.0 - 99.0 FL) 82.9 MCH (27.0 - 31.0 PG) 27.0 RDW (11.5 - 14.5 %) 14.8 H Plt Count (130 - 400 /CUMM) 288 MPV (7.4 - 10.4 FL) 7.1 L Gran % (42.2 - 75.2 %) 72.9 Lymphocytes % (20.5 - 51.1 %) 17.2 L Monocytes % (1.7 - 9.3 %) 8.4 Eosinophils % (0 - 5 %) 1.3 Basophils % (0.0 - 2.0 %) 0.2 Absolute Granulocytes (1.4 - 6.5 /CUMM) 6.2 Absolute Lymphocytes (1.2 - 3.4 /CUMM) 1.5 Absolute Monocytes (0.10 - 0.60 /CUMM) 0.7 H Absolute Eosinophils (0.0 - 0.7 /CUMM) 0.1 Absolute Basophils (0.0 - 0.2 /CUMM) 0 PUBS MCHC (33.0 - 37.0 G/DL) 32.5 L Recent Imaging Studies: Echo: Normal size left ventricle. Left ventricular wall thickness mildly increased. No obvious regional wall motion abnormalities. Left ventricular ejection fraction is estimated at 55 % Dopplers: 1. The vertebral arteries show antegrade flow. IMPRESSION: 1. RIGHT: Minimal, nonhemodynamically significant stenosis of the proximal right internal carotid artery corresponding to a 0-49% stenosis by velocity criteria. 2. LEFT: Minimal, nonhemodynamically significant stenosis of the proximal left internal carotid artery corresponding to a 0-49% stenosis by velocity criteria. CT: here is an old infarct in the right parietal lobe that is not changed from the prior exam. In the anteromedial left frontal lobe, there is what appears to be a prominent sulcus. No definite new acute infarct or hemorrhage is seen. No intra-axial or extra-axial fluid collections are seen. There is mild brain atrophy. Except for atrophy, the brain stem and cerebellum are grossly unremarkable. 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 evaluation completed, on appropriate meds keep BP in 120-130 systolic range minimum for cerebral perfusion. call back if further neurologic consultation required Plan: PT/OT rehab consultation
--- NOTE | 2016-04-19 18:36 | PN- Cardiology ---
Subjective Subjective: Feeling a little better. No chest pain or dyspnea. No palpitations. No more confusion. Objective Vital Signs and I&Os Vital Signs Date Time Temp Pulse Resp B/P Pulse O2 O2 Flow FiO2 Ox Delivery Rate 04/19 1625 99.6 82 20 122/60 96 Room Air 04/19 1045 98.0 72 20 128/60 04/19 1038 Room Air 04/19 0817 98.0 72 20 128/60 98 Room Air 04/19 0800 Room Air 04/19 0000 96 04/18 2252 99.4 86 20 122/78 18 Room Air Intake & Output 04/19 1600 04/19 0800 04/19 0000 04/18 1600 04/18 0800 04/18 0000 Intake Total 465 360 600 540 200 615 Output Total 250 500 400 500 Balance 215 -140 600 540 -200 115 Intake, Oral 465 360 600 540 200 615 Number 1 Bowel Movements Output, Urine 250 500 400 500 Physical Exam: General: no apparent distress. Eyes: No obvious scleral icterus. HEENT: No jugular venous distention or abnormal jugular venous pulsations. Cardiovascular: Normal intensity S1/S2. Respiratory: No rales or rhonchi Abdomen: no guarding or rebound tenderness. Musculoskeletal: No clubbing or cyanosis noted, no edema Skin: warm Neurologic: Left-sided weakness Current Medications: Current Medications Sig/Ethel Start time Last Medication Dose Route Stop Time Status Admin Atorvastatin Calcium 80 MG 1700 04/16 1700 AC 04/19 PO 1601 Clopidogrel Bisulfate 75 MG DAILY 04/18 1000 AC 04/19 PO 0900 Heparin Sodium 5,000 UNIT Q8 04/16 2200 AC 04/19 (Porcine) SC 1358 Insulin Aspart 0 TIDAC 04/17 0800 AC 04/17 SC 1227 Oxycodone/ 1 TAB Q6P PRN 04/17 1999 AC 04/19 Acetaminophen PO 0058 Simethicone 80 MG Q6P PRN 04/17 1545 AC PO Spironolactone 25 MG DAILY 04/16 1947 AC 04/19 PO 0900 Results Last 48 Hrs of Labs/Mics: Laboratory Tests 04/19/16 0704: Anion Gap 11, Estimated GFR 22 L, BUN/Creatinine Ratio 34.3 H, CBC w Diff NO MAN DIFF REQ, RBC 3.70 L, MCV 82.9, MCH 27.0, RDW 14.8 H, MPV 7.1 L, Gran % 72.9, Lymphocytes % 17.2 L, Monocytes % 8.4, Eosinophils % 1.3, Basophils % 0.2 , Absolute Granulocytes 6.2, Absolute Lymphocytes 1.5, Absolute Monocytes 0.7 H , Absolute Eosinophils 0.1, Absolute Basophils 0, PUBS MCHC 32.5 L 04/18/16 0615: Anion Gap 12, Estimated GFR 19 L, BUN/Creatinine Ratio 30.4 H, CBC w Diff NO MAN DIFF REQ, RBC 3.38 L, MCV 83.6, MCH 27.1, RDW 14.8 H, MPV 7.7, Gran % 69.1 , Lymphocytes % 21.4, Monocytes % 7.9, Eosinophils % 1.4, Basophils % 0.2, Absolute Granulocytes 5.9, Absolute Lymphocytes 1.8, Absolute Monocytes 0.7 H, Absolute Eosinophils 0.1, Absolute Basophils 0, PUBS MCHC 32.4 L Recent Imaging Studies: Telemetry tracings personally reviewed, shows SR Echo: CONCLUSIONS Normal size left ventricle. Left ventricular wall thickness mildly increased. No obvious regional wall motion abnormalities. Left ventricular ejection fraction is estimated at 55 %. Normal right ventricular size and function. Right ventricular systolic pressure estimated to be elevated at > 55 mmHg. No pericardial effusion. Assessment/Plan Assessment/Plan 1. Acute CVA 2. History of severe nonischemic cardiomyopathy with now recovered EF 3. Hx of significant mitral regurgitation 4. Chronic systolic congestive heart failure 5. Chronic renal insufficiency with hyperkalemia not on DAY inhibitor therapy 6. History of DVT in 2015 for which she completed a Coumadin course 7. Hx DM/HTN Doing well. Telemetry confirms no evidence of silent afib thus far. Continue Plavix as recommended by Neurology. Continue statin. Echo shows that her EF/MR has recovered on her antimyopathic regimen, resume as BP tolerates. Would resume the Carvedilol first. She appears euvolemic on exam. Would continue on telemetry until discharge to continue to monitor for silent afib. Thien Schumacher MD [facility] Continue telemetry? Yes
[2016-04-20 01:10] VITALS: BP 114/68
--- NOTE | 2016-04-20 07:21 | PN- Housestaff ---
ENRIQUE GARBER,LEATHA 04/20/16 0721: Subjective Follow-up For: Anterior cerebral artery infarct Complaints: no complaints Tele-Events Since Last Visit: Normal sinus rhythm with heart rate between 81-90, first-degree heart block, IA interval 0.24 Subjective: Patient seen, examined at the bedside. She was able to put the word in a sentence but taking time in initiation. Left upper and lower limb power is 0/5. Denies any active complaints. Review of Systems Constitutional: Denies: no symptoms. Comments: She was complaining of pain in the right thigh, but in examination, there was no any tenderness. Muscles were soft and bilateral. Dorsalis pedis were palpable. Objective Last 24 Hrs of Vital Signs/I&O Vital Signs Date Time Temp Pulse Resp B/P Pulse O2 O2 Flow FiO2 Ox Delivery Rate 04/20 0838 98.3 113 18 138/76 97 Room Air 04/20 0110 99.4 93 20 114/68 97 Room Air 04/19 1625 99.6 82 20 122/60 96 Room Air Intake & Output 04/20 1600 04/20 0800 04/20 0000 Intake Total 480 340 Output Total 250 Balance 480 90 Intake, Oral 480 340 Output, Urine 250 Physical Exam General Appearance: Alert, Cooperative, No Acute Distress Skin: No Rashes, No Breakdown HEENT: Atraumatic, PERRLA, EOMI Neck: Supple, No JVD Cardiovascular: Normal S1, Normal S2 Lungs: Clear to Auscultation, Normal Air Movement Abdomen: Soft, No Tenderness Neurological: and alert, no any acute distress, left facial weakness, left arm, 0/5, left lower leg were 0/ 5, Extremities: No Clubbing, No Cyanosis, No Edema Vascular: Normal Pulses, Pulses Symmetrical Current Medications: Current Medications Sig/Ethel Start time Last Medication Dose Route Stop Time Status Admin Atorvastatin Calcium 80 MG 1700 04/16 1700 DCD 04/21 PO 1632 Clopidogrel Bisulfate 75 MG DAILY 04/18 1000 DCD 04/21 PO 0936 Heparin Sodium 5,000 UNIT Q8 04/16 2200 DCD 04/21 (Porcine) SC 1433 Insulin Aspart 0 TIDAC 04/17 0800 DCD 04/21 SC 1210 Oxycodone/ 1 TAB Q6P PRN 04/16 2000 DCD 04/21 Acetaminophen PO 0350 Simethicone 80 MG Q6P PRN 04/17 1545 DCD PO Spironolactone 25 MG DAILY 04/16 1947 DCD 04/21 PO 0936 Assessment/Plan Assessment: This is an 85-year-old lady with past medical history significant for CHF, nonischemic cardiomyopathy (EF 15-20% in 2014, now 55%), CKD, IDDM, sigmoid carcinoma status post polypectomy, frequent falls, remote history of DVT now off warfarin who was sent to the hospital for left-sided weakness and dysarthria [facility]. Her speech was back to baseline upon presentation to the hospital, however left-sided weakness persisted. X ray Knee Knee x-ray showed :Near complete resolution of previously seen suprapatellar knee joint, Decreasing prepatellar soft tissue swelling. Mild tricompartmental degenerative changes again noted. Osteopenia. No acute fracture. MRI 04/16 There is a small acute infarct centered within the right precentral gyrus that corresponds to the motor association area of the left lower extremity. This acute finding superimposed upon a few additional chronic cortical infarcts. Carotid doppler 1. RIGHT: Minimal, nonhemodynamically significant stenosis of the proximal right internal carotid artery corresponding to a 0-49% stenosis by velocity criteria. 2. LEFT: Minimal, nonhemodynamically significant stenosis of the proximal left internal carotid artery corresponding to a 0-49% stenosis by velocity criteria. Problem list/Assessment and Plan - Possible discharge tomorrow Ischemia CVA Patient will be continued to be monitored on Telemetry floor for any underlying atrial fibrillation. She is on neuro checks, Carotid doppler significant for non hemodynamical significant stenosis. Neurology evaluated the patient on 04/17/16 and recommend CTA which can not be given due to underlying renal dysfunction. Patient is started on empiric plavix per neurologist and Complaint Specialist's recommendations. Patient passed swallow evaluation. PT/OT on board Antihypertensive meds on hold (BP range 110-122/58-78 now), consider restarting slowly Hyperkalemia unknown etiology - recovered K-4.8 Acute on Chronic kidney disease We will maintain the hydration We will avoid the nephrotoxin including NSAIDs. Regular monitoring of creatinine Hx of knee pain (right and left) Tylenol as needed HFrEF, nonischemic cardiomyopathy (EF 15-20% in 2014), HTN Home meds including isosorbide mononitrate, Coreg, Lasix ON HOLD due to borderline BP, We will discussed with attending to restart the medication Repeat echo shows EF 55% type -2 Diabetes: Will check blood sugar 3 times a day and the bedtime and gave NovoLog according to the sliding scale DVT prophylaxis -heparin/ALP S Diet-heart healthy diet CODE STATUS-DNR/DNI Problem List: 1. Stroke 2. Acute on chronic renal failure 3. CHF (congestive heart failure) 4. Diabetes mellitus type 2 5. 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 Patient appears more alert today. Stroke confirmed by brain MRI. Carotid doppler negative. Will continue high dose statin, echocardiogram, neurology and cardiology consults. Unable to obtain CTA due to renal function. Start Plavix 75mg daily. Follow cardiology recommendations. Echo done which shows improvement in EF to 55%. BP improving, will restart cardiac meds as tolerated. Anticipated discharge tomorrow.
[2016-04-20 08:38] VITALS: BP 138/76
[2016-04-20 16:07] VITALS: BP 140/60
[2016-04-21 00:45] VITALS: BP 102/52
--- NOTE | 2016-04-21 08:29 | PN- Housestaff ---
ENRIQUE GARBER,LEATHA 04/21/16 0829: Subjective Follow-up For: Anterior cerebral artery infarct Complaints: no complaints Tele-Events Since Last Visit: Normal sinus rhythm with heart rate between 72-80 Subjective: Patient seen, examined at the bedside. Left upper and lower limb power is 0/5. Denies any active complaints. denies headache, nausea, vomiting, constipation, diarrhea, palpitation. Review of Systems Constitutional: Denies: no symptoms. Comments: Denies of any active complaints Objective Last 24 Hrs of Vital Signs/I&O Vital Signs Date Time Temp Pulse Resp B/P Pulse O2 O2 Flow FiO2 Ox Delivery Rate 04/21 1600 97.8 86 20 102/52 98 Room Air 04/21 1104 98.0 72 20 128/60 Physical Exam General Appearance: Alert, Oriented X3, Cooperative, No Acute Distress Skin: No Rashes, No Breakdown Cardiovascular: Regular Rate, Normal S1, Normal S2 Lungs: Clear to Auscultation, Normal Air Movement Abdomen: Soft, No Tenderness Neurological: alert and oriented to time, place and person,left facial weakness.left arm/leg 0/5 Extremities: No Clubbing, No Cyanosis, No Edema Vascular: Normal Pulses, Pulses Symmetrical Assessment/Plan Assessment: This is an 85-year-old lady with past medical history significant for CHF, nonischemic cardiomyopathy (EF 15-20% in 2015, now 55%), CKD, IDDM, sigmoid carcinoma status post polypectomy, frequent falls, remote history of DVT now off warfarin who was sent to the hospital for left-sided weakness and dysarthria [facility]. Her speech was back to baseline upon presentation to the hospital, however left-sided weakness persisted. X ray Knee Knee x-ray showed :Near complete resolution of previously seen suprapatellar knee joint, Decreasing prepatellar soft tissue swelling. Mild tricompartmental degenerative changes again noted. Osteopenia. No acute fracture. MRI 04/16 There is a small acute infarct centered within the right precentral gyrus that corresponds to the motor association area of the left lower extremity. This acute finding superimposed upon a few additional chronic cortical infarcts. Carotid doppler 1. RIGHT: Minimal, nonhemodynamically significant stenosis of the proximal right internal carotid artery corresponding to a 0-49% stenosis by velocity criteria. 2. LEFT: Minimal, nonhemodynamically significant stenosis of the proximal left internal carotid artery corresponding to a 0-49% stenosis by velocity criteria. Problem list/Assessment and Plan - Possible discharge today Ischemia CVA Vital signs stable, Patient is clinically stable so can be discharged. She can have CTA as an outpatient when renal function Improved. Patient is started on empiric plavix per neurologist and Coin Wrapping Machine Operator's recommendations. Patient passed swallow evaluation. PT/OT on board Antihypertensive meds on hold (BP range 110-122/58-78 now), consider restarting slowly Hyperkalemia unknown etiology - recovered K-4.8 Acute on Chronic kidney disease We will maintain the hydration We will avoid the nephrotoxin including NSAIDs. Regular monitoring of creatinine Hx of knee pain (right and left) Tylenol as needed HFrEF, nonischemic cardiomyopathy (EF 15-20% in 2014): We will start coreg as first and if needed, then nitroglycerin as a second choice antihypertensive medication Repeat echo shows EF 55% type -2 Diabetes: We will restart patient on Januvia as before DVT prophylaxis -heparin/ALP S Diet-heart healthy diet CODE STATUS-DNR/DNI Problem List: 1. Acute on chronic renal failure 2. 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 Patient appears more alert today. Stroke confirmed by brain MRI. Carotid doppler negative. Will continue high dose statin, echocardiogram, neurology and cardiology consults. Unable to obtain CTA due to renal function. Start Plavix 75mg daily. Follow cardiology recommendations. Echo done which shows improvement in EF to 55%. BP improving, will restart cardiac meds as tolerated. Will go to [facility] today. As BP tolerates, will start Coreg, then nitrate, then Hydralazine. Should also attempt to start ACEi if BP and renal function tolerate it. This is all explained in the discharge summary and CMR.
[2016-04-21 08:30] VITALS: BP 110/70; BP 120/60
[2016-04-21] MEDS ORDERED: PLAVIX75 M1 PO (10:44)
[2016-04-21] MEDS ORDERED: ATORVASTATIN CA80 M1 PO (10:44)
[2016-04-21 11:04] VITALS: BP 128/60
--- NOTE | 2016-04-21 12:26 | PN- Cardiology ---
Subjective Subjective: Sitting up in her chair and appears comfortable. Still with left-sided weakness. No chest pain, dyspnea, or palpitations. Objective Vital Signs and I&Os Vital Signs Date Time Temp Pulse Resp B/P Pulse O2 O2 Flow FiO2 Ox Delivery Rate 04/21 1104 98.0 72 20 128/60 04/21 0830 97.8 87 20 120/60 97 Room Air 04/21 0045 97.9 94 20 102/52 97 Room Air 04/20 1607 98.2 92 20 140/60 98 Intake & Output 04/21 1600 04/21 0800 04/21 0000 04/20 1600 04/20 0800 04/20 0000 Intake Total 250 250 480 340 Output Total 250 250 Balance 250 0 480 90 Intake, IV 10 10 Intake, Oral 240 240 480 340 Output, Urine 250 250 Patient 168 lb Weight Physical Exam: General: no apparent distress. Eyes: No obvious scleral icterus. HEENT: No jugular venous distention or abnormal jugular venous pulsations. Cardiovascular: Normal intensity S1/S2. Respiratory: No rales or rhonchi Abdomen: no guarding or rebound tenderness. Musculoskeletal: No clubbing or cyanosis noted, no edema Skin: warm Neurologic: Left-sided weakness Current Medications: Current Medications Sig/Ethel Start time Last Medication Dose Route Stop Time Status Admin Atorvastatin Calcium 80 MG 1700 04/16 1700 AC 04/20 PO 1546 Clopidogrel Bisulfate 75 MG DAILY 04/18 1000 AC 04/21 PO 0936 Heparin Sodium 5,000 UNIT Q8 04/16 2200 AC 04/21 (Porcine) SC 0553 Insulin Aspart 0 TIDAC 04/17 0800 AC 04/21 SC 1210 Oxycodone/ 1 TAB Q6P PRN 04/16 2000 AC 04/21 Acetaminophen PO 0350 Simethicone 80 MG Q6P PRN 04/17 1545 AC PO Spironolactone 25 MG DAILY 04/16 1947 AC 04/21 PO 0936 Results Last 48 Hrs of Labs/Mics: Laboratory Tests 04/21/16 0655: Anion Gap 13, Estimated GFR 28 L, BUN/Creatinine Ratio 28.8 H 04/20/16 0710: Anion Gap 13, Estimated GFR 27 L, BUN/Creatinine Ratio 31.7 H Recent Imaging Studies: Telemetry tracings were personally reviewed and shows sinus rhythm with a short period of AIVR Assessment/Plan Assessment/Plan 1. Acute CVA 2. History of severe nonischemic cardiomyopathy with now recovered EF 3. Hx of significant mitral regurgitation 4. Chronic systolic congestive heart failure 5. Chronic renal insufficiency with hyperkalemia not on DAY inhibitor therapy 6. History of DVT in 2014 for which she completed a Coumadin course 7. Hx DM/HTN Doing well. Telemetry confirms no evidence of silent afib thus far. Continue Plavix as recommended by Neurology. Continue statin. Echo shows that her EF/MR has recovered on her antimyopathic regimen. She is hemodynamically stable. Recommend restarting carvedilol at low dose (6.25 mg PO BID prior to discharge). She appears euvolemic on exam. Would continue on telemetry until discharge to continue to monitor for silent afib. Thien Schumacher MD [facility] Continue telemetry? Yes
[2016-04-21 16:00] VITALS: BP 102/52
== END 2016-04-21 17:46 | DRG 65 ==
LOC: ENRESERVTM → CANRESERV → ENRESERVDT → ERH 10:21 → ENPENDDIS 15:54 → 1NO 15:54 → ERHI 15:54 → 1NO 17:47
PROVIDERS: Emergency Medicine; Internal Medicine; ADMIT Internal Medicine
DX: I63.9 Cerebral infarction, unspecified (principal); G81.94 Hemiplegia, unspecified affecting left nondominant side; I42.8 Other cardiomyopathies; I13.0 Hypertensive heart and chronic kidney disease with heart failure and stage 1 through stage 4 chronic kidney disease, or unspecified chronic kidney disease; I50.22 Chronic systolic (congestive) heart failure; E11.9 Type 2 diabetes mellitus without complications; D64.9 Anemia, unspecified; N18.9 Chronic kidney disease, unspecified; E87.5 Hyperkalemia; E78.5 Hyperlipidemia, unspecified; Z66 Do not resuscitate; Z79.84 Long term (current) use of oral hypoglycemic drugs
CPT/HCPCS: 1NP; 70551; 36415; 73562-LT; 81003; 82436; 93005; 93010; 93306; 96372; 97110-GO; 97112-GO; 97161-GP; 97167-GO; 97530-GO; J1644; J1885

== ENCOUNTER 2017-07-04 18:36 | Emergency (ER) | payer OTHER, MEDICARE ==
[~2017-07-04 18:36] MED LIST changes: +ATORVASTATIN CA80 M1 PO; +PLAVIX75 M1 PO
--- NOTE | 2017-07-04 18:51 | ED NEURO DEFICIT/STROKE ---
History of Present Illness General Chief Complaint: General Adult Stated Complaint: BIBA FOR HYPERTENSION Source: patient, family Exam Limitations: poor historian Vital Signs & Intake/Output Vital Signs & Intake/Output Vital Signs Date Time Temp Pulse Resp B/P B/P Pulse O2 O2 Flow FiO2 Mean Ox Delivery Rate 07/05 2103 98.9 104 18 160/92 99 Room Air 07/04 1932 Room Air 07/04 1858 98.4 112 18 196/86 98 Room Air ED Intake and Output 07/05 0000 07/04 1200 Intake Total 120 Output Total 300 Balance -180 Intake, Oral 120 Output, Urine 300 Allergies Coded Allergies: NO KNOWN ALLERGIES (01/01/13) Reconcile Medications Atorvastatin Calcium 80 MG TABLET 80 MG PO 1700 Stroke Clopidogrel Bisulfate (Plavix) 75 MG TABLET 75 MG PO DAILY Stroke Sitagliptin Phosphate (Januvia) 25 MG TABLET 1 TAB PO DAILY DM (Reported) Spironolactone (Aldactone) 25 MG TABLET 1 TAB PO DAILY WATER PILL (Reported) Triage Nurses Notes Reviewed? 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 Currently patient is asymptomatic denies any headache blurred vision fever chills cough chest pain arm pain jaw pain or difficulty speaking. The daughter does present to the emergency room and which daughter indicates that patient is at her baseline mental capacity EMS states that on arrival there was no neurovascular deficit compared to baseline Blood pressure was elevated on arrival (dEwin Dubon) Past History Travel History Traveled to [place] past 21 day No Medical History Any Pertinent Medical History? see below for history Neurological: DIABETIC NEROPATHY EENT: NONE Cardiovascular: CHF, hypertension, hyperlipidemia, nonischemic cardiomyopathy with an LVEF of 15-20% LVEF of 15-20% hypertensive heart disease FALL HX Respiratory: NONE Gastrointestinal: NONE Hepatic: NONE Renal: chronic kidney disease Musculoskeletal: NONE Psychiatric: 1- Endocrine: diabetes Blood Disorders: NONE Cancer(s): SIgmoid Carcinoma, s/p Polypectomy CARDIOLOGIST/Reproductive: NONE History of MRSA: No History of VRE: No History of CDIFF: No Influenza Vaccine: 11/17/15 Surgical History Surgical History: non-contributory Psychosocial History Who do you live with Patient/Self Services at Home None What is your primary language Romansh Family History Family History, If Any: FATHER (HTN). MOTHER (DM). BROTHER BROTHER (Lung Cancer). Relation not specified for: FH: diabetes mellitus FH: hypertension Hx Contributory? No (Edwin Dubon) Review of Systems Review of Systems Constitutional: Reports: no symptoms. EENTM: Reports: no symptoms. Respiratory: Reports: no symptoms. Cardiovascular: Reports: no symptoms. GI: Reports: no symptoms. Genitourinary: Reports: no symptoms. Musculoskeletal: Reports: see HPI. Skin: Reports: no symptoms. Neurological/Psychological: Reports: see HPI. Hematologic/Endocrine: Reports: no symptoms. Immunologic/Allergic: Reports: no symptoms. All Other Systems: Reviewed and Negative (Edwin Dubon) Physical Exam Physical Exam General Appearance: no apparent distress, alert, comfortable Head: atraumatic Eyes: Bilateral: normal appearance, PERRL, EOMI. Ears, Nose, Throat: moist mucous membrane, hearing grossly normal, Tympanic normal, pharynx normal Neck: normal inspection, full range of motion Respiratory: normal breath sounds, chest non-tender, no respiratory distress Cardiovascular: tachycardia Gastrointestinal: normal bowel sounds, soft, non-tender, no organomegaly Psychiatric: awake, alert Cranial Nerves: normal hearing, normal speech, PERRL Motor/Sensory: no motor/sensory deficits Skin: intact, normal color, warm/dry Comments: Alert and oriented 1 to location, Extremities- left upper and left lower extremities unable to elevate versus gravity Right upper and lower extremities full active range of motion nontender Core Measures CVA/TIA Diagnosis: No Sepsis Present: No Sepsis Focused Exam Completed? No (Edwin Dubon) Progress Differential Diagnosis: acute glaucoma, Jackson's Palsy, drug intoxication, electrolyte imbalance, encephalitis, hypoglycemia, intracranial Hem., intracranial mass/tumor, meningitis, migraine RUIZ, seizure disorder, stroke, subarachnoid Hem., vertebrobasilar insuff. Plan of Care: Orders Procedure Date/time Status Add-on Test (ER Only) 07/05 2019 Active CULTURE,URINE 07/05 1999 Active MAGNESIUM 07/04 185 Complete URINALYSIS 07/04 1848 Complete TROPONIN LEVEL 07/04 1848 Complete COMPREHENSIVE METABOLIC PANEL 07/04 1848 Complete CBC WITHOUT DIFFERENTIAL 07/04 1848 Complete EKG 07/04 1848 Active Laboratory Tests 07/04/171999: Urinalysis LIGHT H, Urine Color YEL, Urine Clarity TURBD H, Urine pH 6.0, Ur Specific [place] 1.020, Urine Protein >=300 H, Urine Ketones NEG, Urine Nitrite NEG, Urine Bilirubin NEG, Urine Urobilinogen 0.2, Ur Leukocyte Esterase LARGE H , Ur Microscopic SEDIMENT EXAMINED, Urine RBC 1-3, Urine WBC PACKD H, Ur Epithelial Cells FEW, Urine Bacteria PACKD H, Urine Mucus RARE, Urine Hemoglobin MOD H, Urine Glucose NEG 07/04/171915: Magnesium 1.5 L 07/04/171915: Anion Gap 11, Estimated GFR 39 L, BUN/Creatinine Ratio 16.2, Glucose 134 H, Calcium 8.8, Total Bilirubin 0.2, AST 17, ALT 20, Alkaline Phosphatase 161 H, Troponin I < 0.01, Total Protein 7.2, Albumin 3.6, Globulin 3.6, Albumin/ Globulin Ratio 1.0 L, CBC w Diff NO MAN DIFF REQ, RBC 4.43, MCV 82.8, MCH 27.3, MCHC 33.0, RDW 15.5 H, MPV 6.7 L, Gran % 73.3, Lymphocytes % 18.2 L, Monocytes % 6.1, Eosinophils % 2.1, Basophils % 0.3, Absolute Granulocytes 5.3, Absolute Lymphocytes 1.3, Absolute Monocytes 0.4, Absolute Eosinophils 0.2, Absolute Basophils 0 Microbiology 07/05 1999 URINE ROUT: Urine Culture - RECD Upon initial presentation is resting calmly at bedside denies any symptoms daughters presents stating that she is at her normal mental baseline functioning , patient following all commands appropriately denies any pain Daughter states that patient's deficit of left lower and upper extremities are from previous remote stroke history Patient's blood work was essentially unremarkable and CT scan showed no acute process. Daughter does state that patient was complaining of mild facial twitching and left arm twitching however nothing was noticeable per daughter, Patient does have concerns of urinary tract infection however no concern for sepsis No leukocytosis or fever noted patient was given ceftriaxone patient's blood pressure and heart rate improved prior to discharge Discussed disposition plan with Dr. Ruby who agrees Diagnostic Imaging: Viewed by Me: CT Scan. Radiology Impression: no acute abnormality Initial ED EKG: SINUS TACHYCARDIA 102 BPM Prior EKG: unchanged Comments: PATIENT: SHIRA BUCKNER PRESENT AGE: 86 PATIENT ACCOUNT NO: [id number] : 29 LOCATION: [facility] ORDERING PHYSICIAN: Edwin CUNHA SERVICE DATE: 07/04/17 EXAM TYPE: CAT - CT HEAD WO IV CONTRAST EXAMINATION: CT HEAD without contrast CLINICAL INFORMATION: CVA COMPARISON: No prior CT scan available for comparison. TECHNIQUE: Computer axial tomographic sections of the head acquired, department standard protocol noncontrast DLP: 648 mGy-cm FINDINGS: CEREBRAL HEMISPHERES: Redemonstration of encephalomalacia in the RIGHT parietal lobe likely sequela of an old infarct, this has not changed. No CT evidence of an acute infarct. BRAIN PARENCHYMA: Deep white matter and paraventricular hypoattenuation, nonspecific; however, in this patient's age group most likely changes secondary to chronic ischemia/microvascular angiopathy. SUBDURAL SPACE: No bleed. BASAL GANGLIA AND PINEAL GLAND: Calcifications bilaterally likely age-related VENTRICLES: Symmetric and normal in size. CEREBELLUM AND BRAINSTEM: No space-occupying mass, hemorrhage or acute infarct. CEREBELLOPONTINE ANGLES: No lesion found. ORBITS: No intraorbital mass. VESSELS: Unremarkable SKULL BASE: Unremarkable INCLUDED SINUSES AT SKULL BASE: Clear SKULL AND SKIN: No fracture or bone lesion found. IMPRESSION: 1. Deep white matter and periventricular hypoattenuation, nonspecific; however, in this patient's age group most likely sequela of chronic microvascular angiopathy ischemia. 2. No CT evidence of an acute infarct. Unchanged old infarct encephalomalacia RIGHT parietal lobe. DICTATED BY: Rajat GARBER,Edson (Edwin Dubon) Departure Departure Disposition: HOME OR SELF CARE Condition: Stable Clinical Impression Primary Impression: UTI (urinary tract infection) Secondary Impressions: Muscle spasm Referrals: Jared Anderson MD (PCP/Family) Additional Instructions: W-10 DICTATED INSTRUCTIONS Departure Forms: Customer Survey General Discharge Information (Edwin Dubon) PA/[employer] Co-Sign Statement Statement: ED Attending supervision documentation- [] I saw and evaluated the patient. I have also reviewed all the pertinent lab results and diagnostic results. I agree with the findings and the plan of care as documented in the PA's/[employer] [employer]'s documentation. [x] I have reviewed the ED Record and agree with the PA's/[employer]'s documentation. [] Additions or exceptions (if any) to the PAs/[employer]'s note and plan are summarized below: [] (Flori GARBER,Dimitri Truong)
[2017-07-04 19:32] LABS: ABSOLUTE BASOPHIL COUNT 0 /CUMM (0.0-0.2); ABSOLUTE EOSINOPHIL COUNT 0.2 /CUMM (0.0-0.7); ABSOLUTE GRANULOCYTE CT 5.3 /CUMM (1.4-6.5); ABSOLUTE LYMPH COUNT 1.3 /CUMM (1.2-3.4); ABSOLUTE MONOCYTE COUNT 0.4 /CUMM (0.10-0.60); BASOPHIL % 0.3 % (0.0-2.0); EOSINOPHIL % 2.1 % (0-5); GRANULOCYTE % 73.3 % (42.2-75.2); HEMATOCRIT 36.6 % (37-47); MEAN CORPUSCULAR HGB 27.3 PG (27.0-31.0); MEAN CORPUSCULAR VOLUME 82.8 FL (81.0-99.0); MEAN PLATELET VOLUME 6.7 FL (7.4-10.4); PLATELET COUNT 206 /CUMM (130-400); RBC DISTRIBUTION WIDTH 15.5 % (11.5-14.5); RED BLOOD CELL CT 4.43 /CUMM (4.20-5.40); WHITE BLOOD CELL COUNT 7.2 /CUMM (4.8-10.8)
--- NOTE | 2017-07-04 21:00 | CT SCAN REPORT ---
EXAMINATION: CT HEAD without contrast CLINICAL INFORMATION: CVA COMPARISON: No prior CT scan available for comparison. TECHNIQUE: Computer axial tomographic sections of the head acquired, department standard protocol noncontrast DLP: 648 mGy-cm FINDINGS: CEREBRAL HEMISPHERES: Redemonstration of encephalomalacia in the RIGHT parietal lobe likely sequela of an old infarct, this has not changed. No CT evidence of an acute infarct. BRAIN PARENCHYMA: Deep white matter and paraventricular hypoattenuation, nonspecific; however, in this patient's age group most likely changes secondary to chronic ischemia/microvascular angiopathy. SUBDURAL SPACE: No bleed. BASAL GANGLIA AND PINEAL GLAND: Calcifications bilaterally likely age-related VENTRICLES: Symmetric and normal in size. CEREBELLUM AND BRAINSTEM: No space-occupying mass, hemorrhage or acute infarct. CEREBELLOPONTINE ANGLES: No lesion found. ORBITS: No intraorbital mass. VESSELS: Unremarkable SKULL BASE: Unremarkable INCLUDED SINUSES AT SKULL BASE: Clear SKULL AND SKIN: No fracture or bone lesion found. IMPRESSION: 1. Deep white matter and periventricular hypoattenuation, nonspecific; however, in this patient's age group most likely sequela of chronic microvascular angiopathy ischemia. 2. No CT evidence of an acute infarct. Unchanged old infarct encephalomalacia RIGHT parietal lobe.
[2017-07-04 21:04] VITALS: BP 160/92
== END 2017-07-04 23:36 ==
LOC: ERH 18:36
PROVIDERS: Physician Assistant
DX: N39.0 Urinary tract infection, site not specified (principal); M62.838 Other muscle spasm
CPT/HCPCS: 81001; 87071; 87086; 93005; 93010; 96374; J0696